=== PATIENT | male | born 1965 | race Caucasian/White ===

== ENCOUNTER → 2021-07-19 13:52 | Outpatient (BNVA) | payer OTHER, SELFPAY | PROVIDERS: PCP Internal Medicine; Visit Provider Internal Medicine Cardiovascular Disease | DX: I25.118 Atherosclerotic heart disease of native coronary artery with other forms of angina pectoris (principal) | CPT/HCPCS: 93005 ==

== ENCOUNTER → 2021-08-21 10:49 | Outpatient (REF) | payer OTHER, SELFPAY ==
--- NOTE | 2021-08-21 10:57 | CA_ITS ---
Acquisition Time: 2021-08-21 11:17:09 Total Exercise Time: 00:08:36 Test Indications: CP,PALPITAIONS Medications: SEE CHART Protocol: [place] Max HR: 169 BPM 102% of Pred: 165 BPM Max BP: 148/068 mmHG Max Work Load: 10.1 METS Exercise stress test with exercise 8 min 36 sec of [place] protocol, achieving 91% MPHR, with moderate shortness of breath, no chest discomfort, without arrythmia, with normotensive response to exercise, without EKG changes meeting criteria for ischemia. Heart rate noted to recover quickly. Echo images obtained by tech at rest and immediately post peak exercise. Definity contrast used. Test reviewed with Dr Silverio Referred By: Clifford Myrick Overread By: MADDIE JOHNSON
== END ==
LOC: HO.CARD 10:49
PROVIDERS: PCP Internal Medicine; Visit Provider Internal Medicine Cardiovascular Disease
DX: I20.8 Other forms of angina pectoris (principal); R07.9 Chest pain, unspecified; R00.2 Palpitations
CPT/HCPCS: 93350; Q9957

== ENCOUNTER → 2021-09-26 14:38 | Outpatient (BNVA) | payer OTHER, SELFPAY | PROVIDERS: PCP Internal Medicine; Visit Provider Internal Medicine Cardiovascular Disease | DX: Z13.89 Encounter for screening for other disorder (principal) ==

== ENCOUNTER → 2022-01-28 14:23 | Outpatient (BNVA) | payer OTHER, SELFPAY | PROVIDERS: PCP Internal Medicine; Visit Provider Internal Medicine Cardiovascular Disease | DX: I25.118 Atherosclerotic heart disease of native coronary artery with other forms of angina pectoris (principal) | CPT/HCPCS: 93005 ==

== ENCOUNTER 2022-06-03 11:28 | Inpatient (IN) | payer BC, SELFPAY ==
--- NOTE | ~2022-06-03 | XR_ITS ---
EXAMINATION: XR CHEST CLINICAL INFORMATION: Chest pain. COMPARISON: May 17, 2018. TECHNIQUE: Portable AP view of the chest was obtained. XR/XR chest 1V FINDINGS/IMPRESSION: The study is limited by portable technique and low lung volumes. There is no acute radiographic finding. No infiltrate, effusion, pneumothorax is appreciated as such. The cardiovascular structures, mediastinum, diaphragm, bones, and soft tissues appear unremarkable.
--- NOTE | 2022-06-03 11:31 | ECG_ITS ---
Test Reason : chest pain Blood Pressure : / mmHG Vent. Rate : 092 BPM Atrial Rate : 092 BPM P-R Int : 146 ms QRS Dur : 086 ms QT Int : 338 ms P-R-T Axes : 055 016 054 degrees QTc Int : 417 ms Normal sinus rhythm Normal ECG When compared with ECG of 18-MAY-2018 07:26, No significant change was found Referred By: Saeed Monsalve Electronically Signed By:BALJIT FISHMAN MD
[2022-06-03 11:32] VITALS: BP 150/90; PULSE 100; RESP 18; TEMP 36.4; O2SAT 98; BMI 31.6
--- NOTE | 2022-06-03 11:34 | ED.GENADULT ---
HPI - General Adult General Chief complaint: Chest Pain Stated complaint: Chest pain Time Seen by Provider: 06/03/22 13:00 Related Data Home Medications Medication Instructions Recorded Confirmed aspirin 81 mg tablet,delayed 81 mg PO DAILY 07/19/21 06/03/22 release lisinopril 10 mg tablet 10 mg PO DAILY 07/19/21 06/03/22 insulin glargine 100 unit/mL (3 20 unit subcut DAILY 01/28/22 06/03/22 mL) subcutaneous pen (Lantus Solostar U-100 Insulin) [employer] PACK 1 packet PO DAILY 06/03/22 06/03/22 atorvastatin 40 mg tablet 40 mg PO DAILY 06/03/22 06/03/22 Previous Rx's Medication Instructions Recorded heparin (porcine) 25,000 unit/250 25,000 unit (250 mL) continuous IV 06/03/22 mL in 0.45 % sodium chloride IV infusion .Q0M #6,000 mL soln heparin (porcine) 5,000 unit/mL 3,700 unit (0.74 mL) IVPUSH 06/03/22 injection solution PROTOCOL BOLUS PRN 40 Unit/Kg - Heparin Protocol #250 mL heparin (porcine) 5,000 unit/mL 7,300 unit (1.46 mL) IVPUSH 06/03/22 injection solution PROTOCOL BOLUS PRN 80 Unit/Kg - Heparin Protocol #25 mL metoprolol tartrate 25 mg tablet 12.5 mg PO BID #60 tabs 06/03/22 Allergies Allergy/AdvReac Type Severity Reaction Status Date / Time No Known Allergies Allergy Verified 01/28/22 14:24 [facility] Past Medical History Medical History CAD (coronary artery disease) HLD (hyperlipidemia) HTN (hypertension) Surgical History History of appendectomy History of cardiac cath History of neck surgery History of umbilical hernia repair Family History Family History Mother HTN (hypertension) Father HTN (hypertension) Social History Social History Alcohol intake: never Patient Tobacco Use Status: Never used Tobacco Smoked in Last 30 Days: No Use of substances other than those prescribed or required for medical reasons: No Any prior treatment program specific to substance use: No Advance Directives: No Advance Directives Information Provided: No Nutrition Risks: No Nutritional Risk Physical Exam ED Vital Signs: Vital Signs - 24 hr 06/03/22 11:32 06/03/22 14:10 Temperature 97.6 F Pulse Rate 100 89 Respiratory Rate 18 16 Blood Pressure 150/90 H 140/93 H Pulse Oximetry 98 95 Oxygen Delivery Method Room Air Room Air BMI result Body Mass Index 31.6 Course Course Course Narrative: RME: 56 yold male with pmh of stents presents to the ED for chest left sharp chest pain that began 30 minutes ago. Physical exam negative for leg swelling, calf pain, or pitting edema. patient denies pleurisy. EKG and labs ordered. EKG negative stemi. spoke with nurse serrano to have patient brought in. Due to medical history of two stents. Medications Administered Generic Name Dose Route Start Last Admin Trade Name Freq PRN Reason Stop Dose Admin Heparin Sodium/Sodium Chloride 25,000 unit in 250 mls @ 0 mls/hr 06/03/22 16:00 06/03/22 18:03 Heparin Sodium,Porcine/1/2ns IVCONT 10.91 units/kg/hr .Q0M JUTSYNA 10 mls/hr Titration Protocol Per Protocol Discontinued Medications Generic Name Dose Route Start Last Admin Trade Name Freq PRN Reason Stop Dose Admin Heparin Sodium (Porcine) 3,700 unit 06/03/22 16:13 06/03/22 16:28 Heparin Sodium,Porcine 5,000 Unit/Ml Vial IVPUSH 06/03/22 16:14 3,700 unit ONCE ONE Administration Nitroglycerin 0.5 inch 06/03/22 14:49 06/03/22 15:09 Nitroglycerin 2 % Oint 1 Gm Packet TRANSDERMA 06/03/22 14:50 0.5 inch ONCE ONE Administration Medical Decision Making Lab Data 06/03/22 11:51 06/03/22 11:51 Labs: Lab Results 06/03/22 06/03/22 06/03/22 Range/Units 11:51 11:51 11:51 WBC 11.4 H (4.8-10.8) X10*3/uL RBC 5.39 (4.60-5.80) X10*6/uL Hgb 16.4 (14.0-18.0) g/dl Hct 47.2 (42.0-52.0) % MCV 87.6 (80.0-98.0) fL MCH 30.4 (27.0-33.0) pg MCHC 34.7 (31.0-36.0) g/dl RDW 12.4 (11.0-16.0) % Plt Count 273 (160-400) X10*3/uL MPV 8.5 L (9.4-12.4) fL Immature Gran % (Auto) 0.4 (0.0-0.4) % Neut % (Auto) 79.2 H (45-73) % Lymph % (Auto) 12.3 L (20-40) % Garden % (Auto) 6.1 (2-11) % Eos % (Auto) 1.3 (0-4) % Baso % (Auto) 0.7 (0-2) % Lymph # (Auto) 1.4 (1.2-4.9) X10*3/uL [place] # (Auto) 0.7 (0.1-1.2) X10*3/uL Eos # (Auto) 0.2 (0.0-0.4) X10*3/uL Baso # (Auto) 0.1 (0.0-0.2) X10*3/uL Abs Immat Gran (auto) 0.04 H (0.00-0.03) X10*3/uL Absolute Neuts (auto) 9.0 H (2.0-8.3) x10*3/uL Absolute Nucleated RBC 0.000 (0.0-0.012) X10*3/uL Nucleated RBC % (auto) 0.0 (0.0-0.2) /100WBC PT 11.3 (10.0-13.1) SEC INR 1.0 (0.9-1.1) APTT 30.5 (26.0-36.4) SEC D-Dimer High Sensitivty NG/ML Sodium 137 (135-145) mmol/L Potassium 4.5 (3.3-5.1) mmol/L Chloride 107 (96-108) mmol/L Carbon Dioxide 20 L (22-29) mmol/L Anion Gap 15 (12-20) BUN 19 H (9-16) mg/dL Creatinine 1.07 (0.5-1.4) mg/dL Estim Creat Clear Calc 83.2 Estimated GFR > 60 Random Glucose 199 H (60-115) mg/dL Calcium 9.5 (8.4-10.2) mg/dL Total Bilirubin 0.6 (0.0-1.0) mg/dL AST 22 (5-37) U/L ALT 36 (0-40) U/L Alkaline Phosphatase 61 (39-117) U/L Troponin I High Sens (<3.5-35.0) ng/L B-Natriuretic Peptide (<100) pg/mL Total Protein 6.8 (6.5-8.0) g/dL Albumin 4.1 (3.5-5.0) g/dL Influenza Type A (PCR) (Negative) Influenza Type B (PCR) (Negative) RSV RNA Qual (PCR) (Negative) SARS-CoV-2 RNA (RT-PCR) (Negative) 06/03/22 06/03/22 06/03/22 Range/Units 11:51 11:51 11:51 WBC (4.8-10.8) X10*3/uL RBC (4.60-5.80) X10*6/uL Hgb (14.0-18.0) g/dl Hct (42.0-52.0) % MCV (80.0-98.0) fL MCH (27.0-33.0) pg MCHC (31.0-36.0) g/dl RDW (11.0-16.0) % Plt Count (160-400) X10*3/uL MPV (9.4-12.4) fL Immature Gran % (Auto) (0.0-0.4) % Neut % (Auto) (45-73) % Lymph % (Auto) (20-40) % [place] % (Auto) (2-11) % Eos % (Auto) (0-4) % Baso % (Auto) (0-2) % Lymph # (Auto) (1.2-4.9) X10*3/uL [place] # (Auto) (0.1-1.2) X10*3/uL Eos # (Auto) (0.0-0.4) X10*3/uL Baso # (Auto) (0.0-0.2) X10*3/uL Abs Immat Gran (auto) (0.00-0.03) X10*3/uL Absolute Neuts (auto) (2.0-8.3) x10*3/uL Absolute Nucleated RBC (0.0-0.012) X10*3/uL Nucleated RBC % (auto) (0.0-0.2) /100WBC PT (10.0-13.1) SEC INR (0.9-1.1) APTT (26.0-36.4) SEC D-Dimer High Sensitivty NG/ML Sodium (135-145) mmol/L Potassium (3.3-5.1) mmol/L Chloride (96-108) mmol/L Carbon Dioxide (22-29) mmol/L Anion Gap (12-20) BUN (9-16) mg/dL Creatinine (0.5-1.4) mg/dL Estim Creat Clear Calc Estimated GFR Random Glucose (60-115) mg/dL Calcium (8.4-10.2) mg/dL Total Bilirubin (0.0-1.0) mg/dL AST (5-37) U/L ALT (0-40) U/L Alkaline Phosphatase (39-117) U/L Troponin I High Sens < 3.5 (<3.5-35.0) ng/L B-Natriuretic Peptide < 10 (<100) pg/mL Total Protein (6.5-8.0) g/dL Albumin (3.5-5.0) g/dL Influenza Type A (PCR) NEGATIVE (Negative) Influenza Type B (PCR) NEGATIVE (Negative) RSV RNA Qual (PCR) NEGATIVE (Negative) SARS-CoV-2 RNA (RT-PCR) NEGATIVE (Negative) 06/03/22 06/03/22 Range/Units 14:05 14:05 WBC (4.8-10.8) X10*3/uL RBC (4.60-5.80) X10*6/uL Hgb (14.0-18.0) g/dl Hct (42.0-52.0) % MCV (80.0-98.0) fL MCH (27.0-33.0) pg MCHC (31.0-36.0) g/dl RDW (11.0-16.0) % Plt Count (160-400) X10*3/uL MPV (9.4-12.4) fL Immature Gran % (Auto) (0.0-0.4) % Neut % (Auto) (45-73) % Lymph % (Auto) (20-40) % [place] % (Auto) (2-11) % Eos % (Auto) (0-4) % Baso % (Auto) (0-2) % Lymph # (Auto) (1.2-4.9) X10*3/uL [place] # (Auto) (0.1-1.2) X10*3/uL Eos # (Auto) (0.0-0.4) X10*3/uL Baso # (Auto) (0.0-0.2) X10*3/uL Abs Immat Gran (auto) (0.00-0.03) X10*3/uL Absolute Neuts (auto) (2.0-8.3) x10*3/uL Absolute Nucleated RBC (0.0-0.012) X10*3/uL Nucleated RBC % (auto) (0.0-0.2) /100WBC PT (10.0-13.1) SEC INR (0.9-1.1) APTT (26.0-36.4) SEC D-Dimer High Sensitivty < 150 NG/ML Sodium (135-145) mmol/L Potassium (3.3-5.1) mmol/L Chloride (96-108) mmol/L Carbon Dioxide (22-29) mmol/L Anion Gap (12-20) BUN (9-16) mg/dL Creatinine (0.5-1.4) mg/dL Estim Creat Clear Calc Estimated GFR Random Glucose (60-115) mg/dL Calcium (8.4-10.2) mg/dL Total Bilirubin (0.0-1.0) mg/dL AST (5-37) U/L ALT (0-40) U/L Alkaline Phosphatase (39-117) U/L Troponin I High Sens 38.0 H D (<3.5-35.0) ng/L B-Natriuretic Peptide (<100) pg/mL Total Protein (6.5-8.0) g/dL Albumin (3.5-5.0) g/dL Influenza Type A (PCR) (Negative) Influenza Type B (PCR) (Negative) RSV RNA Qual (PCR) (Negative) SARS-CoV-2 RNA (RT-PCR) (Negative) Discharge Plan Discharge Clinical Impression: CAD (coronary artery disease), Unstable angina pectoris, Acute non-ST elevation myocardial infarction (NSTEMI) Patient Disposition: Admitted As Inpatient
[2022-06-03 11:59] LABS: MANUAL DIFF FLAG NO
[2022-06-03 12:02] LABS: Basophils Absolute Auto 0.1 X10*3/uL (0.0-0.2); Basophils Percent Auto 0.7 % (0-2); Eosinophils Absolute Auto 0.2 X10*3/uL (0.0-0.4); Eosinophils Percent Auto 1.3 % (0-4); Hematocrit 47.2 % (42.0-52.0); Hemoglobin 16.4 g/dl (14.0-18.0); Imm Gran Abs Auto 0.04 X10*3/uL (0.00-0.03); Imm Gran Pct Auto 0.4 % (0.0-0.4); Lymphocytes Absolute Auto 1.4 X10*3/uL (1.2-4.9); Lymphocytes Percent Auto 12.3 % (20-40); Mean Corpuscular HGB Conc 34.7 g/dl (31.0-36.0); Mean Corpuscular Hemoglobin 30.4 pg (27.0-33.0); Mean Corpuscular Volume 87.6 fL (80.0-98.0); Mean Platelet Volume 8.5 fL (9.4-12.4); Monocytes Absolute Auto 0.7 X10*3/uL (0.1-1.2); Monocytes Percent Auto 6.1 % (2-11); Neutrophils Percent Auto 79.2 % (45-73); Platelet Count 273 X10*3/uL (160-400); Red Blood Count 5.39 X10*6/uL (4.60-5.80); Red Cell Distribution Width 12.4 % (11.0-16.0); White Blood Count 11.4 X10*3/uL (4.8-10.8)
[2022-06-03 12:08] LABS: Prothrombin Time 11.3 SEC (10.0-13.1)
[2022-06-03 12:11] LABS: Partial Thromboplastin Time 30.5 SEC (26.0-36.4)
[2022-06-03 12:15] LABS: Alanine Aminotransferase 36 U/L (0-40); Albumin Level 4.1 g/dL (3.5-5.0); Alkaline Phosphatase 61 U/L (39-117); Anion Gap 15 (12-20); Aspartate Amino Transferase 22 U/L (5-37); Bilirubin Total 0.6 mg/dL (0.0-1.0); Blood Urea Nitrogen 19 mg/dL (9-16); Calcium 9.5 mg/dL (8.4-10.2); Carbon Dioxide 20 mmol/L (22-29); Chloride 107 mmol/L (96-108); Creatinine Clr Calc Pharmacy 83.2; Estimated Glomerular Filt Rate > 60; Glucose Random 199 mg/dL (60-115); Potassium 4.5 mmol/L (3.3-5.1); Sodium 137 mmol/L (135-145); Total Protein 6.8 g/dL (6.5-8.0)
[2022-06-03 12:20] LABS: B Type Natriuretic Peptide < 10 pg/mL (<100)
[2022-06-03 12:29] LABS: Troponin-I High Sensitivity < 3.5 ng/L (<3.5-35.0)
[2022-06-03 12:39] LABS: Influenza A PCR NEGATIVE (Negative); Influenza B PCR NEGATIVE (Negative); Resp Syncy Virus RNA Qual PCR NEGATIVE (Negative); SARS COV2 PCR INHOUSE NEGATIVE (Negative)
--- NOTE | 2022-06-03 13:21 | ED_ITS ---
HPI - Chest Pain General Chief Complaint: Chest Pain Stated Complaint: Chest pain Time Seen by Provider: 06/03/22 13:00 Source: patient and old records reviewed Limitations: no limitations History of Present Illness HPI narrative: Patient arrives complaining of chest pain. It is left-sided. Sharp at 1st and at times of pressure. Worse with deep breath. 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 No recent illnesses. No causative or precipitating factors that he can think of. He is concerned because he has a history of PCI with stent placement in 2019. He has since had occasional chest pain. His last stress test was July of 2021, 10 months ago, and was a normal stress echo. No wall motion abnormality at that time. No recent medication changes or health status changes. Pain is left-sided and nonradiating. No nausea vomiting. No shortness of br eath. No recent cough. Cardiac risk factors include family history, diabetes, prior cardiovascular disease. No thromboembolic history or risk factors Related Data Home Medications Medication Instructions Recorded Confirmed aspirin 81 mg tablet,delayed 81 mg PO DAILY 07/19/21 01/28/22 release lisinopril 10 mg tablet 10 mg PO DAILY 07/19/21 01/28/22 insulin glargine 100 unit/mL (3 unit subcut 01/28/22 01/28/22 mL) subcutaneous pen (Lantus Solostar U-100 Insulin) Previous Rx's Medication Instructions Recorded atorvastatin 40 mg tablet 40 mg PO BEDTIME #60 tabs 07/19/21 Allergies Allergy/AdvReac Type Severity Reaction Status Date / Time No Known Allergies Allergy Verified 01/28/22 14:24 Review of Systems Constitutional: Comments: No fevers or chills Cardiovascular: Comments: Chest pain as described Respiratory: Comments: No dyspnea. No cough Gastrointestinal: Comments: No nausea or vomiting Musculoskeletal: Comments: No leg pain or swelling PMFSH Past Medical History Surgical History History of appendectomy History of cardiac cath History of neck surgery History of umbilical hernia repair Family History Family History Mother HTN (hypertension) Father HTN (hypertension) Social History Social History Alcohol intake: never Patient Tobacco Use Status: Never used Tobacco Smoked in Last 30 Days: No Use of substances other than those prescribed or required for medical reasons: No Any prior treatment program specific to substance use: No Advance Directives: No Advance Directives Information Provided: No Physical Exam Vital Signs: Vital Signs: Last Vital Signs Temp 97.6 F 06/03/22 11:32 Pulse 89 06/03/22 14:10 Resp 16 06/03/22 14:10 BP 140/93 H 06/03/22 14:10 Pulse Ox 95 06/03/22 14:10 O2 Del Method 06/03/22 14:10 BMI result Body Mass Index 31.6 Const: Other: Awake alert. No acute distress. Anxious appearing Chest: Other: Tender to palpation inferior to left pectoralis muscle. This reproduces some of his pain Resp: Other: Clear and equal bilaterally without wheezes rales or rhonchi. Good air entry Cardio: Other: Regular rate and rhythm without murmurs rubs or gallops GI: Other: Soft nontender nondistended Skin: Other: Warm pink and dry Neuro: Other: Nonfocal Psych: Other: Anxious Medications Administered Discontinued Medications Generic Name Dose Route Start Last Admin Trade Name Freq PRN Reason Stop Dose Admin Nitroglycerin 0.5 inch 06/03/22 14:49 06/03/22 15:09 Nitroglycerin 2 % Oint 1 Gm Packet TRANSDERMA 06/03/22 14:50 0.5 inch ONCE ONE Administration Medical Decision Making Medical Decision Making MDM Narrative: Patient with history of prior coronary artery disease with stent placement 4 years ago. He presents today with left-sided chest pain. It is atypical in that it is s lightly sharp and worse with inspiration. He does state that it feels similar to prior to his stent placement. EKG from triage shows normal sinus rhythm without ST elevation or depression. Will do cardiac workup in add on a D-dimer as well. The meantime treat with nitroglycerin and evaluated for her changes in discomfort. 13:27. CBC significant for white count of 11.4 but otherwise normal. Chemistry showed normal creatinine. Glucose is 199. Troponin is less than 3.5.. BNP is normal. Chest x-ray is normal. Will repeat troponin. And re-evaluate after nitroglycerin. Will administer other pain medication as needed 14:49. Patient states pain resolved spontaneously. He did not receive the nitroglycerin. His 2nd troponin is 38, however. Elevated from his 1st value of less than 3.5. 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 15:50. Input from Dr. Linares, cardiology, recommends heparin drip. Will hospitalize here and trend his troponins Lab Data 06/03/22 11:51 06/03/22 11:51 Labs: Lab Results 06/03/22 06/03/22 06/03/22 Range/Units 11:51 11:51 11:51 WBC 11.4 H (4.8-10.8) X10*3/uL RBC 5.39 (4.60-5.80) X10*6/uL Hgb 16.4 (14.0-18.0) g/dl Hct 47.2 (42.0-52.0) % MCV 87.6 (80.0-98.0) fL MCH 30.4 (27.0-33.0) pg MCHC 34.7 (31.0-36.0) g/dl RDW 12.4 (11.0-16.0) % Plt Count 273 (160-400) X10*3/uL MPV 8.5 L (9.4-12.4) fL Immature Gran % (Auto) 0.4 (0.0-0.4) % Neut % (Auto) 79.2 H (45-73) % Lymph % (Auto) 12.3 L (20-40) % [place] % (Auto) 6.1 (2-11) % Eos % (Auto) 1.3 (0-4) % Baso % (Auto) 0.7 (0-2) % Lymph # (Auto) 1.4 (1.2-4.9) X10*3/uL [place] # (Auto) 0.7 (0.1-1.2) X10*3/uL Eos # (Auto) 0.2 (0.0-0.4) X10*3/uL Baso # (Auto) 0.1 (0.0-0.2) X10*3/uL Abs Immat Gran (auto) 0.04 H (0.00-0.03) X10*3/uL Absolute Neuts (auto) 9.0 H (2.0-8.3) x10*3/uL Absolute Nucleated RBC 0.000 (0.0-0.012) X10*3/uL Nucleated RBC % (auto) 0.0 (0.0-0.2) /100WBC PT 11.3 (10.0-13.1) SEC INR 1.0 (0.9-1.1) APTT 30.5 (26.0-36.4) SEC D-Dimer High Sensitivty NG/ML Sodium 137 (135-145) mmol/L Potassium 4.5 (3.3-5.1) mmol/L Chloride 107 (96-108) mmol/L Carbon Dioxide 20 L (22-29) mmol/L Anion Gap 15 (12-20) BUN 19 H (9-16) mg/dL Creatinine 1.07 (0.5-1.4) mg/dL Estim Creat Clear Calc 83.2 Estimated GFR > 60 Random Glucose 199 H (60-115) mg/dL Calcium 9.5 (8.4-10.2) mg/dL Total Bilirubin 0.6 (0.0-1.0) mg/dL AST 22 (5-37) U/L ALT 36 (0-40) U/L Alkaline Phosphatase 61 (39-117) U/L Troponin I High Sens (<3.5-35.0) ng/L B-Natriuretic Peptide (<100) pg/mL Total Protein 6.8 (6.5-8.0) g/dL Albumin 4.1 (3.5-5.0) g/dL Influenza Type A (PCR) (Negative) Influenza Type B (PCR) (Negative) RSV RNA Qual (PCR) (Negative) SARS-CoV-2 RNA (RT-PCR) (Negative) 06/03/22 06/03/22 06/03/22 Range/Units 11:51 11:51 11:51 WBC (4.8-10.8) X10*3/uL RBC (4.60-5.80) X10*6/uL Hgb (14.0-18.0) g/dl Hct (42.0-52.0) % MCV (80.0-98.0) fL MCH (27.0-33.0) pg MCHC (31.0-36.0) g/dl RDW (11.0-16.0) % Plt Count (160-400) X10*3/uL MPV (9.4-12.4) fL Immature Gran % (Auto) (0.0-0.4) % Neut % (Auto) (45-73) % Lymph % (Auto) (20-40) % [place] % (Auto) (2-11) % Eos % (Auto) (0-4) % Baso % (Auto) (0-2) % Lymph # (Auto) (1.2-4.9) X10*3/uL [place] # (Auto) (0.1-1.2) X10*3/uL Eos # (Auto) (0.0-0.4) X10*3/uL Baso # (Auto) (0.0-0.2) X10*3/uL Abs Immat Gran (auto) (0.00-0.03) X10*3/uL Absolute Neuts (auto) (2.0-8.3) x10*3/uL Absolute Nucleated RBC (0.0-0.012) X10*3/uL Nucleated RBC % (auto) (0.0-0.2) /100WBC PT (10.0-13.1) SEC INR (0.9-1.1) APTT (26.0-36.4) SEC D-Dimer High Sensitivty NG/ML Sodium (135-145) mmol/L Potassium (3.3-5.1) mmol/L Chloride (96-108) mmol/L Carbon Dioxide (22-29) mmol/L Anion Gap (12-20) BUN (9-16) mg/dL Creatinine (0.5-1.4) mg/dL Estim Creat Clear Calc Estimated GFR Random Glucose (60-115) mg/dL Calcium (8.4-10.2) mg/dL Total Bilirubin (0.0-1.0) mg/dL AST (5-37) U/L ALT (0-40) U/L Alkaline Phosphatase (39-117) U/L Troponin I High Sens < 3.5 (<3.5-35.0) ng/L B-Natriuretic Peptide < 10 (<100) pg/mL Total Protein (6.5-8.0) g/dL Albumin (3.5-5.0) g/dL Influenza Type A (PCR) NEGATIVE (Negative) Influenza Type B (PCR) NEGATIVE (Negative) RSV RNA Qual (PCR) NEGATIVE (Negative) SARS-CoV-2 RNA (RT-PCR) NEGATIVE (Negative) 06/03/22 06/03/22 Range/Units 14:05 14:05 WBC (4.8-10.8) X10*3/uL RBC (4.60-5.80) X10*6/uL Hgb (14.0-18.0) g/dl Hct (42.0-52.0) % MCV (80.0-98.0) fL MCH (27.0-33.0) pg MCHC (31.0-36.0) g/dl RDW (11.0-16.0) % Plt Count (160-400) X10*3/uL MPV (9.4-12.4) fL Immature Gran % (Auto) (0.0-0.4) % Neut % (Auto) (45-73) % Lymph % (Auto) (20-40) % [place] % (Auto) (2-11) % Eos % (Auto) (0-4) % Baso % (Auto) (0-2) % Lymph # (Auto) (1.2-4.9) X10*3/uL [place] # (Auto) (0.1-1.2) X10*3/uL Eos # (Auto) (0.0-0.4) X10*3/uL Baso # (Auto) (0.0-0.2) X10*3/uL Abs Immat Gran (auto) (0.00-0.03) X10*3/uL Absolute Neuts (auto) (2.0-8.3) x10*3/uL Absolute Nucleated RBC (0.0-0.012) X10*3/uL Nucleated RBC % (auto) (0.0-0.2) /100WBC PT (10.0-13.1) SEC INR (0.9-1.1) APTT (26.0-36.4) SEC D-Dimer High Sensitivty < 150 NG/ML Sodium (135-145) mmol/L Potassium (3.3-5.1) mmol/L Chloride (96-108) mmol/L Carbon Dioxide (22-29) mmol/L Anion Gap (12-20) BUN (9-16) mg/dL Creatinine (0.5-1.4) mg/dL Estim Creat Clear Calc Estimated GFR Random Glucose (60-115) mg/dL Calcium (8.4-10.2) mg/dL Total Bilirubin (0.0-1.0) mg/dL AST (5-37) U/L ALT (0-40) U/L Alkaline Phosphatase (39-117) U/L Troponin I High Sens 38.0 H D (<3.5-35.0) ng/L B-Natriuretic Peptide (<100) pg/mL Total Protein (6.5-8.0) g/dL Albumin (3.5-5.0) g/dL Influenza Type A (PCR) (Negative) Influenza Type B (PCR) (Negative) RSV RNA Qual (PCR) (Negative) SARS-CoV-2 RNA (RT-PCR) (Negative) Critical Care Time Critical Care Time Critical Care Time: Yes Total Critical Care Time: 100 Attestation: Critical care secondary to acute cardiac ischemia requiring cardiology input and heparin infusion. Troponins trending upwards. Discharge Plan Discharge Patient Disposition: Admitted As Inpatient Prescriptions: No Action lisinopril 10 mg tablet 10 mg PO DAILY aspirin 81 mg tablet,delayed release (DR/EC) 81 mg PO DAILY atorvastatin 40 mg tablet 40 mg PO BEDTIME Qty: 60 3RF insulin glargine [Lantus Solostar U-100 Insulin] 100 unit/mL (3 mL) insulin pen subcut
[2022-06-03 14:10] VITALS: BP 140/93; PULSE 89; RESP 16; O2SAT 95
--- NOTE | 2022-06-03 14:13 | PC.NURSE ---
SR ON MONITOR, HAD BRIEF EPISODE OF CP LASTING 30 SECONDS, NITRO HELD, IV IN PLACE, SKIN WPD. NAD
--- NOTE | 2022-06-03 14:49 | ECG_ITS ---
Test Reason : cx pain Blood Pressure : / mmHG Vent. Rate : 082 BPM Atrial Rate : 082 BPM P-R Int : 166 ms QRS Dur : 086 ms QT Int : 366 ms P-R-T Axes : 041 -02 039 degrees QTc Int : 427 ms Normal sinus rhythm Normal ECG When compared with ECG of 03-JUN-2022 11:36, No significant change was found Referred By: Marc Posey Electronically Signed By:BALJIT FISHMAN MD
[2022-06-03 14:56] LABS: D Dimer High Sensitivity < 150 NG/ML
[2022-06-03] MEDS: Nitroglycerin 2 % Oint 1 GM Packet 0.5 INCH TRANSDERMA (15:09)
--- NOTE | 2022-06-03 15:13 | PC.NURSE ---
report received from EVAN Piña Pt resting comfortably on stretcher at this time, denies chest pain at this time, no SOB
--- NOTE | 2022-06-03 16:18 | P.HPHOSP_ITS ---
History of Present Illness Date of Service: 06/03/22 Chief Complaint: Chest pain 55-year-old gentleman with background history of coronary artery disease and had NSTEMI in April 2018 and had a stent and another NSTEMI and had mid RCA stent in june 2018, HTN, HLD. He comes in today with sudden onset of chest pain while working on computer, 02/04 lasting about 45 minutes and took nothing prior to comingin, pain better after nitro. Associated with shortness of breath and anxiety, ECG show, troponin I has increased from <3.5 to 38. He has been initiated on heparin drip in addtion for ACS and cardiology advised admission and possible transfer for cath a later time. Review of Systems Review of Systems: Gen: no fever Resp: no sob, no cough CV: + chest, no PRUETT, no leg edema GI: No n/v, no abd pain Neuro: No confusion [facility] Medical History (Updated 06/03/22 @ 16:31 by Octavio Tyson MD) CAD (coronary artery disease) HLD (hyperlipidemia) HTN (hypertension) Family History Mother HTN (hypertension) Father HTN (hypertension) Surgical History History of appendectomy History of cardiac cath History of neck surgery History of umbilical hernia repair Social History Alcohol intake: never Patient Tobacco Use Status: Never used Tobacco Smoked in Last 30 Days: No Use of substances other than those prescribed or required for medical reasons: No Any prior treatment program specific to substance use: No Advance Directives: No Advance Directives Information Provided: No Meds Allergies Allergy/AdvReac Type Severity Reaction Status Date / Time No Known Allergies Allergy Verified 01/28/22 14:24 Active Medications: Current Medications Heparin Sodium (Porcine) (Heparin Sodium,Porcine 5,000 Unit/Ml Vial) 3,700 unit 40 unit/kg (3700 unit) IVPUSH PROTOCOL BOLUS PRN; Protocol PRN Reason: 40 unit/kg - Heparin Protocol Heparin Sodium (Porcine) (Heparin Sodium,Porcine 5,000 Unit/Ml Vial) 7,300 unit 80 unit/kg (7300 unit) IVPUSH PROTOCOL BOLUS PRN; Protocol PRN Reason: 80 unit/kg - Heparin Protocol Heparin Sodium/Sodium Chloride (Heparin Sodium,Porcine/1/2ns) 25,000 unit in 250 mls @ 0 mls/hr IVCONT .Q0M JUSTYNA; Protocol Nitroglycerin (Nitroglycerin 0.4 Mg Tab.Subl) 0.4 mg SUBLINGUAL Q5MX3 PRN PRN Reason: chest pain Home Medications Medication Instructions Recorded Confirmed Last Taken Type aspirin 81 mg tablet,delayed 81 mg PO DAILY 07/19/21 01/28/22 Unknown History release lisinopril 10 mg tablet 10 mg PO DAILY 07/19/21 01/28/22 Unknown History insulin glargine 100 unit/mL (3 unit subcut 01/28/22 01/28/22 Unknown History mL) subcutaneous pen (Lantus Solostar U-100 Insulin) Physical Exam Vital Signs and Narrative: Vital Signs: Last Vital Signs Temp 97.6 F 06/03/22 11:32 Pulse 89 06/03/22 14:10 Resp 16 06/03/22 14:10 BP 140/93 H 06/03/22 14:10 Pulse Ox 95 06/03/22 14:10 O2 Del Method 06/03/22 14:10 BMI result Body Mass Index 31.6 Const: Other: Constitutional: Alert, in no distress, Mental Status: Oriented to person, place and time. Eyes: Pupils are equal, round and reactive to light. Ear, Nose and Throat: Oropharynx clear, mucous membranes moist. Ears and nose without deformities. Respiratory: Clear to auscultation. No wheezing, rales or rhonchi. Cardiovascular: S1 S2 regular. No murmurs, rubs or gallops. Gastrointestinal: Abdomen soft, non-tender, non-distended. Normal bowel sounds.? Neurologic: Cranial nerves II-XII grossly intact. No focal neurological deficits. Moves all extremities spontaneously.? Skin: No rashes or lesions.? Musculoskeletal: No cyanosis or clubbing. Psychiatric: Normal mood and affect? Results Labs 06/03/22 11:51 06/03/22 11:51 Labs: Laboratory Results - last 24 hr 06/03/22 06/03/22 06/03/22 11:51 11:51 11:51 MCV 87.6 MCH 30.4 MCHC 34.7 RDW 12.4 Plt Count 273 MPV 8.5 L Immature Gran % (Auto) 0.4 Neut % (Auto) 79.2 H Lymph % (Auto) 12.[address] [place] % (Auto) 6.1 Eos % (Auto) 1.3 Baso % (Auto) 0.7 Lymph # (Auto) 1.4 [place] # (Auto) 0.7 Eos # (Auto) 0.2 Baso # (Auto) 0.1 Abs Immat Gran (auto) 0.04 H Absolute Neuts (auto) 9.0 H Absolute Nucleated RBC 0.000 Nucleated RBC % (auto) 0.0 PT 11.3 INR 1.0 APTT 30.5 D-Dimer High Sensitivty Anion Gap 15 Estim Creat Clear Calc 83.2 Estimated GFR > 60 Random Glucose 199 H Calcium 9.5 Total Bilirubin 0.6 AST 22 ALT 36 Alkaline Phosphatase 61 Troponin I High Sens B-Natriuretic Peptide Total Protein 6.8 Albumin 4.1 Influenza Type A (PCR) Influenza Type B (PCR) RSV RNA Qual (PCR) SARS-CoV-2 RNA (RT-PCR) 06/03/22 06/03/22 06/03/22 11:51 11:51 11:51 MCV MCH MCHC RDW Plt Count MPV Immature Gran % (Auto) Neut % (Auto) Lymph % (Auto) [place] % (Auto) Eos % (Auto) Baso % (Auto) Lymph # (Auto) [place] # (Auto) Eos # (Auto) Baso # (Auto) Abs Immat Gran (auto) Absolute Neuts (auto) Absolute Nucleated RBC Nucleated RBC % (auto) PT INR APTT D-Dimer High Sensitivty Anion Gap Estim Creat Clear Calc Estimated GFR Random Glucose Calcium Total Bilirubin AST ALT Alkaline Phosphatase Troponin I High Sens < 3.5 B-Natriuretic Peptide < 10 Total Protein Albumin Influenza Type A (PCR) NEGATIVE Influenza Type B (PCR) NEGATIVE RSV RNA Qual (PCR) NEGATIVE SARS-CoV-2 RNA (RT-PCR) NEGATIVE 06/03/22 06/03/22 14:05 14:05 MCV MCH MCHC RDW Plt Count MPV Immature Gran % (Auto) Neut % (Auto) Lymph % (Auto) [place] % (Auto) Eos % (Auto) Baso % (Auto) Lymph # (Auto) [place] # (Auto) Eos # (Auto) Baso # (Auto) Abs Immat Gran (auto) Absolute Neuts (auto) Absolute Nucleated RBC Nucleated RBC % (auto) PT INR APTT D-Dimer High Sensitivty < 150 Anion Gap Estim Creat Clear Calc Estimated GFR Random Glucose Calcium Total Bilirubin AST ALT Alkaline Phosphatase Troponin I High Sens 38.0 H D B-Natriuretic Peptide Total Protein Albumin Influenza Type A (PCR) Influenza Type B (PCR) RSV RNA Qual (PCR) SARS-CoV-2 RNA (RT-PCR) Imaging Radiologist's Impressions: Impressions Chest X-Ray 06/03/22 11:57 FINDINGS/IMPRESSION: The study is limited by portable technique and low lung volumes. There is no acute radiographic finding. No infiltrate, effusion, pneumothorax is appreciated as such. The cardiovascular structures, mediastinum, diaphragm, bones, and soft tissues appear unremarkable. Assessment and Plan (1) Acute non-ST elevation myocardial infarction (NSTEMI): Status: Acute (2) HLD (hyperlipidemia): Status: Acute (3) HTN (hypertension): Status: Acute Plan 55-year-old gentleman with background history of coronary artery disease for which he underwent mid RCA stent in 2019, HTN, HLD here with chest pain and rise in troponin I level consistent with NSTEMI 1/NSTEMI--started on heparin, add BB and continue Lipitor, and ASA. Cardiology to assess for further management. 2/HLD--continue Lipitor but increase to 80 3/HTn--continue Lisinopril and addition to added BB 4/ Diabetes- Lantus and SSI, Diabetic diet 5/DVT P heparin Full cose admission for at least 2 midnight for management of ACS needing IV heparin Time Spent With Patient Time: Total time managing care of this patient today ____ minutes. Quality Stroke Does the patient have a stroke diagnosis?: No VTE Prior VTE?: No VTE Risk Level:: Medical - moderate - high VTE Device Contraindication: Treatment Not Tolerated VTE Drug Contraindication: N/A - Med Ordered
[2022-06-03] MEDS: Heparin Sodium,Porcine 5,000 UNIT/ML VIAL 3700 UNIT IVPUSH (16:28)
[2022-06-03] MEDS: Heparin Sodium,Porcine/1/2NS 25,000 UNIT/250 ML IV.SOLN 9.16 UNIT IVCONT (16:29)
[2022-06-03 17:12] VITALS: BP 128/83; PULSE 89; RESP 18; TEMP 36.7; O2SAT 93
--- NOTE | 2022-06-03 17:13 | PM.CNCAR ---
History of Present Illness History of Present Illness Date of Service: 06/03/22 Requesting physician: Marc Posey Consult reason: other (Acute coronary syndrome) Chief complaint: NSTMI Narrative: I was consulted to see our noticed in cardiology consultation today for acute onset chest discomfort at work at rest. Patient is 56-year-old male in 2019 underwent sequential stenting initially to LAD and subsequently to RCA for acute coronary syndrome. Patient since then has done well. Recently was having some exertional chest discomfort underwent stress testing within last 6 months which was negative for ischemia. He was otherwise doing well. Has history of diabetes and hyperlipidemia. Has been taking all his medications religiously. Today at work he developed sudden-onset retrosternal chest discomfort which she describes as sharp twisting knife-like pain similar to his pain when he presented with acute coronary syndrome. Symptoms with the rest associated with anxiety and shortness of breath. Symptoms lasted for about an hour and half. He came to the Emergency. EKGs nonischemic. Initial troponin was 3 and subsequent troponin to 38. He has been started on IV heparin therapy. Remains very anxious and frustrated about his recurrent hospitalization now. No recent lipid panel. Review of Systems Constitutional: Constitutional: Reports no additional constitutional complaints Eyes: Eyes: Reports no additional eye complaints Cardiovascular: Cardiovascular: Reports chest pain at rest, Denies leg edema, Denies lightheadedness, Denies Loss of Consciousness, Denies palpitations and Reports dyspnea Respiratory: Respiratory: Reports no additional respiratory complaints and Reports dyspnea Gastrointestinal: Gastrointestinal: Reports no additional gastrointestinal complaints Genitourinary: Genitourinary: Reports no additional male genitourinary complaints Musculoskeletal: Musculoskeletal: Reports no additional musculoskeletal complaints Integumentary/Breasts: Skin/Breast: Reports system reviewed and no additional complaints, except as docu Neurologic: Reports system reviewed and no additional complaints, except as documented Psychiatric: Psychiatric: Reports anxiety and Reports irritability Endocrine: Endocrine: Denies palpitations [facility] Past Medical History Medical History CAD (coronary artery disease) HLD (hyperlipidemia) HTN (hypertension) Family History Family History Mother HTN (hypertension) Father HTN (hypertension) Surgical History Surgical History History of appendectomy History of cardiac cath History of neck surgery History of umbilical hernia repair Social History Social History Alcohol intake: never Patient Tobacco Use Status: Never used Tobacco Smoked in Last 30 Days: No Use of substances other than those prescribed or required for medical reasons: No Any prior treatment program specific to substance use: No Advance Directives: No Advance Directives Information Provided: No Meds Allergies Allergy/AdvReac Type Severity Reaction Status Date / Time No Known Allergies Allergy Verified 01/28/22 14:24 Active Medications: Current Medications Acetaminophen (Acetaminophen 325 Mg Tablet) 650 mg PO Q6H PRN PRN Reason: Pain, Mild (Pain Scale 1-3) Docusate Sodium (Docusate Sodium 100 Mg Capsule) 100 mg PO BID [facility] Heparin Sodium (Porcine) (Heparin Sodium,Porcine 5,000 Unit/Ml Vial) 3,700 unit 40 unit/kg (3700 unit) IVPUSH PROTOCOL BOLUS PRN; Protocol PRN Reason: 40 unit/kg - Heparin Protocol Heparin Sodium (Porcine) (Heparin Sodium,Porcine 5,000 Unit/Ml Vial) 7,300 unit 80 unit/kg (7300 unit) IVPUSH PROTOCOL BOLUS PRN; Protocol PRN Reason: 80 unit/kg - Heparin Protocol Heparin Sodium/Sodium Chloride (Heparin Sodium,Porcine/1/2ns) 25,000 unit in 250 mls @ 0 mls/hr IVCONT .Q0M [facility]; Protocol Last Admin: 06/03/22 16:29 Dose: 10 units/kg/hr, 9.16 mls/hr Magnesium Hydroxide (Milk Of Magnesia 30 Ml Oral.Susp) 30 ml PO DAILY PRN PRN Reason: Constipation Melatonin (Melatonin 3 Mg Tablet) 6 mg PO BEDTIME PRN PRN Reason: Insomnia Nitroglycerin (Nitroglycerin 0.4 Mg Tab.Subl) 0.4 mg SUBLINGUAL Q5MX3 PRN PRN Reason: chest pain Ondansetron HCl (Ondansetron Hcl 4 Mg/2 Ml Vial) 4 mg IVPUSH Q8H PRN PRN Reason: Nausea and Vomiting Sodium Chloride (0.9 % Sodium Chloride Flush 3 Ml Syringe) [facility] Home Medications Medication Instructions Recorded Confirmed Last Taken Type aspirin 81 mg tablet,delayed 81 mg PO DAILY 07/19/21 01/28/22 Unknown History release lisinopril 10 mg tablet 10 mg PO DAILY 07/19/21 01/28/22 Unknown History insulin glargine 100 unit/mL (3 unit subcut 01/28/22 01/28/22 Unknown History mL) subcutaneous pen (Lantus Solostar U-100 Insulin) Physical Exam Vital Signs: Vital Signs: Last Vital Signs Temp 97.6 F 06/03/22 11:32 Pulse 89 06/03/22 14:10 Resp 16 06/03/22 14:10 BP 140/93 H 06/03/22 14:10 Pulse Ox 95 06/03/22 14:10 O2 Del Method 06/03/22 14:10 BMI result Body Mass Index 31.6 Const: General: cooperative, comfortable, no acute distress, alert, awake and anxious Nutritional Appearance: overweight Orientation/consciousness: patient oriented x3 Limitations: no limitations HEENT: Head: Yes normocephalic and Yes atraumatic Neck: Neck: Yes trachea midline, Yes supple and Yes no JVD Resp: Effort & Inspection: normal respiratory effort Auscultation: clear to auscultation bilaterally Cardio: Jugular venous distension: no JVD Palpation: normal PMI Rate: regular rate Rhythm: regular rhythm Heart sounds: S1 normal heart sound present, S2 normal heart sound present, no click, no gallops, no murmurs and no rubs GI: Auscultation: normal bowel sounds Skin: General skin exam: no rashes or lesions noted Neuro: General: patient oriented x3 and no focal motor deficits Extrem: General: Yes no clubbing, cyanosis or edema Psych: Appearance: grossly normal Affect: Anxious affect present Objective Labs and Meds 06/03/22 11:51 06/03/22 11:51 Lab results: Laboratory Results - last 24 hr 06/03/22 06/03/22 06/03/22 11:51 11:51 11:51 WBC 11.4 H RBC 5.39 Hgb 16.4 Hct 47.2 MCV 87.6 MCH 30.4 MCHC 34.7 RDW 12.4 Plt Count 273 MPV 8.5 L Immature Gran % (Auto) 0.4 Neut % (Auto) 79.2 H Lymph % (Auto) 12.3 L [place] % (Auto) 6.1 Eos % (Auto) 1.3 Baso % (Auto) 0.7 Lymph # (Auto) 1.4 [place] # (Auto) 0.7 Eos # (Auto) 0.2 Baso # (Auto) 0.1 Abs Immat Gran (auto) 0.04 H Absolute Neuts (auto) 9.0 H Absolute Nucleated RBC 0.000 Nucleated RBC % (auto) 0.0 PT 11.3 INR 1.0 APTT 30.5 D-Dimer High Sensitivty Sodium 137 Potassium 4.5 Chloride 107 Carbon Dioxide 20 L Anion Gap 15 BUN 19 H Creatinine 1.07 Estim Creat Clear Calc 83.2 Estimated GFR > 60 Random Glucose 199 H Calcium 9.5 Total Bilirubin 0.6 AST 22 ALT 36 Alkaline Phosphatase 61 Troponin I High Sens B-Natriuretic Peptide Total Protein 6.8 Albumin 4.1 Influenza Type A (PCR) Influenza Type B (PCR) RSV RNA Qual (PCR) SARS-CoV-2 RNA (RT-PCR) 06/03/22 06/03/22 06/03/22 11:51 11:51 11:51 WBC RBC Hgb Hct MCV MCH MCHC RDW Plt Count MPV Immature Gran % (Auto) Neut % (Auto) Lymph % (Auto) [place] % (Auto) Eos % (Auto) Baso % (Auto) Lymph # (Auto) [place] # (Auto) Eos # (Auto) Baso # (Auto) Abs Immat Gran (auto) Absolute Neuts (auto) Absolute Nucleated RBC Nucleated RBC % (auto) PT INR APTT D-Dimer High Sensitivty Sodium Potassium Chloride Carbon Dioxide Anion Gap BUN Creatinine Estim Creat Clear Calc Estimated GFR Random Glucose Calcium Total Bilirubin AST ALT Alkaline Phosphatase Troponin I High Sens < 3.5 B-Natriuretic Peptide < 10 Total Protein Albumin Influenza Type A (PCR) NEGATIVE Influenza Type B (PCR) NEGATIVE RSV RNA Qual (PCR) NEGATIVE SARS-CoV-2 RNA (RT-PCR) NEGATIVE 06/03/22 06/03/22 14:05 14:05 WBC RBC Hgb Hct MCV MCH MCHC RDW Plt Count MPV Immature Gran % (Auto) Neut % (Auto) Lymph % (Auto) [place] % (Auto) Eos % (Auto) Baso % (Auto) Lymph # (Auto) [place] # (Auto) Eos # (Auto) Baso # (Auto) Abs Immat Gran (auto) Absolute Neuts (auto) Absolute Nucleated RBC Nucleated RBC % (auto) PT INR APTT D-Dimer High Sensitivty < 150 Sodium Potassium Chloride Carbon Dioxide Anion Gap BUN Creatinine Estim Creat Clear Calc Estimated GFR Random Glucose Calcium Total Bilirubin AST ALT Alkaline Phosphatase Troponin I High Sens 38.0 H D B-Natriuretic Peptide Total Protein Albumin Influenza Type A (PCR) Influenza Type B (PCR) RSV RNA Qual (PCR) SARS-CoV-2 RNA (RT-PCR) EKG shows no acute ischemic changes Imaging Radiologist's impression: Impressions Chest X-Ray 06/03/22 11:57 FINDINGS/IMPRESSION: The study is limited by portable technique and low lung volumes. There is no acute radiographic finding. No infiltrate, effusion, pneumothorax is appreciated as such. The cardiovascular structures, mediastinum, diaphragm, bones, and soft tissues appear unremarkable. Assessment and Plan (1) Acute coronary syndrome: Status: Acute Acute coronary syndrome in this middle-aged man with prior LAD and RCA stent about 4 years ago. Developed acute onset symptoms at rest. He said he has been very compliant with his medication. Says hemoglobin A1c is well controlled. No recent lipid panel when taking high-intensity statin therapy and aspirin therapy. Symptoms have now resolved. However his troponin has bumped up from less than 3.5-38. Findings consistent with acute coronary syndrome. I think he requires cardiac catheterization to further define his symptomatology related to possible acute plaque morphology change in the coronary arteries. This was discussed with him. We discussed the need for cardiac catheterization including risk, benefits, alternatives 2nd opinion. Continue IV heparin and aspirin. Avoid loading with the 2nd antiplatelet agent at this point time. Continue high-intensity statin therapy. Continue diabetes management. Would add metoprolol to his regimen. Advised him to participate in stress mitigation. If he requires repeat intervention would consider further aggressively treating his lipid panel with either ezetimibe or PCSK9 inhibitor therapy. Transfer to [facility] arrangements have been made. Thank you for allowing me to partake in his care Time Spent With Patient Time: Total time managing care of this patient today ____ minutes. Procedures Date of Service Date of Service: 06/03/22
--- NOTE | 2022-06-03 17:26 | PHA.MEDREC ---
MED REC COMPLETE, PATIENT HAS BEEN OFF ATORVASTATIN FOR AT LEAST SEVERAL MONTHS Pharmacy Consult ? Medication Reconciliation Pharmacy has completed the medication reconciliation.
--- NOTE | 2022-06-03 17:41 | PC.NURSE ---
heparin drip initiated with no issues, pt is resting comfortably on stretcher, reports no pain at this time
--- NOTE | 2022-06-03 18:00 | P.DS_ITS ---
DS: Providers Provider Date of Service: 06/03/22 Date of admission: 06/03/22 17:01 Primary care physician: Kenrick Gotti MD Consults: 06/03/22 16:01 Consult to Cardiology Stat Consulting Provider: Vamsi Linares Reason for consultation: NSTEMI Has provider been notified: Yes DS: Diagnosis Discharge Diagnosis (1) Acute coronary syndrome: Status: Acute DS: Summary Hospital Course Hospital Course: Chief Complaint: Chest pain 55-year-old gentleman with background history of coronary artery disease and had NSTEMI in April 2018 and had a stent and another NSTEMI and had mid RCA stent in june 2018 (by Dr. Myrick), HTN, insulin dependent diabetes, HLD. He comes in today with sudden onset of chest pain? while working on computer, 02/04 lasting about 45 minutes? and took nothing prior to comingin, pain better after nitro.? Associated with shortness of breath and anxiety, ECG show, troponin I has increased from <3.5 to 38. [facility] and cardi[facility] advised admission and possible transfer for cath a later time. Hospital course: Patient was just admitted within the hour with NSTEMI being treated with IV heparin and cardiology just saw him and recommend transfer to [facility] for cath. 1/NSTEMI--started on heparin, add BB and continue Lipitor, and ASA. Cardiology to assess for further management.? 2/HLD--continue Lipitor but increase to 80 3/HTn--continue Lisinopril and addition to added BB 4/ Diabetes- Lantus and SSI, Diabetic diet Transfer to [facility] for cath Time Spent with Patient Time attestation: Total time managing care of this patient today ____ minutes. Discharge coordination time: Greater than 30 minutes Quality: Safe Use of Opioids Does Pt have an Active Cancer Diagnosis on the Problem List?: No Quality: Stroke Does the patient have a stroke diagnosis?: No Physical Exam Vital Signs: Vital Signs: Last Vital Signs Temp 98.0 F 06/03/22 17:12 Pulse 89 06/03/22 17:12 Resp 18 06/03/22 17:12 BP 128/83 06/03/22 17:12 Pulse Ox 93 06/03/22 17:12 O2 Del Method 06/03/22 17:12 BMI result Body Mass Index 31.6 DS: Data Data Completed and Pending Labs on day of discharge: Laboratory Results - last 24 hr 06/03/22 06/03/22 06/03/22 11:51 11:51 11:51 WBC 11.4 H RBC 5.39 Hgb 16.4 Hct 47.2 MCV 87.6 MCH 30.4 MCHC 34.7 RDW 12.4 Plt Count 273 MPV 8.5 L Immature Gran % (Auto) 0.4 Neut % (Auto) 79.2 H Lymph % (Auto) 12.3 L [place] % (Auto) 6.1 Eos % (Auto) 1.3 Baso % (Auto) 0.7 Lymph # (Auto) 1.4 [place] # (Auto) 0.7 Eos # (Auto) 0.2 Baso # (Auto) 0.1 Abs Immat Gran (auto) 0.04 H Absolute Neuts (auto) 9.0 H Absolute Nucleated RBC 0.000 Nucleated RBC % (auto) 0.0 PT 11.3 INR 1.0 APTT 30.5 D-Dimer High Sensitivty Sodium 137 Potassium 4.5 Chloride 107 Carbon Dioxide 20 L Anion Gap 15 BUN 19 H Creatinine 1.07 Estim Creat Clear Calc 83.2 Estimated GFR > 60 Random Glucose 199 H Calcium 9.5 Total Bilirubin 0.6 AST 22 ALT 36 Alkaline Phosphatase 61 Troponin I High Sens B-Natriuretic Peptide Total Protein 6.8 Albumin 4.1 Influenza Type A (PCR) Influenza Type B (PCR) RSV RNA Qual (PCR) SARS-CoV-2 RNA (RT-PCR) 06/03/22 06/03/22 06/03/22 11:51 11:51 11:51 WBC RBC Hgb Hct MCV MCH MCHC RDW Plt Count MPV Immature Gran % (Auto) Neut % (Auto) Lymph % (Auto) [place] % (Auto) Eos % (Auto) Baso % (Auto) Lymph # (Auto) [place] # (Auto) Eos # (Auto) Baso # (Auto) Abs Immat Gran (auto) Absolute Neuts (auto) Absolute Nucleated RBC Nucleated RBC % (auto) PT INR APTT D-Dimer High Sensitivty Sodium Potassium Chloride Carbon Dioxide Anion Gap BUN Creatinine Estim Creat Clear Calc Estimated GFR Random Glucose Calcium Total Bilirubin AST ALT Alkaline Phosphatase Troponin I High Sens < 3.5 B-Natriuretic Peptide < 10 Total Protein Albumin Influenza Type A (PCR) NEGATIVE Influenza Type B (PCR) NEGATIVE RSV RNA Qual (PCR) NEGATIVE SARS-CoV-2 RNA (RT-PCR) NEGATIVE 06/03/22 06/03/22 14:05 14:05 WBC RBC Hgb Hct MCV MCH MCHC RDW Plt Count MPV Immature Gran % (Auto) Neut % (Auto) Lymph % (Auto) [place] % (Auto) Eos % (Auto) Baso % (Auto) Lymph # (Auto) [place] # (Auto) Eos # (Auto) Baso # (Auto) Abs Immat Gran (auto) Absolute Neuts (auto) Absolute Nucleated RBC Nucleated RBC % (auto) PT INR APTT D-Dimer High Sensitivty < 150 Sodium Potassium Chloride Carbon Dioxide Anion Gap BUN Creatinine Estim Creat Clear Calc Estimated GFR Random Glucose Calcium Total Bilirubin AST ALT Alkaline Phosphatase Troponin I High Sens 38.0 H D B-Natriuretic Peptide Total Protein Albumin Influenza Type A (PCR) Influenza Type B (PCR) RSV RNA Qual (PCR) SARS-CoV-2 RNA (RT-PCR) Discharge Plan Discharge Anticipated Discharge Date/Time: 06/03/22 17:56 Patient Disposition: Xfer [facility] Discharge Diagnosis: NSTEMI Referrals: Kenrick Gotti MD [Primary Care Provider] - 1 Week Discharge Medications: New heparin (porcine) 5,000 unit/mL Solution 3,700 unit IVPUSH PROTOCOL BOLUS PRN (Reason: 40 Unit/Kg - Heparin Protocol) Qty: 250 0RF heparin (porcine) 5,000 unit/mL Solution 7,300 unit IVPUSH PROTOCOL BOLUS PRN (Reason: 80 Unit/Kg - Heparin Protocol) Qty: 25 0RF heparin(porcine) in 0.45% NaCl 25,000 unit/250 mL Parenteral Solution 25,000 unit continuous IV infusion .Q0M Qty: 6000 0RF Rx Instructions: heparin metoprolol tartrate 25 mg tablet 12.5 mg PO BID Qty: 60 0RF Continued atorvastatin 40 mg tablet 40 mg PO DAILY Fundation PACK 1 packet PO DAILY lisinopril 10 mg tablet 10 mg PO DAILY aspirin 81 mg tablet,delayed release (DR/EC) 81 mg PO DAILY insulin glargine [Lantus Solostar U-100 Insulin] 100 unit/mL (3 mL) insulin pen 20 unit subcut DAILY Discharge Orders: Discharge Order (Routine); Ordered 06/03/22 Ordered By: Octavio Tyson Diet: Advance to usual diet Activity on Discharge: As tolerated Stand Alone Forms: Patient Portal Discharge page Care Plan Goals: work up for nstemi Health Concerns: NSTEMI Plan of Treatment: Transfer to [facility] for cath Assessment: as above
[2022-06-03 20:04] LABS: Glucose, Whole Blood 238 mg/dL (60-115)
--- NOTE | 2022-06-03 20:04 | PC.NURSE ---
Pt no longer getting admitted, waiting for bed at [facility]. Pt continues to remain chest pain free, has heparin drip running appropriate
[2022-06-03] MEDS: Acetaminophen 325 MG TABLET 650 MG PO (21:21)
--- NOTE | 2022-06-03 21:31 | PC.NURSE ---
pt remains in ED, awaiting bed at [facility]. Pt reports minor headache at this time, tylenol provided per MAR
[2022-06-03 23:21] LABS: PTT Heparin Drip 58.5 SEC (53-77.9)
[2022-06-03 23:43] VITALS: BP 101/64; PULSE 84; RESP 20; TEMP 37.1; O2SAT 93
--- NOTE | 2022-06-04 | ECG_ITS ---
Test Reason : chest pain Blood Pressure : / mmHG Vent. Rate : 085 BPM Atrial Rate : 085 BPM P-R Int : 154 ms QRS Dur : 084 ms QT Int : 358 ms P-R-T Axes : 048 002 034 degrees QTc Int : 426 ms Normal sinus rhythm Cannot rule out Inferior infarct , age undetermined Abnormal ECG When compared with ECG of 03-JUN-2022 15:02, No significant change was found Referred By: Debora Lemus Electronically Signed By:BALJIT FISHMAN MD
--- NOTE | 2022-06-04 00:28 | PC.NURSE ---
pt continues to rest comfortably on stretcher, reports no pain at this time, no change necessary to Heparin drip as pTT is in range. Awaiting bed to open at [facility].
[2022-06-04 03:08] VITALS: BP 121/84; PULSE 83; RESP 16; TEMP 37.1; O2SAT 96
[2022-06-04 04:45] LABS: Hematocrit 44.5 % (42.0-52.0); Hemoglobin 15.2 g/dl (14.0-18.0); Mean Corpuscular HGB Conc 34.2 g/dl (31.0-36.0); Mean Corpuscular Hemoglobin 29.7 pg (27.0-33.0); Mean Corpuscular Volume 86.9 fL (80.0-98.0); Mean Platelet Volume 8.5 fL (9.4-12.4); Platelet Count 223 X10*3/uL (160-400); Red Blood Count 5.12 X10*6/uL (4.60-5.80); Red Cell Distribution Width 12.5 % (11.0-16.0); White Blood Count 10.9 X10*3/uL (4.8-10.8)
[2022-06-04 04:54] LABS: Prothrombin Time 11.5 SEC (10.0-13.1)
[2022-06-04 04:57] LABS: PTT Heparin Drip 53.3 SEC (53-77.9)
[2022-06-04 07:56] VITALS: BP 107/58; PULSE 69; RESP 20; TEMP 37.1; O2SAT 95
[2022-06-04] MEDS: Insulin Glargine,Hum.rec.anlog 100 UNIT/ML 10 ML VIAL 20 UNIT SUBCUT (08:40)
[2022-06-04] MEDS: Acetaminophen 325 MG TABLET 650 MG PO (08:48)
--- NOTE | 2022-06-04 09:54 | PM.PNCARD ---
Subjective Subjective Date of Service: 06/04/22 Principal diagnosis: Acute coronary syndrome Interval history: Patient did not sleep well overnight. Does not have any clear shock chest pain but has some twinge in his chest. No repeat troponins were done. He is currently on IV heparin. Scheduled to go to [facility] today Review of Systems Review of Systems Yes all other systems are reviewed and are negative Physical Exam Vital Signs: Last Vital Signs Temp 98.7 F 06/04/22 07:56 Pulse 69 06/04/22 07:56 Resp 20 06/04/22 07:56 BP 107/58 L 06/04/22 07:56 Pulse Ox 95 06/04/22 07:56 O2 Del Method 06/04/22 07:56 BMI result Body Mass Index 31.6 Const General: cooperative, comfortable, no acute distress, alert, awake and anxious Nutritional Appearance: overweight Orientation/consciousness: patient oriented x3 Limitations: no limitations Neck Neck: Yes trachea midline, Yes supple and Yes no JVD Resp Effort & Inspection: normal respiratory effort Auscultation: clear to auscultation bilaterally Cardio Jugular venous distension: no JVD Palpation: normal PMI Rate: regular rate Rhythm: regular rhythm Heart sounds: S1 normal heart sound present, S2 normal heart sound present, no click, no gallops, no murmurs and no rubs GI Auscultation: normal bowel sounds Skin General skin exam: no rashes or lesions noted Neuro General: patient oriented x3 and no focal motor deficits Extrem General: Yes no clubbing, cyanosis or edema Psych Appearance: grossly normal Affect: Anxious affect present Objective Labs and Meds 06/04/22 04:29 06/03/22 11:51 Lab results: Laboratory Results - last 24 hr 06/03/22 06/03/22 06/03/22 11:51 11:51 11:51 WBC 11.4 H RBC 5.39 Hgb 16.4 Hct 47.2 MCV 87.6 MCH 30.4 MCHC 34.7 RDW 12.4 Plt Count 273 MPV 8.5 L Immature Gran % (Auto) 0.4 Neut % (Auto) 79.2 H Lymph % (Auto) 12.3 L [place] % (Auto) 6.1 Eos % (Auto) 1.3 Baso % (Auto) 0.7 Lymph # (Auto) 1.4 [place] # (Auto) 0.7 Eos # (Auto) 0.2 Baso # (Auto) 0.1 Abs Immat Gran (auto) 0.04 H Absolute Neuts (auto) 9.0 H Absolute Nucleated RBC 0.000 Nucleated RBC % (auto) 0.0 PT 11.3 INR 1.0 APTT 30.5 aPTT Heparin Protocol D-Dimer High Sensitivty Sodium 137 Potassium 4.5 Chloride 107 Carbon Dioxide 20 L Anion Gap 15 BUN 19 H Creatinine 1.07 Estim Creat Clear Calc 83.2 Estimated GFR > 60 POC Glucose Random Glucose 199 H Calcium 9.5 Total Bilirubin 0.6 AST 22 ALT 36 Alkaline Phosphatase 61 Troponin I High Sens B-Natriuretic Peptide Total Protein 6.8 Albumin 4.1 Influenza Type A (PCR) Influenza Type B (PCR) RSV RNA Qual (PCR) SARS-CoV-2 RNA (RT-PCR) 06/03/22 06/03/22 06/03/22 11:51 11:51 11:51 WBC RBC Hgb Hct MCV MCH MCHC RDW Plt Count MPV Immature Gran % (Auto) Neut % (Auto) Lymph % (Auto) [place] % (Auto) Eos % (Auto) Baso % (Auto) Lymph # (Auto) [place] # (Auto) Eos # (Auto) Baso # (Auto) Abs Immat Gran (auto) Absolute Neuts (auto) Absolute Nucleated RBC Nucleated RBC % (auto) PT INR APTT aPTT Heparin Protocol D-Dimer High Sensitivty Sodium Potassium Chloride Carbon Dioxide Anion Gap BUN Creatinine Estim Creat Clear Calc Estimated GFR POC Glucose Random Glucose Calcium Total Bilirubin AST ALT Alkaline Phosphatase Troponin I High Sens < 3.5 B-Natriuretic Peptide < 10 Total Protein Albumin Influenza Type A (PCR) NEGATIVE Influenza Type B (PCR) NEGATIVE RSV RNA Qual (PCR) NEGATIVE SARS-CoV-2 RNA (RT-PCR) NEGATIVE 06/03/22 06/03/22 06/03/22 14:05 14:05 20:00 WBC RBC Hgb Hct MCV MCH MCHC RDW Plt Count MPV Immature Gran % (Auto) Neut % (Auto) Lymph % (Auto) [place] % (Auto) Eos % (Auto) Baso % (Auto) Lymph # (Auto) [place] # (Auto) Eos # (Auto) Baso # (Auto) Abs Immat Gran (auto) Absolute Neuts (auto) Absolute Nucleated RBC Nucleated RBC % (auto) PT INR APTT aPTT Heparin Protocol D-Dimer High Sensitivty < 150 Sodium Potassium Chloride Carbon Dioxide Anion Gap BUN Creatinine Estim Creat Clear Calc Estimated GFR POC Glucose 238 H Random Glucose Calcium Total Bilirubin AST ALT Alkaline Phosphatase Troponin I High Sens 38.0 H D B-Natriuretic Peptide Total Protein Albumin Influenza Type A (PCR) Influenza Type B (PCR) RSV RNA Qual (PCR) SARS-CoV-2 RNA (RT-PCR) 06/03/22 06/04/22 06/04/22 22:19 04:29 04:29 WBC 10.9 H RBC 5.12 Hgb 15.2 Hct 44.5 MCV 86.9 MCH 29.7 MCHC 34.2 RDW 12.5 Plt Count 223 MPV 8.5 L Immature Gran % (Auto) Neut % (Auto) Lymph % (Auto) [place] % (Auto) Eos % (Auto) Baso % (Auto) Lymph # (Auto) [place] # (Auto) Eos # (Auto) Baso # (Auto) Abs Immat Gran (auto) Absolute Neuts (auto) Absolute Nucleated RBC 0.000 Nucleated RBC % (auto) 0.0 PT 11.5 INR 1.0 APTT aPTT Heparin Protocol 58.5 D-Dimer High Sensitivty Sodium Potassium Chloride Carbon Dioxide Anion Gap BUN Creatinine Estim Creat Clear Calc Estimated GFR POC Glucose Random Glucose Calcium Total Bilirubin AST ALT Alkaline Phosphatase Troponin I High Sens B-Natriuretic Peptide Total Protein Albumin Influenza Type A (PCR) Influenza Type B (PCR) RSV RNA Qual (PCR) SARS-CoV-2 RNA (RT-PCR) 06/04/22 06/04/22 04:29 09:05 WBC RBC Hgb Hct MCV MCH MCHC RDW Plt Count MPV Immature Gran % (Auto) Neut % (Auto) Lymph % (Auto) [place] % (Auto) Eos % (Auto) Baso % (Auto) Lymph # (Auto) [place] # (Auto) Eos # (Auto) Baso # (Auto) Abs Immat Gran (auto) Absolute Neuts (auto) Absolute Nucleated RBC Nucleated RBC % (auto) PT INR APTT aPTT Heparin Protocol 53.3 D-Dimer High Sensitivty Sodium Potassium Chloride Carbon Dioxide Anion Gap BUN Creatinine Estim Creat Clear Calc Estimated GFR POC Glucose Random Glucose Calcium Total Bilirubin AST ALT Alkaline Phosphatase Troponin I High Sens 941.0 H* D B-Natriuretic Peptide Total Protein Albumin Influenza Type A (PCR) Influenza Type B (PCR) RSV RNA Qual (PCR) SARS-CoV-2 RNA (RT-PCR) Imaging Radiologist's impression: Impressions Chest X-Ray 06/03/22 11:57 FINDINGS/IMPRESSION: The study is limited by portable technique and low lung volumes. There is no acute radiographic finding. No infiltrate, effusion, pneumothorax is appreciated as such. The cardiovascular structures, mediastinum, diaphragm, bones, and soft tissues appear unremarkable. Progress Note: A&P Assessment and plan (1) Acute coronary syndrome: Status: Acute Assessment and Plan: Acute coronary syndrome suggestive of unstable angina this middle-aged man with prior history of LAD and RCA stenting with similar says prolonged symptoms of chest pain with delta troponin from less than 3.5238. Advise repeat troponin. Continue IV heparin today. Plan for transfer to [facility] today for cardiac catheterization hopefully later today. Continue high-intensity statin therapy as well as aspirin therapy. Avoid using dual antiplatelet agent at this point time pending coronary anatomy. Use low-dose metoprolol. If he truly has significant coronary artery disease again requiring intervention will require further intensification of lipid management. Will follow as outpatient. Thank you for allowing us to partake in his care Time Spent With Patient Time: Total time managing care of this patient today ____ minutes. Progress Note: Quality Stroke Does the patient have a stroke diagnosis?: No Procedures Date of Service Date of Service: 06/04/22
[2022-06-04 11:04] VITALS: BP 110/63; PULSE 84; RESP 20; TEMP 37.2; O2SAT 97
[2022-06-04 11:11] VITALS: BP 110/63; PULSE 86
[2022-06-04] MEDS: Nitroglycerin 0.4 MG TAB.SUBL SUBLINGUAL (11:11)
--- NOTE | 2022-06-04 12:14 | PC.NURSE ---
at 1105 pt c/o chest pain 2 and described as a punch in his chest. MD notified. Nitro sublingual given. pain resolved. EKG stat performed- NSR
== END 2022-06-04 12:05 | disposition short-term general hospital (02) | DRG 190 ==
LOC: HO.ED 15:53 → HO.EDOVER 17:05 → HO.IMC 06-04 02:10
PROVIDERS: Physician Assistant; Admitting Provider Internal Medicine; Emergency Provider Emergency Medicine; PCP Internal Medicine; Visit Provider Internal Medicine
DX: I21.4 Non-ST elevation (NSTEMI) myocardial infarction (principal); E11.9 Type 2 diabetes mellitus without complications; I10 Essential (primary) hypertension; I25.10 Atherosclerotic heart disease of native coronary artery without angina pectoris; E78.5 Hyperlipidemia, unspecified; Z95.5 Presence of coronary angioplasty implant and graft; Z20.822 Contact with and (suspected) exposure to COVID-19; Z79.82 Long term (current) use of aspirin; Z79.4 Long term (current) use of insulin; Z79.899 Other long term (current) drug therapy
CPT/HCPCS: 0241U; 36415; 71045; 80053; 82947; 83880; 84484; 85025; 85027; 85379; 85610; 85730; 93005; 99222; 99285; J1643

== ENCOUNTER 2022-06-11 09:43 | Emergency (ER) | payer BC, SELFPAY ==
--- NOTE | ~2022-06-11 | XR_ITS ---
EXAMINATION: XR CHEST CLINICAL INFORMATION: Pain COMPARISON: 06/03/2022 TECHNIQUE: Frontal view of the chest was obtained. FINDINGS: Lungs are mildly hypoinflated and clear. No pneumothorax or pleural effusion. Cardiac silhouette is normal in size. The pulmonary vascular pattern is normal. The visualized bones are intact. XR/XR chest 1V IMPRESSION: No acute pulmonary disease.
--- NOTE | 2022-06-11 09:44 | ECG_ITS ---
Test Reason : chest pain Blood Pressure : / mmHG Vent. Rate : 065 BPM Atrial Rate : 065 BPM P-R Int : 178 ms QRS Dur : 086 ms QT Int : 392 ms P-R-T Axes : 059 011 050 degrees QTc Int : 407 ms Normal sinus rhythm Normal ECG When compared with ECG of 04-JUN-2022 11:24, Minimal criteria for Inferior infarct are no longer Present Referred By: Generic ED Physician Electronically Signed By:Clifford Myrick
[2022-06-11 10:06] VITALS: BP 153/96; PULSE 70; RESP 16; O2SAT 95; BMI 30.4
--- NOTE | 2022-06-11 10:27 | ED.CHESTPAIN ---
HPI - Chest Pain General Chief Complaint: Chest Pain Stated Complaint: Chest pressure Time Seen by Provider: 06/11/22 09:51 Source: patient and old records reviewed Mode of arrival: ambulatory Limitations: no limitations History of Present Illness HPI narrative: 56 yo male with hx of HTN, HLD, ACS s/p NSTEMI last week with stents x 2 placed at [facility] left CCU on Friday - he is on aspirin and brilinta has had some twinges of pain but today felt 2/10 chest pressure and shortness of breath. No fevers or cough. He did not take his aspirin or brilinta because he was tired. He is upset he is here. He has been taking his medications otherwise MD complaint: chest pain Pertinent past history: coronary artery disease Onset (ago): hour(s) (few) Timing of current episode: episodic Prior episodes: Yes Onset: during rest Pain location: substernal Pain radiation: none Severity: mild Quality: other (pressure) Relieving factors: nothing Exacerbating factors: nothing Context: recent illness Associated symptoms: dyspnea Treatment prior to arrival: none Related Data Home Medications Medication Instructions Recorded Confirmed aspirin 81 mg tablet,delayed 81 mg PO DAILY 07/19/21 06/03/22 release lisinopril 10 mg tablet 10 mg PO DAILY 07/19/21 06/03/22 insulin glargine 100 unit/mL (3 20 unit subcut DAILY 01/28/22 06/03/22 mL) subcutaneous pen (Lantus Solostar U-100 Insulin) [employer]ant Magic PACK 1 packet PO DAILY 06/03/22 06/03/22 atorvastatin 40 mg tablet 40 mg PO DAILY 06/03/22 06/03/22 Previous Rx's Medication Instructions Recorded heparin (porcine) 25,000 unit/250 25,000 unit (250 mL) continuous IV 06/03/22 mL in 0.45 % sodium chloride IV infusion .Q0M #6,000 mL soln heparin (porcine) 5,000 unit/mL 3,700 unit (0.74 mL) IVPUSH 06/03/22 injection solution PROTOCOL BOLUS PRN 40 Unit/Kg - Heparin Protocol #250 mL heparin (porcine) 5,000 unit/mL 7,300 unit (1.46 mL) IVPUSH 06/03/22 injection solution PROTOCOL BOLUS PRN 80 Unit/Kg - Heparin Protocol #25 mL metoprolol tartrate 25 mg tablet 12.5 mg PO BID #60 tabs 06/03/22 ezetimibe 10 mg tablet (Zetia) 10 mg PO DAILY #60 tabs 06/07/22 lorazepam 0.5 mg tablet (Ativan) 0.5 mg PO BID PRN anxiety #10 tabs 06/11/22 Allergies Allergy/AdvReac Type Severity Reaction Status Date / Time No Known Allergies Allergy Verified 01/28/22 14:24 Review of Systems Review of Systems: Constitutional : No Weight loss, No Fever, No Chills ENT/Mouth : No sore throat, No Rhinorrhea Eyes: No Eye Pain, No Swelling Cardiovascular : pos Chest Pain, pos SOB, no Dyspnea on Exertion, No Orthopnea, No Edema, No Palpitations Respiratory : No Cough, No Sputum Gastrointestinal : no Nausea, No Vomiting, No Diarrhea, No abdominal Pain, No Hematochezia, No Melena Genitourinary : No Dysuria, No Urinary Frequency Musculoskeletal : No joint pain, No Myalgias, No Joint Swelling Skin : No Skin Lesions, No rash Neuro : No Weakness, No Numbness, No Dizziness, No Headache Psych : No Anxiety/Panic, No Depression Heme/Lymph: No Bruising, No Lymphadenopathy Endocrine : No Polyuria, No Polydipsia All other systems reviewed and are negative [facility] Past Medical History Attestation statement: The following information was validated with the patient. Medical History CAD (coronary artery disease) HLD (hyperlipidemia) HTN (hypertension) Surgical History History of appendectomy History of cardiac cath History of neck surgery History of umbilical hernia repair Family History Family History Mother HTN (hypertension) Father HTN (hypertension) Social History Social History Household Members: Spouse Housing: House Do you presently have visiting nurse or other home services: No Alcohol intake: never Patient Tobacco Use Status: Never used Tobacco Advance Directives: Yes Advance Directives Information Provided: Yes Advance Directives on File: No Physical Exam Vital Signs: Vital Signs: Last Vital Signs Pulse 74 06/11/22 12:48 Resp 12 06/11/22 12:48 BP 123/77 06/11/22 12:48 Pulse Ox 92 06/11/22 12:48 O2 Del Method 06/11/22 12:48 BMI result Body Mass Index 30.4 Appearance: Alert. Oriented X3. No acute distress. anxious Eyes: Pupils equal, round and reactive to light. ENT: Pharynx normal. Neck: Normal inspection. Neck supple. CVS: Normal heart rate and rhythm. Pulses normal. Respiratory: No respiratory distress. Breath sounds normal. Abdomen: Soft and non-tender. Skin: Skin warm and dry. Normal skin color. Normal skin turgor. Extremities: No lower extremity edema. No calf ttp Neuro: Oriented X 3. No motor deficit. No sensory deficit. Course Course Course Narrative: trop decreased stable for DC reviewed with cardiology Medications Administered Discontinued Medications Generic Name Dose Route Start Last Admin Trade Name Freq PRN Reason Stop Dose Admin Aspirin 81 mg 06/11/22 11:05 06/11/22 11:16 Aspirin 81 Mg Tab.Chew PO 06/11/22 11:06 81 mg ONCE ONE Administration Lorazepam 1 mg 06/11/22 11:06 06/11/22 11:17 Lorazepam 1 Mg Tablet PO 06/11/22 11:07 1 mg ONCE ONE Administration Nitroglycerin 0.4 mg 06/11/22 10:42 06/11/22 10:56 Nitroglycerin 0.4 Mg Tab.Subl SUBLINGUAL 06/11/22 10:43 0.4 mg ONCE ONE Administration Ticagrelor 90 mg 06/11/22 11:05 06/11/22 11:16 Ticagrelor 90 Mg Tablet PO 06/11/22 11:06 90 mg ONCE ONE Administration Procedures Procedure Narrative Procedure Narrative: bedside ECHO apical subxiphoid parasternal views no pericardial effusion seen Medical Decision Making Medical Decision Making MDM Narrative: 56 yo male with hx of HTN, HLD, ACS s/p NSTEMI last week with stents x 2 placed at [facility] left CCU on Friday here with c/o 2/10 chest pressure and dyspnea at this time will need labs, troponin x 2, CXR for pneumonia, ECHO for effusion. He likely will have troponins post NSTEMI will need a trend. He is not hypoxic, tachycardic no signs of edema doubt CHF or PE/DVT. Will notify his micro paleontologist, I am ordered his PO aspirin and brilinta that he missed this AM. Differential Diagnosis Differential Diagnoses: The differential diagnosis associated with the presentation includes ACS, chest wall pain, MSK, anxiety, pericardial effusion Admission/Observation Consideration of admission/observation: Escalation of care including admission/observation considered Consult Healthcare Provider Management of the patient was discussed with: [employer] (Dr. Myrick aware will follow up and see patient - recommends anxiolytic at this time) Lab Data MDM Lab Attestation statement: I reviewed the patient's lab results. 06/11/22 10:19 06/11/22 10:19 Labs: Lab Results 06/11/22 06/11/22 06/11/22 Range/Units 10:19 10:19 10:19 WBC 7.7 (4.8-10.8) X10*3/uL RBC 5.33 (4.60-5.80) X10*6/uL Hgb 15.6 (14.0-18.0) g/dl Hct 45.9 (42.0-52.0) % MCV 86.1 (80.0-98.0) fL MCH 29.3 (27.0-33.0) pg MCHC 34.0 (31.0-36.0) g/dl RDW 12.4 (11.0-16.0) % Plt Count 257 (160-400) X10*3/uL MPV 8.2 L (9.4-12.4) fL Immature Gran % (Auto) 0.4 (0.0-0.4) % Neut % (Auto) 69.4 (45-73) % Lymph % (Auto) 17.4 L (20-40) % [place] % (Auto) 8.4 (2-11) % Eos % (Auto) 3.9 (0-4) % Baso % (Auto) 0.5 (0-2) % Lymph # (Auto) 1.3 (1.2-4.9) X10*3/uL [place] # (Auto) 0.6 (0.1-1.2) X10*3/uL Eos # (Auto) 0.3 (0.0-0.4) X10*3/uL Baso # (Auto) 0.0 (0.0-0.2) X10*3/uL Abs Immat Gran (auto) 0.03 (0.00-0.03) X10*3/uL Absolute Neuts (auto) 5.3 (2.0-8.3) x10*3/uL Absolute Nucleated RBC 0.000 (0.0-0.012) X10*3/uL Nucleated RBC % (auto) 0.0 (0.0-0.2) /100WBC PT (10.0-13.1) SEC INR (0.9-1.1) Sodium 140 (135-145) mmol/L Potassium 4.2 (3.3-5.1) mmol/L Chloride 106 (96-108) mmol/L Carbon Dioxide 22 (22-29) mmol/L Anion Gap 16 (12-20) BUN 17 H (9-16) mg/dL Creatinine 1.02 (0.5-1.4) mg/dL Estim Creat Clear Calc 83.0 Estimated GFR > 60 Random Glucose 139 H (60-115) mg/dL Calcium 9.2 (8.4-10.2) mg/dL Magnesium 2.0 (1.6-2.6) mg/dL Total Bilirubin 1.0 (0.0-1.0) mg/dL Direct Bilirubin 0.3 (0.0-0.5) mg/dL AST 22 (5-37) U/L ALT 30 (0-40) U/L Alkaline Phosphatase 66 (39-117) U/L Troponin I High Sens 274.3 H* D (<3.5-35.0) ng/L Total Protein 6.5 (6.5-8.0) g/dL Albumin 3.8 (3.5-5.0) g/dL COVID-19 ([place]) (Negative) COVID-19 Clin Com 06/11/22 06/11/22 06/11/22 Range/Units 10:38 10:38 11:16 WBC (4.8-10.8) X10*3/uL RBC (4.60-5.80) X10*6/uL Hgb (14.0-18.0) g/dl Hct (42.0-52.0) % MCV (80.0-98.0) fL MCH (27.0-33.0) pg MCHC (31.0-36.0) g/dl RDW (11.0-16.0) % Plt Count (160-400) X10*3/uL MPV (9.4-12.4) fL Immature Gran % (Auto) (0.0-0.4) % Neut % (Auto) (45-73) % Lymph % (Auto) (20-40) % [place] % (Auto) (2-11) % Eos % (Auto) (0-4) % Baso % (Auto) (0-2) % Lymph # (Auto) (1.2-4.9) X10*3/uL [place] # (Auto) (0.1-1.2) X10*3/uL Eos # (Auto) (0.0-0.4) X10*3/uL Baso # (Auto) (0.0-0.2) X10*3/uL Abs Immat Gran (auto) (0.00-0.03) X10*3/uL Absolute Neuts (auto) (2.0-8.3) x10*3/uL Absolute Nucleated RBC (0.0-0.012) X10*3/uL Nucleated RBC % (auto) (0.0-0.2) /100WBC PT 12.5 (10.0-13.1) SEC INR 1.1 (0.9-1.1) Sodium (135-145) mmol/L Potassium (3.3-5.1) mmol/L Chloride (96-108) mmol/L Carbon Dioxide (22-29) mmol/L Anion Gap (12-20) BUN (9-16) mg/dL Creatinine (0.5-1.4) mg/dL Estim Creat Clear Calc Estimated GFR Random Glucose (60-115) mg/dL Calcium (8.4-10.2) mg/dL Magnesium Cancelled (1.6-2.6) mg/dL Total Bilirubin Cancelled (0.0-1.0) mg/dL Direct Bilirubin Cancelled (0.0-0.5) mg/dL AST Cancelled (5-37) U/L ALT Cancelled (0-40) U/L Alkaline Phosphatase Cancelled (39-117) U/L Troponin I High Sens (<3.5-35.0) ng/L Total Protein Cancelled (6.5-8.0) g/dL Albumin Cancelled (3.5-5.0) g/dL COVID-19 ([place]) Negative (Negative) COVID-19 Clin Com See Note 06/11/22 Range/Units 12:40 WBC (4.8-10.8) X10*3/uL RBC (4.60-5.80) X10*6/uL Hgb (14.0-18.0) g/dl Hct (42.0-52.0) % MCV (80.0-98.0) fL MCH (27.0-33.0) pg MCHC (31.0-36.0) g/dl RDW (11.0-16.0) % Plt Count (160-400) X10*3/uL MPV (9.4-12.4) fL Immature Gran % (Auto) (0.0-0.4) % Neut % (Auto) (45-73) % Lymph % (Auto) (20-40) % [place] % (Auto) (2-11) % Eos % (Auto) (0-4) % Baso % (Auto) (0-2) % Lymph # (Auto) (1.2-4.9) X10*3/uL [place] # (Auto) (0.1-1.2) X10*3/uL Eos # (Auto) (0.0-0.4) X10*3/uL Baso # (Auto) (0.0-0.2) X10*3/uL Abs Immat Gran (auto) (0.00-0.03) X10*3/uL Absolute Neuts (auto) (2.0-8.3) x10*3/uL Absolute Nucleated RBC (0.0-0.012) X10*3/uL Nucleated RBC % (auto) (0.0-0.2) /100WBC PT (10.0-13.1) SEC INR (0.9-1.1) Sodium (135-145) mmol/L Potassium (3.3-5.1) mmol/L Chloride (96-108) mmol/L Carbon Dioxide (22-29) mmol/L Anion Gap (12-20) BUN (9-16) mg/dL Creatinine (0.5-1.4) mg/dL Estim Creat Clear Calc Estimated GFR Random Glucose (60-115) mg/dL Calcium (8.4-10.2) mg/dL Magnesium (1.6-2.6) mg/dL Total Bilirubin (0.0-1.0) mg/dL Direct Bilirubin (0.0-0.5) mg/dL AST (5-37) U/L ALT (0-40) U/L Alkaline Phosphatase (39-117) U/L Troponin I High Sens 238.8 H* (<3.5-35.0) ng/L Total Protein (6.5-8.0) g/dL Albumin (3.5-5.0) g/dL COVID-19 ([place]) (Negative) COVID-19 Clin Com Independent Interpretation I performed an independent interpretation of an: EKG and Plain X-Ray Interpretation: Rate: 65 Rhythm: NSR [place]: normal Normal P waves. Normal GAEL. Normal QRS complex. ST T wave : normal no LUCIO qTC: normal prior studies: no acute ischemia The study has been interpreted contemporaneously by me. . Radiology Impression Discussion of test interpretation with radiology: I have reviewed the radiologist's reading. Independent Historian Clinical information obtained from an independent historian. History obtained from or confirmed by: Spouse External Record Review External record reviewed: Inpatient record and Outpatient record Prescription Management I considered prescription management with: Other Discharge Plan Discharge Clinical Impression: Chest pain Qualifiers: Chest pain type: unspecified Qualified Code(s): R07.9 - Chest pain, unspecified Patient Disposition: Home, Self-Care Instructions: Chest Pain (ED) Additional Instructions: return to ED for any worsening symptoms or concerns you were given your aspirin and brilinta in the ED today please do not take again follow up with your micro paleontologist as scheduled talk to them as well about cardiac rehab to get your strength up. Prescriptions: New lorazepam [Ativan] 0.5 mg tablet 0.5 mg PO BID PRN (Reason: anxiety) Qty: 10 0RF No Action ezetimibe [Zetia] 10 mg tablet 10 mg PO DAILY Qty: 60 4RF atorvastatin 40 mg tablet 40 mg PO DAILY [employer] PACK 1 packet PO DAILY heparin (porcine) 5,000 unit/mL Solution 3,700 unit IVPUSH PROTOCOL BOLUS PRN (Reason: 40 Unit/Kg - Heparin Protocol) Qty: 250 0RF heparin (porcine) 5,000 unit/mL Solution 7,300 unit IVPUSH PROTOCOL BOLUS PRN (Reason: 80 Unit/Kg - Heparin Protocol) Qty: 25 0RF heparin(porcine) in 0.45% NaCl 25,000 unit/250 mL Parenteral Solution 25,000 unit continuous IV infusion .Q0M Qty: 6000 0RF Rx Instructions: heparin metoprolol tartrate 25 mg tablet 12.5 mg PO BID Qty: 60 0RF lisinopril 10 mg tablet 10 mg PO DAILY aspirin 81 mg tablet,delayed release (DR/EC) 81 mg PO DAILY insulin glargine [Lantus Solostar U-100 Insulin] 100 unit/mL (3 mL) insulin pen 20 unit subcut DAILY Interventions: ED Discharge Assessment Last Done: 06/11/22 14:25 Discharge Date/Time: 06/11/22 14:25
[2022-06-11 10:42] LABS: MANUAL DIFF FLAG NO
[2022-06-11 10:45] LABS: Basophils Percent Auto 0.5 % (0-2); Eosinophils Absolute Auto 0.3 X10*3/uL (0.0-0.4); Eosinophils Percent Auto 3.9 % (0-4); Hematocrit 45.9 % (42.0-52.0); Hemoglobin 15.6 g/dl (14.0-18.0); Imm Gran Abs Auto 0.03 X10*3/uL (0.00-0.03); Imm Gran Pct Auto 0.4 % (0.0-0.4); Lymphocytes Absolute Auto 1.3 X10*3/uL (1.2-4.9); Lymphocytes Percent Auto 17.4 % (20-40); Mean Corpuscular Hemoglobin 29.3 pg (27.0-33.0); Mean Corpuscular Volume 86.1 fL (80.0-98.0); Mean Platelet Volume 8.2 fL (9.4-12.4); Monocytes Absolute Auto 0.6 X10*3/uL (0.1-1.2); Monocytes Percent Auto 8.4 % (2-11); Neutrophils Absolute Auto 5.3 x10*3/uL (2.0-8.3); Neutrophils Percent Auto 69.4 % (45-73); Platelet Count 257 X10*3/uL (160-400); Red Blood Count 5.33 X10*6/uL (4.60-5.80); Red Cell Distribution Width 12.4 % (11.0-16.0); White Blood Count 7.7 X10*3/uL (4.8-10.8)
[2022-06-11] MEDS: Nitroglycerin 0.4 MG TAB.SUBL SUBLINGUAL (10:56)
[2022-06-11 10:59] LABS: Anion Gap 16 (12-20); Blood Urea Nitrogen 17 mg/dL (9-16); Calcium 9.2 mg/dL (8.4-10.2); Carbon Dioxide 22 mmol/L (22-29); Chloride 106 mmol/L (96-108); Estimated Glomerular Filt Rate > 60; Glucose Random 139 mg/dL (60-115); Potassium 4.2 mmol/L (3.3-5.1); Sodium 140 mmol/L (135-145)
[2022-06-11 11:09] LABS: COVID-19 Test Negative (Negative); IDNOW Serial# 16C4AD1C
[2022-06-11 11:13] LABS: Alanine Aminotransferase 30 U/L (0-40); Albumin Level 3.8 g/dL (3.5-5.0); Alkaline Phosphatase 66 U/L (39-117); Aspartate Amino Transferase 22 U/L (5-37); Bilirubin Direct 0.3 mg/dL (0.0-0.5); Total Protein 6.5 g/dL (6.5-8.0); Troponin-I High Sensitivity 274.3 ng/L (<3.5-35.0)
[2022-06-11] MEDS: Aspirin 81 MG TAB.CHEW PO (11:16)
[2022-06-11] MEDS: Ticagrelor 90 MG TABLET PO (11:16)
[2022-06-11] MEDS: LORazepam 1 MG TABLET PO (11:17)
[2022-06-11 11:28] LABS: INTERNATIONAL NORM RATIO 1.1 (0.9-1.1); Prothrombin Time 12.5 SEC (10.0-13.1)
[2022-06-11 12:48] VITALS: BP 123/77; PULSE 74; RESP 12; O2SAT 92
[2022-06-11 13:22] LABS: Troponin-I High Sensitivity 238.8 ng/L (<3.5-35.0)
== END 2022-06-11 14:25 | disposition home or self-care (01) ==
PROVIDERS: Emergency Provider Emergency Medicine; PCP Internal Medicine
DX: R07.89 Other chest pain (principal); R06.02 Shortness of breath; Z20.822 Contact with and (suspected) exposure to COVID-19; Z20.828 Contact with and (suspected) exposure to other viral communicable diseases; Z79.899 Other long term (current) drug therapy
CPT/HCPCS: 36415; 71045; 80048; 80076; 83735; 84484; 85025; 85610; 87635; 93005; 99284

== ENCOUNTER → 2022-07-01 12:21 | Outpatient (BNVA) | payer BC, SELFPAY | PROVIDERS: PCP Internal Medicine; Referring Provider Internal Medicine; Visit Provider Internal Medicine Cardiovascular Disease | DX: Z13.89 Encounter for screening for other disorder (principal) ==

== ENCOUNTER 2022-07-11 19:22 | Emergency (ER) | payer BC, SELFPAY ==
--- NOTE | ~2022-07-11 | XR_ITS ---
EXAMINATION: XR CHEST CLINICAL INFORMATION: Chest pain COMPARISON: None available. TECHNIQUE: Frontal view of the chest was obtained. FINDINGS: The lungs are well-expanded and clear. The heart size and pulmonary vascularity is normal. No gross bony abnormality seen. XR/XR chest 1V IMPRESSION: Unremarkable chest exam.
--- NOTE | 2022-07-11 19:24 | ECG_ITS ---
Test Reason : CHEST PAIN Blood Pressure : / mmHG Vent. Rate : 106 BPM Atrial Rate : 106 BPM P-R Int : 148 ms QRS Dur : 086 ms QT Int : 340 ms P-R-T Axes : 032 -01 082 degrees QTc Int : 451 ms Sinus tachycardia Nonspecific T wave abnormality Abnormal ECG When compared with ECG of 11-JUN-2022 09:49, Vent. rate has increased BY 41 BPM Nonspecific T wave abnormality now evident in Lateral leads Referred By: Ness Andresen Electronically Signed By:Clifford Myrick
--- NOTE | 2022-07-11 19:30 | ED.CHESTPAIN ---
HPI - Chest Pain General Chief Complaint: Chest Pain <ESPERANZA Joseph - Last Filed: 07/11/22 19:39> Stated Complaint: heart attack? <ESPERANZA Joseph - Last Filed: 07/11/22 19:39> Time Seen by Provider: 07/11/22 21:11 <ESPERANZA Joseph - Last Filed: 07/11/22 19:39> Source: patient <Rohit Rae MD - Last Filed: 07/11/22 23:40> Mode of arrival: ambulatory <Rohit Rae MD - Last Filed: 07/11/22 23:40> Limitations: no limitations <Rohit Rae MD - Last Filed: 07/11/22 23:40> History of Present Illness HPI narrative: 56-year-old male who presents emergency department for evaluation of chest pain. The patient states that the chest pain started this morning at around 10:00. He points to his left chest when asked to localize the pain. He states that the pain is a sharp stabbing pain which is intermittent. He states that the last 20-30 minutes. He has had multiple episodes throughout the day. He states he has had associated nausea and at least 6 episodes of emesis with no blood in the emesis. He is also states he has had multiple episodes of diarrhea. The patient states he has not been able to eat or drink throughout the day. The patient was seen here in the emergency department on 06/03/2022 with chest pain and STEMI. His initial troponin was 38 and went as high as 238.8 according to his he was sent to [facility] and had 2 stents placed pain . His states that this is his 3rd myocardial infarction ( April 2018 with stent, June 2018, May 2022 with 2 stents) The patient denied fever, chills, rhinorrhea, sore throat, cough he states he has been feeling short of breath and having dyspnea on exertion since is myocardial infarction in May. He denied dark tarry stools or black stools. <Rohit Rae MD - Last Filed: 07/11/22 23:40> Related Data Home Medications: Home Medications Medication Instructions Recorded Confirmed aspirin 81 mg tablet,delayed 81 mg PO DAILY 07/19/21 07/01/22 release insulin glargine 100 unit/mL (3 20 unit subcut DAILY 01/28/22 07/01/22 mL) subcutaneous pen (Lantus Solostar U-100 Insulin) Radico PACK 1 packet PO DAILY 06/03/22 07/01/22 atorvastatin 80 mg tablet 80 mg PO BEDTIME 07/01/22 07/01/22 carvedilol 3.125 mg tablet 6.25 mg PO BID 07/01/22 07/01/22 nitroglycerin 0.4 mg sublingual 0.4 mg sublingual PRN 07/01/22 07/01/22 tablet Previous Rx's Medication Instructions Recorded ezetimibe 10 mg tablet (Zetia) 10 mg PO DAILY #60 tabs 06/07/22 lorazepam 0.5 mg tablet (Ativan) 0.5 mg PO BID PRN anxiety #10 tabs 06/11/22 clopidogrel 75 mg tablet See Rx Instructions PO DAILY #100 07/01/22 tabs ondansetron 4 mg disintegrating 4 mg PO Q6-8H PRN nausea and 07/11/22 tablet vomiting #14 tabs <ESPERANZA Joseph - Last Filed: 07/11/22 19:39> Allergies/Adverse Reactions: Allergies Allergy/AdvReac Type Severity Reaction Status Date / Time No Known Allergies Allergy Verified 07/11/22 19:35 <ESPERANZA Joseph - Last Filed: 07/11/22 19:39> Review of Systems Review of Systems: Yes all other systems are reviewed and are negative <Rohit Rae MD - Last Filed: 07/11/22 23:40> [facility] Past Medical History [facility] Narrative: Social history: He lives at home with his . He denies tobacco use. He denies alcohol use. Denies drug use. <Rohit Rae MD - Last Filed: 07/11/22 23:40> Medical History: Medical History CAD (coronary artery disease) HLD (hyperlipidemia) HTN (hypertension) <ESPERANZA Joseph - Last Filed: 07/11/22 19:39> Surgical History: Surgical History History of appendectomy History of cardiac cath History of neck surgery History of umbilical hernia repair <ESPERANZA Joseph - Last Filed: 07/11/22 19:39> Family History Family History: Family History Mother HTN (hypertension) Father HTN (hypertension) <ESPERANZA Joseph - Last Filed: 07/11/22 19:39> Social History Social History: Social History Household Members: Spouse Housing: House Do you presently have visiting nurse or other home services: No Alcohol intake: never Patient Tobacco Use Status: Never used Tobacco Advance Directives: Yes Advance Directives Information Provided: No Advance Directives on File: No <ESPERANZA Joseph - Last Filed: 07/11/22 19:39> Physical Exam Vital Signs: Vital Signs: Last Vital Signs Temp 98.2 F 07/11/22 19:51 Pulse 95 07/11/22 22:07 Resp 20 07/11/22 22:07 BP 128/80 07/11/22 22:07 Pulse Ox 94 07/11/22 22:07 O2 Del Method 07/11/22 22:07 BMI result Body Mass Index 31.9 <ESPERANZA Joseph - Last Filed: 07/11/22 19:39> Vital Signs: Last Vital Signs Temp 98.2 F 07/11/22 19:51 Pulse 95 07/11/22 22:07 Resp 20 07/11/22 22:07 BP 128/80 07/11/22 22:07 Pulse Ox 94 07/11/22 22:07 O2 Del Method 07/11/22 22:07 BMI result Body Mass Index 31.9 <Rohit Rae MD - Last Filed: 07/11/22 23:40> Const: General: cooperative and no acute distress <Rohit Rae MD - Last Filed: 07/11/22 23:40> Orientation/consciousness: oriented to person and oriented to place <Rohit Rae MD - Last Filed: 07/11/22 23:40> Limitations: no limitations <Rohit Rae MD - Last Filed: 07/11/22 23:40> HEENT: Head: Yes normal to inspection, Yes normocephalic and Yes atraumatic <Rohit Rae MD - Last Filed: 07/11/22 23:40> Ears: external ears normal <Rohit Rae MD - Last Filed: 07/11/22 23:40> General nose exam: Normal external nose present <Rohit Rae MD - Last Filed: 07/11/22 23:40> Face and sinus: Yes normal facial exam <MD Alice Wen Last Filed: 07/11/22 23:40> Mouth: Normal oral and palatal mucosa present <MD Alice Wen Last Filed: 07/11/22 23:40> Throat: Yes posterior oropharynx normal <Rohit Rae MD - Last Filed: 07/11/22 23:40> Eyes: General: appearance normal, both eyes and all related structures <Rohit Rae MD - Last Filed: 07/11/22 23:40> Pupils: Equal, round and reactive pupils present <MD Alice Wen Last Filed: 07/11/22 23:40> Neck: Neck: Yes normal visual inspection, Yes no lymphadenopathy, Yes trachea midline and Yes supple <MD Alice Wen Last Filed: 07/11/22 23:40> Chest: Chest palpation & inspection: normal inspection of the chest and tenderness (Left anterior chest wall tenderness) <MD Alice Wen Last Filed: 07/11/22 23:40> Resp: Effort & Inspection: normal respiratory effort and able to speak in complete sentences <MD Alice Wen Last Filed: 07/11/22 23:40> Auscultation: clear to auscultation bilaterally <MD Alice Wen Last Filed: 07/11/22 23:40> Cardio: Rate: regular rate <MD Alice Wen Last Filed: 07/11/22 23:40> Rhythm: regular rhythm <MD Alice Wen Last Filed: 07/11/22 23:40> Heart sounds: S1 normal heart sound present, S2 normal heart sound present and no murmurs <Rohit Rae MD - Last Filed: 07/11/22 23:40> GI: Inspection: Yes normal to inspection <Rohit Rae MD - Last Filed: 07/11/22 23:40> Palpation (GI): Soft to palpation, nontender and no guarding <Rohit Rae MD - Last Filed: 07/11/22 23:40> Auscultation: normal bowel sounds <Rohit Rae MD - Last Filed: 07/11/22 23:40> : General: Yes no CVA tenderness <Rohit Rae MD - Last Filed: 07/11/22 23:40> Back/Spine/Pelvis: Back: no CVA tenderness <Rohit Rae MD - Last Filed: 07/11/22 23:40> Skin: General skin exam: no rashes or lesions noted <Rohit Rae MD - Last Filed: 07/11/22 23:40> Neuro: General: oriented to person and oriented to place <Rohit Rae MD - Last Filed: 07/11/22 23:40> Cranial nerves: Yes CN's II-XII intact bilaterally and Yes Equal, round and reactive pupils present <Rohit Rae MD - Last Filed: 07/11/22 23:40> Cognition (Neuro): normal cognition <Rohit Rae MD - Last Filed: 07/11/22 23:40> Motor exam (neuro): 5/5 motor strength present throughout <Rohit Rae MD - Last Filed: 07/11/22 23:40> Extrem: General: Yes normal to inspection <Rohit Rae MD - Last Filed: 07/11/22 23:40> Psych: Appearance: grossly normal <Rohit Rae MD - Last Filed: 07/11/22 23:40> Speech and movement: Normal speech and movement present <Rohit Rae MD - Last Filed: 07/11/22 23:40> Affect: normal affect <Rohit Rae MD - Last Filed: 07/11/22 23:40> Attitude: cooperative <Rohit Rae MD - Last Filed: 07/11/22 23:40> Course Course Course Narrative: PHILLIP-- 56yo M w/PMHx NSTEMI s/p cardiac catheterization with stent placement on 06/04/22 presenting to the ED complaining of constant chest pain since 10:00AM. Dr. Myrick sent patient to ED EKG, labs, CXR ordered <ESPERANZA Joseph - Last Filed: 07/11/22 19:39> Medications Administered Discontinued Medications Generic Name Dose Route Start Last Admin Trade Name Freq PRN Reason Stop Dose Admin Sodium Chloride 1,000 mls @ 999 mls/hr 07/11/22 21:45 07/11/22 22:06 Ns IV 07/11/22 22:45 999 mls/hr .Q1H1M STA Administration Ketorolac Tromethamine 15 mg 07/11/22 21:45 07/11/22 22:06 Ketorolac Tromethamine 15 Mg/Ml Vial IVPUSH 07/11/22 21:46 15 mg ONCE STA Administration Ondansetron HCl 4 mg 07/11/22 21:45 07/11/22 22:06 Ondansetron Hcl 4 Mg/2 Ml Vial IVPUSH 07/11/22 21:46 4 mg ONCE ONE Administration <ESPERANZA Joseph - Last Filed: 07/11/22 19:39> Medications Administered Discontinued Medications Generic Name Dose Route Start Last Admin Trade Name Freq PRN Reason Stop Dose Admin Sodium Chloride 1,000 mls @ 999 mls/hr 07/11/22 21:45 07/11/22 22:06 Ns IV 07/11/22 22:45 999 mls/hr .Q1H1M STA Administration Ketorolac Tromethamine 15 mg 07/11/22 21:45 07/11/22 22:06 Ketorolac Tromethamine 15 Mg/Ml Vial IVPUSH 07/11/22 21:46 15 mg ONCE STA Administration Ondansetron HCl 4 mg 07/11/22 21:45 07/11/22 22:06 Ondansetron Hcl 4 Mg/2 Ml Vial IVPUSH 07/11/22 21:46 4 mg ONCE ONE Administration <Rohit Rae MD - Last Filed: 07/11/22 23:40> Medical Decision Making Medical Decision Making MDM Narrative: 56-year-old male with a history of diabetes, hypertension, hyperlipidemia, coronary disease with 3 myocardial infarctions in the past with last and STEMI 06/03/2022 initially seen here sent to [facility] were he had 2 stents placed. His last myocardial infarction he has had shortness of breath dyspnea on exertion and intermittent episodes of chest pain. Anterior chest, sharp, intermittent, lasting 30 minutes with multiple episodes. He also had associated nausea, vomiting and diarrhea with no other symptoms. Patient's vital signs did reveal an elevated pulse of 109 elevated respiratory rate of 22, these improved with the treatment. At the time my examination he was having left-sided chest pain and did have left-sided chest wall tenderness otherwise exam was unremarkable. Patient had a laboratory evaluation ordered at triage which included a CBC, CMP, PT/INR, high sensitive troponin I and COVID-19 2201: My interpretation of the patient's laboratory evaluation is as follows: WBC elevated 14,400, elevated glucose 196, 1st high sensitive troponin I was detectable but not elevated at 3.7, repeat is due at 21:45 hours. COVID-19 was negative. The patient's pain seems atypical for STEMI , he was treated with normal saline 1 L IV, Zofran 4 mg IV and Toradol 15 mg IV pain. Patient will be kept on a cardiac and O2 saturation monitor until his repeat troponin is available. 2332: The patient did get some improvement with the above treatment. He has been able to drink fluid well any difficulty. The patient's repeat high sensitive troponin I was 4.1 suggesting that he did not have myocardial injury is the cause of his pain. I did discuss this with him and his . Patient was given Tylenol 975 mg orally. He was advised to take Tylenol 1000 mg every 4-6 hours as needed for pain and he was also prescribed Zofran 4 mg every 8 hours as needed for nausea and vomiting. <Rohit Rae MD - Last Filed: 07/11/22 23:40> Differential Diagnosis Differential Diagnoses: The differential diagnosis associated with the presentation includes <Rohit Rae MD - Last Filed: 07/11/22 23:40> Differential diagnosis includes was not limited to myocardial infarction, myocardial injury, angina, pericarditis, Lion syndrome, viral syndrome, dehydrated <Rohit Rae MD - Last Filed: 07/11/22 23:40> Lab Data MDM Lab Attestation statement: I reviewed the patient's lab results. <Rohit Rae MD - Last Filed: 07/11/22 23:40> Result Diagrams: 07/11/22 19:44 07/11/22 19:44 <ESPERANZA Joseph - Last Filed: 07/11/22 19:39> Labs: Lab Results 07/11/22 07/11/22 07/11/22 Range/Units 19:44 19:44 19:44 WBC 14.4 H (4.8-10.8) X10*3/uL RBC 5.21 (4.60-5.80) X10*6/uL Hgb 15.5 (14.0-18.0) g/dl Hct 45.5 (42.0-52.0) % MCV 87.3 (80.0-98.0) fL MCH 29.8 (27.0-33.0) pg MCHC 34.1 (31.0-36.0) g/dl RDW 12.8 (11.0-16.0) % Plt Count 215 (160-400) X10*3/uL MPV 8.5 L (9.4-12.4) fL Immature Gran % (Auto) 0.4 (0.0-0.4) % Neut % (Auto) 93.3 H (45-73) % Lymph % (Auto) 3.3 L (20-40) % [place] % (Auto) 2.6 (2-11) % Eos % (Auto) 0.2 (0-4) % Baso % (Auto) 0.2 (0-2) % Lymph # (Auto) 0.5 L (1.2-4.9) X10*3/uL [place] # (Auto) 0.4 (0.1-1.2) X10*3/uL Eos # (Auto) 0.0 (0.0-0.4) X10*3/uL Baso # (Auto) 0.0 (0.0-0.2) X10*3/uL Abs Immat Gran (auto) 0.06 H (0.00-0.03) X10*3/uL Absolute Neuts (auto) 13.4 H (2.0-8.3) x10*3/uL Absolute Nucleated RBC 0.000 (0.0-0.012) X10*3/uL Nucleated RBC % (auto) 0.0 (0.0-0.2) /100WBC PT 13.0 (10.0-13.1) SEC INR 1.1 (0.9-1.1) Sodium 135 (135-145) mmol/L Potassium 4.0 (3.3-5.1) mmol/L Chloride 105 (96-108) mmol/L Carbon Dioxide 18 L (22-29) mmol/L Anion Gap 16 (12-20) BUN 19 H (9-16) mg/dL Creatinine 1.07 (0.5-1.4) mg/dL Estim Creat Clear Calc 80.9 Estimated GFR > 60 Random Glucose 196 H (60-115) mg/dL Calcium 8.5 D (8.4-10.2) mg/dL Total Bilirubin 1.3 H (0.0-1.0) mg/dL Direct Bilirubin 0.4 (0.0-0.5) mg/dL AST 22 (5-37) U/L ALT 26 (0-40) U/L Alkaline Phosphatase 56 (39-117) U/L Troponin I High Sens (<3.5-35.0) ng/L B-Natriuretic Peptide (<100) pg/mL Total Protein 6.4 L (6.5-8.0) g/dL Albumin 3.8 (3.5-5.0) g/dL COVID-19 ([place]) (Negative) COVID-19 Clin Com 07/11/22 07/11/22 07/11/22 Range/Units 19:44 19:44 19:44 WBC (4.8-10.8) X10*3/uL RBC (4.60-5.80) X10*6/uL Hgb (14.0-18.0) g/dl Hct (42.0-52.0) % MCV (80.0-98.0) fL MCH (27.0-33.0) pg MCHC (31.0-36.0) g/dl RDW (11.0-16.0) % Plt Count (160-400) X10*3/uL MPV (9.4-12.4) fL Immature Gran % (Auto) (0.0-0.4) % Neut % (Auto) (45-73) % Lymph % (Auto) (20-40) % [place] % (Auto) (2-11) % Eos % (Auto) (0-4) % Baso % (Auto) (0-2) % Lymph # (Auto) (1.2-4.9) X10*3/uL [place] # (Auto) (0.1-1.2) X10*3/uL Eos # (Auto) (0.0-0.4) X10*3/uL Baso # (Auto) (0.0-0.2) X10*3/uL Abs Immat Gran (auto) (0.00-0.03) X10*3/uL Absolute Neuts (auto) (2.0-8.3) x10*3/uL Absolute Nucleated RBC (0.0-0.012) X10*3/uL Nucleated RBC % (auto) (0.0-0.2) /100WBC PT (10.0-13.1) SEC INR (0.9-1.1) Sodium (135-145) mmol/L Potassium (3.3-5.1) mmol/L Chloride (96-108) mmol/L Carbon Dioxide (22-29) mmol/L Anion Gap (12-20) BUN (9-16) mg/dL Creatinine (0.5-1.4) mg/dL Estim Creat Clear Calc Estimated GFR Random Glucose (60-115) mg/dL Calcium (8.4-10.2) mg/dL Total Bilirubin (0.0-1.0) mg/dL Direct Bilirubin (0.0-0.5) mg/dL AST (5-37) U/L ALT (0-40) U/L Alkaline Phosphatase (39-117) U/L Troponin I High Sens 3.7 D (<3.5-35.0) ng/L B-Natriuretic Peptide 15 (<100) pg/mL Total Protein (6.5-8.0) g/dL Albumin (3.5-5.0) g/dL COVID-19 ([place]) Negative (Negative) COVID-19 Clin Com See Note 07/11/22 Range/Units 22:03 WBC (4.8-10.8) X10*3/uL RBC (4.60-5.80) X10*6/uL Hgb (14.0-18.0) g/dl Hct (42.0-52.0) % MCV (80.0-98.0) fL MCH (27.0-33.0) pg MCHC (31.0-36.0) g/dl RDW (11.0-16.0) % Plt Count (160-400) X10*3/uL MPV (9.4-12.4) fL Immature Gran % (Auto) (0.0-0.4) % Neut % (Auto) (45-73) % Lymph % (Auto) (20-40) % [place] % (Auto) (2-11) % Eos % (Auto) (0-4) % Baso % (Auto) (0-2) % Lymph # (Auto) (1.2-4.9) X10*3/uL [place] # (Auto) (0.1-1.2) X10*3/uL Eos # (Auto) (0.0-0.4) X10*3/uL Baso # (Auto) (0.0-0.2) X10*3/uL Abs Immat Gran (auto) (0.00-0.03) X10*3/uL Absolute Neuts (auto) (2.0-8.3) x10*3/uL Absolute Nucleated RBC (0.0-0.012) X10*3/uL Nucleated RBC % (auto) (0.0-0.2) /100WBC PT (10.0-13.1) SEC INR (0.9-1.1) Sodium (135-145) mmol/L Potassium (3.3-5.1) mmol/L Chloride (96-108) mmol/L Carbon Dioxide (22-29) mmol/L Anion Gap (12-20) BUN (9-16) mg/dL Creatinine (0.5-1.4) mg/dL Estim Creat Clear Calc Estimated GFR Random Glucose (60-115) mg/dL Calcium (8.4-10.2) mg/dL Total Bilirubin (0.0-1.0) mg/dL Direct Bilirubin (0.0-0.5) mg/dL AST (5-37) U/L ALT (0-40) U/L Alkaline Phosphatase (39-117) U/L Troponin I High Sens 4.1 (<3.5-35.0) ng/L B-Natriuretic Peptide (<100) pg/mL Total Protein (6.5-8.0) g/dL Albumin (3.5-5.0) g/dL COVID-19 ([place]) (Negative) COVID-19 Clin Com <ESPERANZA Joseph - Last Filed: 07/11/22 19:39> Lab Results 07/11/22 07/11/22 07/11/22 Range/Units 19:44 19:44 19:44 WBC 14.4 H (4.8-10.8) X10*3/uL RBC 5.21 (4.60-5.80) X10*6/uL Hgb 15.5 (14.0-18.0) g/dl Hct 45.5 (42.0-52.0) % MCV 87.3 (80.0-98.0) fL MCH 29.8 (27.0-33.0) pg MCHC 34.1 (31.0-36.0) g/dl RDW 12.8 (11.0-16.0) % Plt Count 215 (160-400) X10*3/uL MPV 8.5 L (9.4-12.4) fL Immature Gran % (Auto) 0.4 (0.0-0.4) % Neut % (Auto) 93.3 H (45-73) % Lymph % (Auto) 3.3 L (20-40) % [place] % (Auto) 2.6 (2-11) % Eos % (Auto) 0.2 (0-4) % Baso % (Auto) 0.2 (0-2) % Lymph # (Auto) 0.5 L (1.2-4.9) X10*3/uL [place] # (Auto) 0.4 (0.1-1.2) X10*3/uL Eos # (Auto) 0.0 (0.0-0.4) X10*3/uL Baso # (Auto) 0.0 (0.0-0.2) X10*3/uL Abs Immat Gran (auto) 0.06 H (0.00-0.03) X10*3/uL Absolute Neuts (auto) 13.4 H (2.0-8.3) x10*3/uL Absolute Nucleated RBC 0.000 (0.0-0.012) X10*3/uL Nucleated RBC % (auto) 0.0 (0.0-0.2) /100WBC PT 13.0 (10.0-13.1) SEC INR 1.1 (0.9-1.1) Sodium 135 (135-145) mmol/L Potassium 4.0 (3.3-5.1) mmol/L Chloride 105 (96-108) mmol/L Carbon Dioxide 18 L (22-29) mmol/L Anion Gap 16 (12-20) BUN 19 H (9-16) mg/dL Creatinine 1.07 (0.5-1.4) mg/dL Estim Creat Clear Calc 80.9 Estimated GFR > 60 Random Glucose 196 H (60-115) mg/dL Calcium 8.5 D (8.4-10.2) mg/dL Total Bilirubin 1.3 H (0.0-1.0) mg/dL Direct Bilirubin 0.4 (0.0-0.5) mg/dL AST 22 (5-37) U/L ALT 26 (0-40) U/L Alkaline Phosphatase 56 (39-117) U/L Troponin I High Sens (<3.5-35.0) ng/L B-Natriuretic Peptide (<100) pg/mL Total Protein 6.4 L (6.5-8.0) g/dL Albumin 3.8 (3.5-5.0) g/dL COVID-19 ([place]) (Negative) COVID-19 Clin Com 07/11/22 07/11/22 07/11/22 Range/Units 19:44 19:44 19:44 WBC (4.8-10.8) X10*3/uL RBC (4.60-5.80) X10*6/uL Hgb (14.0-18.0) g/dl Hct (42.0-52.0) % MCV (80.0-98.0) fL MCH (27.0-33.0) pg MCHC (31.0-36.0) g/dl RDW (11.0-16.0) % Plt Count (160-400) X10*3/uL MPV (9.4-12.4) fL Immature Gran % (Auto) (0.0-0.4) % Neut % (Auto) (45-73) % Lymph % (Auto) (20-40) % [place] % (Auto) (2-11) % Eos % (Auto) (0-4) % Baso % (Auto) (0-2) % Lymph # (Auto) (1.2-4.9) X10*3/uL [place] # (Auto) (0.1-1.2) X10*3/uL Eos # (Auto) (0.0-0.4) X10*3/uL Baso # (Auto) (0.0-0.2) X10*3/uL Abs Immat Gran (auto) (0.00-0.03) X10*3/uL Absolute Neuts (auto) (2.0-8.3) x10*3/uL Absolute Nucleated RBC (0.0-0.012) X10*3/uL Nucleated RBC % (auto) (0.0-0.2) /100WBC PT (10.0-13.1) SEC INR (0.9-1.1) Sodium (135-145) mmol/L Potassium (3.3-5.1) mmol/L Chloride (96-108) mmol/L Carbon Dioxide (22-29) mmol/L Anion Gap (12-20) BUN (9-16) mg/dL Creatinine (0.5-1.4) mg/dL Estim Creat Clear Calc Estimated GFR Random Glucose (60-115) mg/dL Calcium (8.4-10.2) mg/dL Total Bilirubin (0.0-1.0) mg/dL Direct Bilirubin (0.0-0.5) mg/dL AST (5-37) U/L ALT (0-40) U/L Alkaline Phosphatase (39-117) U/L Troponin I High Sens 3.7 D (<3.5-35.0) ng/L B-Natriuretic Peptide 15 (<100) pg/mL Total Protein (6.5-8.0) g/dL Albumin (3.5-5.0) g/dL COVID-19 ([place]) Negative (Negative) COVID-19 Clin Com See Note 07/11/22 Range/Units 22:03 WBC (4.8-10.8) X10*3/uL RBC (4.60-5.80) X10*6/uL Hgb (14.0-18.0) g/dl Hct (42.0-52.0) % MCV (80.0-98.0) fL MCH (27.0-33.0) pg MCHC (31.0-36.0) g/dl RDW (11.0-16.0) % Plt Count (160-400) X10*3/uL MPV (9.4-12.4) fL Immature Gran % (Auto) (0.0-0.4) % Neut % (Auto) (45-73) % Lymph % (Auto) (20-40) % [place] % (Auto) (2-11) % Eos % (Auto) (0-4) % Baso % (Auto) (0-2) % Lymph # (Auto) (1.2-4.9) X10*3/uL [place] # (Auto) (0.1-1.2) X10*3/uL Eos # (Auto) (0.0-0.4) X10*3/uL Baso # (Auto) (0.0-0.2) X10*3/uL Abs Immat Gran (auto) (0.00-0.03) X10*3/uL Absolute Neuts (auto) (2.0-8.3) x10*3/uL Absolute Nucleated RBC (0.0-0.012) X10*3/uL Nucleated RBC % (auto) (0.0-0.2) /100WBC PT (10.0-13.1) SEC INR (0.9-1.1) Sodium (135-145) mmol/L Potassium (3.3-5.1) mmol/L Chloride (96-108) mmol/L Carbon Dioxide (22-29) mmol/L Anion Gap (12-20) BUN (9-16) mg/dL Creatinine (0.5-1.4) mg/dL Estim Creat Clear Calc Estimated GFR Random Glucose (60-115) mg/dL Calcium (8.4-10.2) mg/dL Total Bilirubin (0.0-1.0) mg/dL Direct Bilirubin (0.0-0.5) mg/dL AST (5-37) U/L ALT (0-40) U/L Alkaline Phosphatase (39-117) U/L Troponin I High Sens 4.1 (<3.5-35.0) ng/L B-Natriuretic Peptide (<100) pg/mL Total Protein (6.5-8.0) g/dL Albumin (3.5-5.0) g/dL COVID-19 ([place]) (Negative) COVID-19 Clin Com <Rohit Rae MD - Last Filed: 07/11/22 23:40> Independent Interpretation I performed an independent interpretation of an: EKG <Rohit Rae MD - Last Filed: 07/11/22 23:40> Interpretation: My independent interpretation patient's 12 EKG done at 22:54 hours is as follows: Sinus tachycardia with rate of 100, normal MS, QRS and QTC intervals, no ST segment elevation, no ST segment depression, no PACs, no PVCs <Rohit Rae MD - Last Filed: 07/11/22 23:40> Radiology Impression Discussion of test interpretation with radiology: I have reviewed the radiologist's reading. <Rohit Rae MD - Last Filed: 07/11/22 23:40> Radiologist Impression: XR chest 1V IMPRESSION: Unremarkable chest exam. Dictated By:Andre Freeman MDSigned By:<Electronically signed by Andre Freeman MD in [place]>07/11/222007 <Rohit Rae MD - Last Filed: 07/11/22 23:40> Independent Historian Clinical information obtained from an independent historian. History obtained from or confirmed by: Spouse <Rohit Rae MD - Last Filed: 07/11/22 23:40> External Record Review External record reviewed: Inpatient record and Office record <Rohit Rae MD - Last Filed: 07/11/22 23:40> Discharge Plan Discharge Clinical Impression: Chest pain, Nausea & vomiting, Diarrhea <ESPERANZA Joseph - Last Filed: 07/11/22 19:39> Patient Disposition: Home, Self-Care <ESPERANZA Joseph - Last Filed: 07/11/22 19:39> Instructions: Acute Nausea and Vomiting (ED), Acute Diarrhea (ED) <ESPERANZA Joseph - Last Filed: 07/11/22 19:39> Additional Instructions: Your EKG was unchanged from your previous EKGs. Your high sensitivity troponin I was detectable but not elevated at 3.7 and a repeat test was 4.1(less than 30 is normal in a male patient) which is reassuring suggesting that your chest pain today was not caused by heart damage/heart attack. Take Tylenol (acetaminophen) 500 mg pills, 2 pills every 6 hours as needed for pain. Take Zofran ODT 4 mg pills, 1 pill dissolved in your mouth every 8 hours as needed for nausea and vomiting. Follow-up with your doctor in 2 days. Please return to the emergency department if your symptoms get worse or if you develop any symptoms that are concerning to you. <ESPERANZA Joseph - Last Filed: 07/11/22 19:39> Prescriptions: New ondansetron 4 mg tablet,disintegrating 4 mg PO Q6-8H PRN (Reason: nausea and vomiting) Qty: 14 0RF No Action ezetimibe [Zetia] 10 mg tablet 10 mg PO DAILY Qty: 60 4RF Radico PACK 1 packet PO DAILY lorazepam [Ativan] 0.5 mg tablet 0.5 mg PO BID PRN (Reason: anxiety) Qty: 10 0RF aspirin 81 mg tablet,delayed release (DR/EC) 81 mg PO DAILY insulin glargine [Lantus Solostar U-100 Insulin] 100 unit/mL (3 mL) insulin pen 20 unit subcut DAILY carvedilol 3.125 mg tablet 6.25 mg PO BID atorvastatin 80 mg tablet 80 mg PO BEDTIME nitroglycerin 0.4 mg tablet, sublingual 0.4 mg sublingual PRN clopidogrel 75 mg tablet See Rx Instructions PO DAILY Qty: 100 4RF Rx Instructions: Take 4 tablets on day 1, take 1 tablet daily from next day orally daily; <ESPERANZA Joseph - Last Filed: 07/11/22 19:39>
[2022-07-11 19:32] VITALS: BP 117/67; PULSE 109; RESP 22; TEMP 36.8; O2SAT 95; BMI 31.9
[2022-07-11 19:48] LABS: MANUAL DIFF FLAG NO
[2022-07-11 19:50] LABS: Eosinophils Percent Auto 0.2 % (0-4); Lymphocytes Percent Auto 3.3 % (20-40); Mean Corpuscular Volume 87.3 fL (80.0-98.0); Mean Platelet Volume 8.5 fL (9.4-12.4); PLT CLUMP 1; SCAN SMEAR FLAG 1
[2022-07-11 19:51] VITALS: BP 137/81; PULSE 103; RESP 21; TEMP 36.8; O2SAT 94
[2022-07-11 19:52] LABS: Basophils Percent Auto 0.2 % (0-2); Hematocrit 45.5 % (42.0-52.0); Hemoglobin 15.5 g/dl (14.0-18.0); Imm Gran Abs Auto 0.06 X10*3/uL (0.00-0.03); Imm Gran Pct Auto 0.4 % (0.0-0.4); Lymphocytes Absolute Auto 0.5 X10*3/uL (1.2-4.9); Mean Corpuscular HGB Conc 34.1 g/dl (31.0-36.0); Mean Corpuscular Hemoglobin 29.8 pg (27.0-33.0); Monocytes Absolute Auto 0.4 X10*3/uL (0.1-1.2); Monocytes Percent Auto 2.6 % (2-11); Neutrophils Absolute Auto 13.4 x10*3/uL (2.0-8.3); Neutrophils Percent Auto 93.3 % (45-73); Red Blood Count 5.21 X10*6/uL (4.60-5.80); Red Cell Distribution Width 12.8 % (11.0-16.0)
[2022-07-11 19:55] LABS: INTERNATIONAL NORM RATIO 1.1 (0.9-1.1)
[2022-07-11 20:09] LABS: Alanine Aminotransferase 26 U/L (0-40); Albumin Level 3.8 g/dL (3.5-5.0); Alkaline Phosphatase 56 U/L (39-117); Anion Gap 16 (12-20); Aspartate Amino Transferase 22 U/L (5-37); Bilirubin Direct 0.4 mg/dL (0.0-0.5); Bilirubin Total 1.3 mg/dL (0.0-1.0); Blood Urea Nitrogen 19 mg/dL (9-16); Calcium 8.5 mg/dL (8.4-10.2); Carbon Dioxide 18 mmol/L (22-29); Chloride 105 mmol/L (96-108); Creatinine Clr Calc Pharmacy 80.9; Estimated Glomerular Filt Rate > 60; Glucose Random 196 mg/dL (60-115); Sodium 135 mmol/L (135-145); Total Protein 6.4 g/dL (6.5-8.0)
[2022-07-11 20:14] LABS: B Type Natriuretic Peptide 15 pg/mL (<100)
[2022-07-11 20:15] LABS: Platelet Count 215 X10*3/uL (160-400); Troponin-I High Sensitivity 3.7 ng/L (<3.5-35.0); White Blood Count 14.4 X10*3/uL (4.8-10.8)
[2022-07-11 21:27] LABS: COVID-19 Test Negative (Negative); IDNOW Serial# BCCEAD1C
[2022-07-11 21:53] VITALS: PULSE 99; RESP 18; O2SAT 94
[2022-07-11] MEDS: 0.9 % Sodium Chloride 1,000 ML 999 ML IV (22:06)
[2022-07-11] MEDS: Ketorolac Tromethamine 15 MG/ML VIAL IVPUSH (22:06)
[2022-07-11] MEDS: ondansetron HCL 4 MG/2 ML VIAL IVPUSH (22:06)
[2022-07-11 22:07] VITALS: BP 128/80; PULSE 95; RESP 20; O2SAT 94
[2022-07-11 22:31] LABS: Troponin-I High Sensitivity 4.1 ng/L (<3.5-35.0)
[2022-07-11] MEDS: Acetaminophen 325 MG TABLET 975 MG PO (23:45)
== END 2022-07-12 00:04 | disposition home or self-care (01) ==
PROVIDERS: Physician Assistant; Emergency Provider Emergency Medicine Emergency Medical Services; PCP Internal Medicine
DX: R07.9 Chest pain, unspecified (principal); R11.2 Nausea with vomiting, unspecified; R19.7 Diarrhea, unspecified; R06.02 Shortness of breath; Z20.822 Contact with and (suspected) exposure to COVID-19; I10 Essential (primary) hypertension; E78.5 Hyperlipidemia, unspecified; Z79.02 Long term (current) use of antithrombotics/antiplatelets; Z79.899 Other long term (current) drug therapy
CPT/HCPCS: 36415; 71045; 80048; 80076; 83880; 84484; 85025; 85610; 87635; 93005; 96361; 96374; 96375; 99284; J1885; J2405

== ENCOUNTER → 2022-08-07 13:52 | Outpatient (BNVA) | payer BC, SELFPAY | PROVIDERS: PCP Internal Medicine; Visit Provider Internal Medicine Cardiovascular Disease | DX: Z13.89 Encounter for screening for other disorder (principal) ==

== ENCOUNTER 2022-09-16 23:39 | Emergency (ER) | payer BC, SELFPAY ==
--- NOTE | 2022-09-16 | ECG_ITS ---
Test Reason : chest ppain Blood Pressure : / mmHG Vent. Rate : 081 BPM Atrial Rate : 081 BPM P-R Int : 164 ms QRS Dur : 088 ms QT Int : 376 ms P-R-T Axes : 036 009 051 degrees QTc Int : 436 ms Normal sinus rhythm Normal ECG When compared with ECG of 11-JUL-2022 19:25, No significant change was found Referred By: Generic ED Physician Electronically Signed By:WES WOODRUFF
--- NOTE | ~2022-09-16 | XR_ITS ---
EXAMINATION: XR CHEST CLINICAL INFORMATION: Chest pain COMPARISON: 07/11/2022 TECHNIQUE: Frontal view of the chest was obtained. FINDINGS: Normal symmetric lung volumes. No parenchymal consolidation. No pleural effusion. No pneumothorax. Cardiomediastinal silhouette and pulmonary vascularity are within normal limits. No acute osseous abnormalities. XR/XR chest 1V IMPRESSION: Clear lungs
[2022-09-17 00:02] VITALS: BP 145/83; PULSE 81; RESP 16; TEMP 36.8; O2SAT 94; BMI 31.3
[2022-09-17 00:03] LABS: MANUAL DIFF FLAG NO
[2022-09-17 00:04] LABS: Basophils Absolute Auto 0.1 X10*3/uL (0.0-0.2); Basophils Percent Auto 0.8 % (0-2); Eosinophils Absolute Auto 0.4 X10*3/uL (0.0-0.4); Eosinophils Percent Auto 4.3 % (0-4); Hematocrit 43.4 % (42.0-52.0); Hemoglobin 14.9 g/dl (14.0-18.0); Imm Gran Abs Auto 0.04 X10*3/uL (0.00-0.03); Imm Gran Pct Auto 0.4 % (0.0-0.4); Lymphocytes Absolute Auto 2.2 X10*3/uL (1.2-4.9); Lymphocytes Percent Auto 24.1 % (20-40); Mean Corpuscular HGB Conc 34.3 g/dl (31.0-36.0); Mean Corpuscular Hemoglobin 30.2 pg (27.0-33.0); Mean Platelet Volume 8.4 fL (9.4-12.4); Monocytes Absolute Auto 0.8 X10*3/uL (0.1-1.2); Monocytes Percent Auto 8.7 % (2-11); Neutrophils Absolute Auto 5.7 x10*3/uL (2.0-8.3); Neutrophils Percent Auto 61.7 % (45-73); Platelet Count 214 X10*3/uL (160-400); Red Blood Count 4.93 X10*6/uL (4.60-5.80); Red Cell Distribution Width 12.4 % (11.0-16.0); White Blood Count 9.2 X10*3/uL (4.8-10.8)
[2022-09-17 00:21] LABS: Anion Gap 15 (12-20); Blood Urea Nitrogen 16 mg/dL (9-16); Calcium 8.9 mg/dL (8.4-10.2); Carbon Dioxide 22 mmol/L (22-29); Chloride 107 mmol/L (96-108); Creatinine Clr Calc Pharmacy 95.2; Estimated Glomerular Filt Rate > 60; Glucose Random 126 mg/dL (60-115); Sodium 140 mmol/L (135-145)
[2022-09-17 00:28] LABS: Troponin-I High Sensitivity < 2.7 ng/L (<3.5-35.0)
[2022-09-17 00:49] VITALS: BP 117/83; PULSE 78; RESP 12; TEMP 36.8; O2SAT 95
--- NOTE | 2022-09-17 00:54 | ED.CHESTPAIN ---
HPI - Chest Pain General Chief Complaint: Chest Pain Stated Complaint: chest pain Time Seen by Provider: 09/17/22 00:44 Source: patient and family (Spouse) Mode of arrival: ambulatory Limitations: no limitations History of Present Illness HPI narrative: 56-year-old male history of CAD, unstable angina, and non ST elevation GA require 4 stents in his colon artery system due to MIs. Patient started to have mid chest pain radiated to the left shoulder about 6 hours ago, patient took sublingual nitro at home then started to have headache. No SOB, pain has been constant for 6 hours with no relief after nitro, pain was described as different from his previous GA in the past. No recent travel, no recent prolonged immobilization. Related Data Home Medications Medication Instructions Recorded Confirmed aspirin 81 mg tablet,delayed 81 mg PO DAILY 07/19/21 08/07/22 release insulin glargine 100 unit/mL (3 20 unit subcut DAILY 01/28/22 08/07/22 mL) subcutaneous pen (Lantus Solostar U-100 Insulin) [employer] PACK 1 packet PO DAILY 06/03/22 08/07/22 atorvastatin 80 mg tablet 80 mg PO BEDTIME 07/01/22 08/07/22 carvedilol 3.125 mg tablet 6.25 mg PO BID 07/01/22 08/07/22 nitroglycerin 0.4 mg sublingual 0.4 mg sublingual PRN 07/01/22 08/07/22 tablet clopidogrel 75 mg tablet 75 mg PO DAILY 08/07/22 08/07/22 Previous Rx's Medication Instructions Recorded ezetimibe 10 mg tablet (Zetia) 10 mg PO DAILY #60 tabs 06/07/22 lorazepam 0.5 mg tablet (Ativan) 0.5 mg PO BID PRN anxiety #10 tabs 06/11/22 ondansetron 4 mg disintegrating 4 mg PO Q6-8H PRN nausea and 07/11/22 tablet vomiting #14 tabs Allergies Allergy/AdvReac Type Severity Reaction Status Date / Time No Known Allergies Allergy Verified 09/17/22 00:05 Review of Systems Review of Systems: All other systems are reviewed and are negative Constitutional: Reports as per HPI and Reports no additional constitutional complaints Eyes: Reports as per HPI and Reports no additional eye complaints Reports system reviewed and no additional complaints, except as documented Cardiovascular: Reports as per HPI and Reports no additional cardiovascular complaints Respiratory: Reports as per HPI and Reports no additional respiratory complaints Gastrointestinal: Reports as per HPI and Reports no additional gastrointestinal complaints Genitourinary: Reports no additional female genitourinary complaints Musculoskeletal: Reports no additional musculoskeletal complaints Skin/Breast: Reports system reviewed and no additional complaints, except as docu Psychiatric: Reports no additional psychiatric complaints Endocrine: Reports no additional endocrine complaints Hematologic/Lymphatic: Reports no additional hematologic/lymphatic complaints Allergic/Immunologic: Reports no additional allergic/immunologic complaints Reports system reviewed and no additional complaints, except as documented and Reports Abnormal speech present [facility] Past Medical History Medical History CAD (coronary artery disease) HLD (hyperlipidemia) HTN (hypertension) Surgical History History of appendectomy History of cardiac cath History of neck surgery History of umbilical hernia repair Family History Family History Mother HTN (hypertension) Father HTN (hypertension) Social History Social History Household Members: Spouse Housing: House Do you presently have visiting nurse or other home services: No Alcohol intake: never Patient Tobacco Use Status: Never used Tobacco Smoked in Last 30 Days: No Use of substances other than those prescribed or required for medical reasons: No Advance Directives: No Advance Directives Information Provided: Yes Physical Exam Vital Signs: Vital Signs: Last Vital Signs Temp 98.2 F 09/17/22 00:49 Pulse 73 09/17/22 04:17 Resp 18 09/17/22 04:17 BP 110/68 09/17/22 04:17 Pulse Ox 96 09/17/22 04:17 O2 Del Method Room Air 09/17/22 04:17 BMI result Body Mass Index 31.3 Vital signs have been reviewed as appeared to be correct. Blood pressure normal. Heart rate normal. Respiration rate normal. Temperature normal. Oxygen saturation normal. Appearance: Alert. Oriented X3. No acute distress. Head: Normal external exam. Normocephalic. Atraumatic. No Rao signs noted. No raccoon eyes noted Eyes: PERRLA. EOMI. Conjunctiva and sclera normal. Eyelids normal. ENT: TM's Normal. Pharynx normal. Uvula midline. Moist mucous membranes. No trismus noted. No drooling noted. No muffled voice noted. Neck: Normal inspection. Neck supple. FROM. No adenopathy. Thyroid Normal. No meningeal signs. No neck mass noted. CVS: Normal heart rate and rhythm. Heart sound normal. No murmurs noted. Pulses normal throughout. Respiratory: No respiratory distress. Painless inspiration. Breath sounds normal. No wheezes/rales/rhonchi noted. Chest nontender. No accessory muscle usage noted or decreased air movement noted. Abdomen: Soft and nontender. Bowel sounds normal in all 4 quadrants. No distention noted. No organomegaly noted. No visible injury noted. Back: No CVA tenderness. Full range of motion noted. Skin: Skin warm and dry. Normal skin color. Normal skin turgor. No rashes/lesions/lacerations noted. Extremities: No lower extremity edema. Extremities exhibit normal range of motion. Extremities nontender. Neuro: Oriented X 3. Cranial nerve exam: II-XII are grossly intact No motor deficit. No sensory deficit. Reflexes normal. Course Course Course Narrative: 56-year-old male with history of ACS and CAD came in with chest pain, EKG not suggestive for ACS and had 2 negative troponin, the case and findings were discussed with Dr. Silverio who recommended if the patient is chest pain-free can go home, patient now complaining of no CP or SOB. Medications Administered Discontinued Medications Generic Name Dose Route Start Last Admin Trade Name Freq PRN Reason Stop Dose Admin Sodium Chloride 1,000 mls @ 999 mls/hr 09/17/22 00:53 09/17/22 02:35 Ns IV 09/17/22 01:53 Infused .Q1H1M ONE Infusion Morphine Sulfate 1 mg 09/17/22 00:52 09/17/22 01:22 Morphine Sulfate 2 Mg/Ml Cartridge IVPUSH 09/17/22 00:53 1 mg ONCE ONE Administration Protocol Medical Decision Making Differential Diagnosis Differential Diagnoses: The differential diagnosis associated with the presentation includes (ACS, myofascial chest pain, pneumonia, pneumothorax, or extra lytes abnormalities, severe anemia.) Admission/Observation Consideration of admission/observation: Escalation of care including admission/observation considered Consult Healthcare Provider Management of the patient was discussed with: [employer] (Dr. Silverio) Lab Data MDM Lab Attestation statement: I reviewed the patient's lab results. 09/16/22 23:58 09/16/22 23:58 Labs: Lab Results 09/16/22 09/16/22 09/16/22 Range/Units 23:58 23:58 23:58 WBC 9.2 (4.8-10.8) X10*3/uL RBC 4.93 (4.60-5.80) X10*6/uL Hgb 14.9 (14.0-18.0) g/dl Hct 43.4 (42.0-52.0) % MCV 88.0 (80.0-98.0) fL MCH 30.2 (27.0-33.0) pg MCHC 34.3 (31.0-36.0) g/dl RDW 12.4 (11.0-16.0) % Plt Count 214 (160-400) X10*3/uL MPV 8.4 L (9.4-12.4) fL Immature Gran % (Auto) 0.4 (0.0-0.4) % Neut % (Auto) 61.7 (45-73) % Lymph % (Auto) 24.1 (20-40) % [place] % (Auto) 8.7 (2-11) % Eos % (Auto) 4.3 H (0-4) % Baso % (Auto) 0.8 (0-2) % Lymph # (Auto) 2.2 (1.2-4.9) X10*3/uL [place] # (Auto) 0.8 (0.1-1.2) X10*3/uL Eos # (Auto) 0.4 (0.0-0.4) X10*3/uL Baso # (Auto) 0.1 (0.0-0.2) X10*3/uL Abs Immat Gran (auto) 0.04 H (0.00-0.03) X10*3/uL Absolute Neuts (auto) 5.7 (2.0-8.3) x10*3/uL Absolute Nucleated RBC 0.000 (0.0-0.012) X10*3/uL Nucleated RBC % (auto) 0.0 (0.0-0.2) /100WBC Sodium 140 (135-145) mmol/L Potassium 4.0 (3.3-5.1) mmol/L Chloride 107 (96-108) mmol/L Carbon Dioxide 22 (22-29) mmol/L Anion Gap 15 (12-20) BUN 16 (9-16) mg/dL Creatinine 0.93 (0.5-1.4) mg/dL Estim Creat Clear Calc 95.2 Estimated GFR > 60 Random Glucose 126 H (60-115) mg/dL Calcium 8.9 (8.4-10.2) mg/dL Troponin I High Sens < 2.7 (<3.5-35.0) ng/L B-Natriuretic Peptide (<100) pg/mL 09/16/22 09/17/22 Range/Units 23:58 03:53 WBC (4.8-10.8) X10*3/uL RBC (4.60-5.80) X10*6/uL Hgb (14.0-18.0) g/dl Hct (42.0-52.0) % MCV (80.0-98.0) fL MCH (27.0-33.0) pg MCHC (31.0-36.0) g/dl RDW (11.0-16.0) % Plt Count (160-400) X10*3/uL MPV (9.4-12.4) fL Immature Gran % (Auto) (0.0-0.4) % Neut % (Auto) (45-73) % Lymph % (Auto) (20-40) % [place] % (Auto) (2-11) % Eos % (Auto) (0-4) % Baso % (Auto) (0-2) % Lymph # (Auto) (1.2-4.9) X10*3/uL [place] # (Auto) (0.1-1.2) X10*3/uL Eos # (Auto) (0.0-0.4) X10*3/uL Baso # (Auto) (0.0-0.2) X10*3/uL Abs Immat Gran (auto) (0.00-0.03) X10*3/uL Absolute Neuts (auto) (2.0-8.3) x10*3/uL Absolute Nucleated RBC (0.0-0.012) X10*3/uL Nucleated RBC % (auto) (0.0-0.2) /100WBC Sodium (135-145) mmol/L Potassium (3.3-5.1) mmol/L Chloride (96-108) mmol/L Carbon Dioxide (22-29) mmol/L Anion Gap (12-20) BUN (9-16) mg/dL Creatinine (0.5-1.4) mg/dL Estim Creat Clear Calc Estimated GFR Random Glucose (60-115) mg/dL Calcium (8.4-10.2) mg/dL Troponin I High Sens < 2.7 (<3.5-35.0) ng/L B-Natriuretic Peptide < 10 (<100) pg/mL Independent Interpretation I performed an independent interpretation of an: EKG (Normal sinus rhythm at 81 beats per minute, normal intervals, [id number].) and Plain X-Ray (Chest: No acute intrathoracic pathology) Radiology Impression Discussion of test interpretation with radiology: I have reviewed the radiologist's reading. Discharge Plan Discharge Clinical Impression: Chest pain Patient Disposition: Home, Self-Care Instructions: Chest Pain (ED) Prescriptions: No Action ezetimibe [Zetia] 10 mg tablet 10 mg PO DAILY Qty: 60 4RF [employer] PACK 1 packet PO DAILY lorazepam [Ativan] 0.5 mg tablet 0.5 mg PO BID PRN (Reason: anxiety) Qty: 10 0RF ondansetron 4 mg tablet,disintegrating 4 mg PO Q6-8H PRN (Reason: nausea and vomiting) Qty: 14 0RF aspirin 81 mg tablet,delayed release (DR/EC) 81 mg PO DAILY insulin glargine [Lantus Solostar U-100 Insulin] 100 unit/mL (3 mL) insulin pen 20 unit subcut DAILY clopidogrel 75 mg tablet 75 mg PO DAILY carvedilol 3.125 mg tablet 6.25 mg PO BID atorvastatin 80 mg tablet 80 mg PO BEDTIME nitroglycerin 0.4 mg tablet, sublingual 0.4 mg sublingual PRN Referrals: Kenrick Gotti MD [Primary Care Provider] - Clifford Myrick MD [Physician] -
[2022-09-17 01:22] VITALS: RESP 20
[2022-09-17] MEDS: Morphine Sulfate 2 MG/ML CARTRIDGE 1 MG IVPUSH (01:22)
--- NOTE | 2022-09-17 01:27 | PC.NURSE ---
Pt ca&ox3, no signs of distress. Pt reports 6/10 chest pain and headache. Pt medicated per jun. Will continue to monitor.
[2022-09-17 01:28] LABS: B Type Natriuretic Peptide < 10 pg/mL (<100)
[2022-09-17] MEDS: 0.9 % Sodium Chloride 1,000 ML 999 ML IV (01:32)
--- NOTE | 2022-09-17 02:15 | PC.NURSE ---
Pt resting comfortably with at bedside. No signs of distress. Will continue to monitor.
--- NOTE | 2022-09-17 02:49 | PC.NURSE ---
Pt resting comfortably with at bedside. No signs of distress. Will continue to monitor.
[2022-09-17 02:58] VITALS: BP 118/65; PULSE 77; RESP 19; O2SAT 96
[2022-09-17 04:17] VITALS: BP 110/68; PULSE 73; RESP 18; O2SAT 96
--- NOTE | 2022-09-17 04:18 | PC.NURSE ---
Pt resting comfortably, no signs of distress. Pt at bedside. vitals stable. Will continue to monitor.
[2022-09-17 04:19] LABS: Troponin-I High Sensitivity < 2.7 ng/L (<3.5-35.0)
--- NOTE | 2022-09-17 04:43 | PC.NURSE ---
made aware of trop.
== END 2022-09-17 05:26 | disposition home or self-care (01) ==
PROVIDERS: Emergency Provider Emergency Medicine; PCP Internal Medicine
DX: R07.9 Chest pain, unspecified (principal); I25.10 Atherosclerotic heart disease of native coronary artery without angina pectoris; I25.2 Old myocardial infarction; I10 Essential (primary) hypertension; R51.9 Headache, unspecified
CPT/HCPCS: 36415; 71045; 80048; 83880; 84484; 85025; 93005; 96361; 96374; 99285; J2270

== ENCOUNTER → 2022-09-18 13:20 | Outpatient (BNVA) | payer BC, SELFPAY | PROVIDERS: PCP Internal Medicine; Visit Provider Internal Medicine Cardiovascular Disease | DX: I21.4 Non-ST elevation (NSTEMI) myocardial infarction (principal); I10 Essential (primary) hypertension; E78.5 Hyperlipidemia, unspecified; R07.9 Chest pain, unspecified; Z95.5 Presence of coronary angioplasty implant and graft; Z98.890 Other specified postprocedural states | CPT/HCPCS: 93005 ==

== ENCOUNTER → 2022-10-23 15:20 | Outpatient (BNVA) | payer BC, SELFPAY | PROVIDERS: Visit Provider Internal Medicine Cardiovascular Disease ==

== ENCOUNTER 2023-02-10 14:34 | Outpatient (AMB) | payer OTHER, SELFPAY ==
[2023-02-10 14:47] VITALS: BP 116/70; PULSE 72; BMI 33.1
--- NOTE | 2023-02-10 14:47 | A.OFFVIS_ITS ---
Intake Vital Signs 02/10/23 14:47 Height 5 ft 6 in Weight 205 lb 0.478 oz BMI 33.1 BP 116/70 Blood Pressure Location Lt brachial Position Sitting Pulse 72 Intake Visit Reasons: 4 mth f/up Intake Note: 4 month follow-up feeling ok [place] [employer] Required: No Allergies No Known Allergies Allergy (Verified 10/23/22 15:25) Medication List - Last Reconciled 02/10/23 by Clifford Myrick MD amlodipine 2.5 mg PO DAILY aspirin 81 mg PO DAILY atorvastatin 80 mg PO BEDTIME carvedilol 6.25 mg PO BID clopidogrel 75 mg PO DAILY ezetimibe (Zetia) 10 mg PO DAILY insulin glargine (Lantus Solostar U-100 Insulin) 20 units subcut DAILY lorazepam (Ativan) 0.5 mg PO BID PRN [[employer] PACK 1 packet PO DAILY] nitroglycerin 0.4 mg sublingual PRN omeprazole 40 mg PO DAILY HPI HPI Comments History of Present Illness Details Pleasant 57 year gentleman here for follow-up. He previously had LAD and RCA PCI. Recently presented with NSTEMI underwent circumflex PCI. He did well after the PCI and was doing well with cardiac rehabilitation. He returns now because he went to the emergency department for chest pain. He said he had twinges on the left side of his chest and then persistent chest discomfort in his left pectoral area which radiated to the shoulder and left arm. These symptoms are present for 6 hours before he went to the emergency department. His high sensitive troponin level was normal. His ECG was also normal. He spent another 8 hours emergency department and then was discharged home. He is quite frustrated because he has been getting the same pain is randomly. He walks his dog daily and is in the [place] going [place] at times. He is saying that off and on he has felt similar pains while going up but this is not a consistent symptoms. Since his PCI has had similar episodes requiring ER visit and blood workup a few times. His biomarkers have never been abnormal. His ECG is completely normal. We discussed that his chest pain could be from other causes and we started omeprazole and low-dose amlodipine thinking that he may have acid reflux with esophageal spasm. He returns for follow-up and has been feeling much better. His symptoms have improved significantly after addition of omeprazole amlodipine. He is walking his dog and has been doing well. 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 02/10/23: He returns for follow-up. O ccasionally he gets left-sided chest discomfort. This is nonexertional. When he is walking his dog he has no symptoms. He is under lot of stress because he got laid off from his job. he has applied for new job and is waiting. He is saying that he gets angry very e asily these days. He is asking if any of the medications are playing a role in that. [facility] Medical History CAD (coronary artery disease) HLD (hyperlipidemia) HTN (hypertension) Surgical History History of appendectomy History of cardiac cath History of neck surgery History of umbilical hernia repair Family History Mother HTN (hypertension) Father HTN (hypertension) Social History Household Members: Spouse Housing: House Do you presently have visiting nurse or other home services: No Alcohol intake: never Patient Tobacco Use Status: Never used Tobacco Review of Systems Const Denies chills, Denies daytime sleepiness, Denies fatigue, Denies fever(s), Denies frequent falls, Denies poor appetite, Denies snoring, Denies stops breathing during sleep, Denies weakness, Denies weight gain and Denies weight loss Eyes Denies loss of vision ENT Denies dizziness and Denies hearing loss Card Denies chest pain, Denies claudication, Denies leg edema, Denies lightheadedness, Denies palpitations, Denies dyspnea, Denies dyspnea on exertion and Denies orthopnea Resp Denies cough, Denies excessive phlegm production, Denies dyspnea, Denies dyspnea on exertion, Denies snoring and Denies wheezing GI Denies abdominal pain, Denies hematochezia, Denies change in bowel habits, Denies nausea and Denies vomiting Denies dysuria and Denies urinary frequency Musc Denies arthralgias, Denies muscle weakness, Denies numbness and Denies other (frequent falls) Skin/Breast Denies nail changes and Denies rash Neuro Denies Abnormal speech present, Denies dizziness, Denies frequent falls, Denies loss of vision, Denies memory loss, Denies numbness and Denies weakness Psych Denies depression and Denies memory loss Endo Denies fatigue and Denies palpitations Dave/Lymph Reports easy bruising and Reports other (anemia) Aller/Immun Denies wheezing Physical Exam Vital Signs: Last Vital Signs Pulse 72 02/10/23 14:47 BP 116/70 02/10/23 14:47 BMI result Body Mass Index 33.1 GENERAL APPEARANCE: in no acute distress, pleasant. NECK: no carotid bruit, no jugular venous distention. SKIN: no suspicious lesions, warm and dry. HEART: no murmurs, regular rate and rhythm. LUNGS: clear to auscultation bilaterally. ABDOMEN: soft, nontender. EXTREMITIES: no edema. PERIPHERAL PULSES: equal. NEUROLOGIC: No gross deficits, AAO X 3 Neuro Speech: No Abnormal speech present Assessment & Plan Assessment & Plan (1) Stable angina: Code(s): I20.8 - Other forms of angina pectoris Plan 57-year-old gentleman is here for follow-up. He has stable angina. Blood pressure control is good. He is under lot of stress and unfortunately lost his job recently. He has some atypical chest pains which are nonexertional. During exertion he has no symptoms. I have reassured him currently. Blood pressure control is good. Continue same medications. Follow up with us in 6 months. Coding Level of Care Code Est Pt Level 3 (81866) Diagnoses Stable angina I20.8
== END 2023-02-10 15:19 | disposition home or self-care (01) ==
PROVIDERS: Visit Provider Internal Medicine Cardiovascular Disease
DX: I20.8 Other forms of angina pectoris (principal)
CPT/HCPCS: 99213

== ENCOUNTER → 2023-02-10 14:34 | Outpatient (BNVA) | payer BC, SELFPAY | PROVIDERS: Visit Provider Internal Medicine Cardiovascular Disease ==

== ENCOUNTER 2023-05-19 07:38 | Outpatient (REF) | payer OTHER, SELFPAY ==
[2023-05-21 20:24] LABS: TS Negative Control Passed; TS Panel A 0; TS Panel B 0; TS Positive Control Passed; TSpotTB Negative (Negative)
== END 2023-05-19 07:39 | disposition home or self-care (01) ==
LOC: HO.LAB 07:38
PROVIDERS: Visit Provider Internal Medicine
DX: Z11.1 Encounter for screening for respiratory tuberculosis (principal)
CPT/HCPCS: 36415; 86481

== ENCOUNTER 2023-06-23 21:23 | Emergency (ER) | payer OTHER, SELFPAY ==
--- NOTE | 2023-06-23 | ECG_ITS ---
Test Reason : CHEST PAIN Blood Pressure : / mmHG Vent. Rate : 081 BPM Atrial Rate : 081 BPM P-R Int : 164 ms QRS Dur : 080 ms QT Int : 368 ms P-R-T Axes : 054 003 049 degrees QTc Int : 427 ms Normal sinus rhythm Normal ECG When compared with ECG of 16-SEP-2022 23:43, No significant change was found Referred By: Generic ED Physician Electronically Signed By:WES WOODRUFF
[2023-06-23 21:32] VITALS: BP 128/82; PULSE 83; RESP 20; TEMP 36.6; O2SAT 98; BMI 33.9
[2023-06-23 21:49] LABS: MANUAL DIFF FLAG NO
[2023-06-23 21:50] LABS: Basophils Absolute Auto 0.1 X10*3/uL (0.0-0.2); Basophils Percent Auto 0.8 % (0-2); Eosinophils Absolute Auto 0.4 X10*3/uL (0.0-0.4); Hematocrit 43.2 % (42.0-52.0); Hemoglobin 15.2 g/dl (14.0-18.0); Imm Gran Abs Auto 0.03 X10*3/uL (0.00-0.03); Imm Gran Pct Auto 0.3 % (0.0-0.4); Lymphocytes Absolute Auto 1.7 X10*3/uL (1.2-4.9); Lymphocytes Percent Auto 18.2 % (20-40); Mean Corpuscular HGB Conc 35.2 g/dl (31.0-36.0); Mean Corpuscular Hemoglobin 30.5 pg (27.0-33.0); Mean Corpuscular Volume 86.6 fL (80.0-98.0); Mean Platelet Volume 8.2 fL (9.4-12.4); Monocytes Absolute Auto 0.7 X10*3/uL (0.1-1.2); Monocytes Percent Auto 7.6 % (2-11); Neutrophils Absolute Auto 6.4 x10*3/uL (2.0-8.3); Neutrophils Percent Auto 69.1 % (45-73); Platelet Count 223 X10*3/uL (160-400); Red Blood Count 4.99 X10*6/uL (4.60-5.80); Red Cell Distribution Width 12.3 % (11.0-16.0); White Blood Count 9.2 X10*3/uL (4.8-10.8)
[2023-06-23 22:04] LABS: Anion Gap 13 (12-20); Blood Urea Nitrogen 15 mg/dL (9-16); Calcium 9.1 mg/dL (8.4-10.2); Carbon Dioxide 26 mmol/L (22-29); Chloride 105 mmol/L (96-108); Creatinine Clr Calc Pharmacy 94.6; Estimated Glomerular Filt Rate > 60; Glucose Random 161 mg/dL (60-115); Potassium 3.8 mmol/L (3.3-5.1); Sodium 140 mmol/L (135-145)
[2023-06-23 22:18] LABS: Troponin-I High Sensitivity < 2.7 ng/L (<3.5-35.0)
[2023-06-23 23:19] VITALS: BP 141/84; PULSE 76; RESP 18; O2SAT 93
--- NOTE | 2023-06-23 23:30 | ED_ITS ---
HPI - Chest Pain General Chief Complaint: Chest Pain Stated Complaint: chest pain Time Seen by Provider: 06/23/23 23:09 Source: patient Mode of arrival: ambulatory Limitations: no limitations History of Present Illness HPI narrative: Patient 57 years old with history of coronary disease status post multiple stents x4 last stent was placed in 06/20 patient has been doing good since then walks about 2 miles a day without any significant pain has not used any nitro for a while today after walking his dog felt left-sided chest pain going to the left arm started at 17:30 patient feel dull pain with intermittent radiation to the left arm no shortness , no diaphoresis Related Data Home Medications Medication Instructions Recorded Confirmed aspirin 81 mg tablet,delayed 81 mg PO DAILY 07/19/21 02/10/23 release insulin glargine 100 unit/mL (3 20 unit subcut DAILY 01/28/22 02/10/23 mL) subcutaneous pen (Lantus Solostar U-100 Insulin) Float: [place] PACK 1 packet PO DAILY 06/03/22 02/10/23 atorvastatin 80 mg tablet 80 mg PO BEDTIME 07/01/22 02/10/23 carvedilol 3.125 mg tablet 6.25 mg PO BID 07/01/22 02/10/23 nitroglycerin 0.4 mg sublingual 0.4 mg sublingual PRN 07/01/22 02/10/23 tablet clopidogrel 75 mg tablet 75 mg PO DAILY 08/07/22 02/10/23 Previous Rx's Medication Instructions Recorded lorazepam 0.5 mg tablet (Ativan) 0.5 mg PO BID PRN anxiety #10 tabs 06/11/22 amlodipine 2.5 mg tablet 2.5 mg PO DAILY #60 tabs 09/18/22 omeprazole 40 mg capsule,delayed 40 mg PO DAILY #60 caps 09/18/22 release ezetimibe 10 mg tablet (Zetia) 10 mg PO DAILY #60 tabs 06/09/23 isosorbide mononitrate 60 mg 60 mg PO QAM #30 tabs 06/24/23 tablet,extended release 24 hr nitroglycerin 0.4 mg sublingual 0.4 mg sublingual Q5M PRN chest 06/24/23 tablet pain #30 tabs Allergies Allergy/AdvReac Type Severity Reaction Status Date / Time dulaglutide [From [facility]] AdvReac Vomiting Verified 02/26/24 21:31 Review of Systems 2 Review of Systems: Yes all other systems are reviewed and are negative [facility] Past Medical History Medical History HLD (hyperlipidemia) HTN (hypertension) CAD (coronary artery disease) Surgical History History of appendectomy History of umbilical hernia repair History of neck surgery History of cardiac cath Family History Family History Mother HTN (hypertension) Father HTN (hypertension) Social History Social History Household Members: Spouse Housing: House Do you presently have visiting nurse or other home services: No Alcohol intake: never Patient Tobacco Use Status: Never used Tobacco Smoked in Last 30 Days: No Use of substances other than those prescribed or required for medical reasons: No Advance Directives: No Advance Directives Information Provided: No Physical Exam 2 Vital Signs: Vital Signs: Last Vital Signs Temp 97.8 F 06/23/23 21:32 Pulse 78 06/24/23 01:43 Resp 18 06/24/23 01:43 BP 135/72 06/24/23 01:43 Pulse Ox 97 06/24/23 01:43 O2 Del Method Room Air 06/24/23 01:43 BMI result Body Mass Index 33.9 Appearance: Alert. Oriented X3. No acute distress. Eyes: No pallor or icterus ENT: Pharynx normal. Oral Mucosa moist Neck: Normal inspection. Neck supple. CVS: Normal heart rate and rhythm. Pulses normal. Respiratory: No respiratory distress. Equal air entry bilateral, no wheezing/rales/rhonchi Abdomen: Soft and nontender. Bowel sounds are present, Skin: Skin warm and dry. Normal skin color. Normal skin turgor. Extremities: No lower extremity edema. No calf tenderness Neuro: Oriented X 3. No motor deficit. Medications Administered Discontinued Medications Generic Name Dose Route Start Last Admin Trade Name Freq PRN Reason Stop Dose Admin Nitroglycerin 1 inch 06/23/23 23:33 06/23/23 23:55 Nitroglycerin 2 % Oint 1 Gm Packet TRANSDERMA 06/23/23 23:34 1 inch ONCE ONE Administration Medical Decision Making Medical Decision Making [facility] Narrative: Patient with coronary disease status post stent placement comes with chest pain patient walks 2 miles without any significant pain which he did today also after coming home patient noticed the pain while walking patient denied any significant pain no EKG changes 2 sets of cardiac enzymes negative will discharge patient home advised to follow with cork compounder will give him long- acting nitrates Imdur and nitroglycerin sublingually as needed patient is chest pain-free at the time of discharge Differential Diagnosis Differential Diagnoses: The differential diagnosis associated with the presentation includes ACS/non-STEMI/Micro vascular angina Admission/Observation Consideration of admission/observation: Escalation of care including admission/observation considered Lab Data [facility] Lab Attestation statement: I reviewed the patient's lab results. 06/23/23 21:42 06/23/23 21:42 Labs: Lab Results 06/23/23 06/24/23 Range/Units 21:42 00:13 WBC 9.2 (4.8-10.8) X10*3/uL RBC 4.99 (4.60-5.80) X10*6/uL Hgb 15.2 (14.0-18.0) g/dl Hct 43.2 (42.0-52.0) % MCV 86.6 (80.0-98.0) fL MCH 30.5 (27.0-33.0) pg MCHC 35.2 (31.0-36.0) g/dl RDW 12.3 (11.0-16.0) % Plt Count 223 (160-400) X10*3/uL MPV 8.2 L (9.4-12.4) fL Immature Gran % (Auto) 0.3 (0.0-0.4) % Neut % (Auto) 69.1 (45-73) % Lymph % (Auto) 18.2 L (20-40) % Young % (Auto) 7.6 (2-11) % Eos % (Auto) 4.0 (0-4) % Baso % (Auto) 0.8 (0-2) % Lymph # (Auto) 1.7 (1.2-4.9) X10*3/uL Young # (Auto) 0.7 (0.1-1.2) X10*3/uL Eos # (Auto) 0.4 (0.0-0.4) X10*3/uL Baso # (Auto) 0.1 (0.0-0.2) X10*3/uL Abs Immat Gran (auto) 0.03 (0.00-0.03) X10*3/uL Absolute Neuts (auto) 6.4 (2.0-8.3) x10*3/uL Absolute Nucleated RBC 0.000 (0.0-0.012) X10*3/uL Nucleated RBC % (auto) 0.0 (0.0-0.2) /100WBC Sodium 140 (135-145) mmol/L Potassium 3.8 (3.3-5.1) mmol/L Chloride 105 (96-108) mmol/L Carbon Dioxide 26 (22-29) mmol/L Anion Gap 13 (12-20) BUN 15 (9-16) mg/dL Creatinine 0.93 (0.5-1.4) mg/dL Estim Creat Clear Calc 94.6 Estimated GFR > 60 Random Glucose 161 H (60-115) mg/dL Calcium 9.1 (8.4-10.2) mg/dL Troponin I High Sens < 2.7 < 2.7 (<3.5-35.0) ng/L Independent Interpretation I performed an independent interpretation of an: EKG Interpretation: Normal sinus rhythm heart rate 81 beats per minute normal interval normal axis no acute ST T wave changes no acute ischemia Discharge Plan Discharge Clinical Impression: Chest pain Patient Disposition: Home, Self-Care Instructions: Chest Pain (ED) Additional Instructions: Continue medication as prescribed by your cork compounder and follow up with him for further evaluation including stress test Take nitroglycerin under the tongue as needed for chest pain Report to ER if chest pain persists Prescriptions: New isosorbide mononitrate 60 mg tablet extended release 24 hr 60 mg PO QAM Qty: 30 0RF nitroglycerin 0.4 mg tablet, sublingual 0.4 mg sublingual Q5M PRN (Reason: chest pain) Qty: 30 0RF Rx Instructions: do not exceed 3 doses per episode No Action ezetimibe [Zetia] 10 mg tablet 10 mg PO DAILY Qty: 60 5RF Float: [place] PACK 1 packet PO DAILY lorazepam [Ativan] 0.5 mg tablet 0.5 mg PO BID PRN (Reason: anxiety) Qty: 10 0RF aspirin 81 mg tablet,delayed release (DR/EC) 81 mg PO DAILY insulin glargine [Lantus Solostar U-100 Insulin] 100 unit/mL (3 mL) insulin pen 20 unit subcut DAILY clopidogrel 75 mg tablet 75 mg PO DAILY carvedilol 3.125 mg tablet 6.25 mg PO BID atorvastatin 80 mg tablet 80 mg PO BEDTIME nitroglycerin 0.4 mg tablet, sublingual 0.4 mg sublingual PRN omeprazole 40 mg capsule,delayed release(DR/EC) 40 mg PO DAILY Qty: 60 3RF amlodipine 2.5 mg tablet 2.5 mg PO DAILY Qty: 60 3RF Interventions: ED Discharge Assessment Last Done: 06/24/23 01:41 Discharge Date/Time: 06/24/23 01:43
[2023-06-23] MEDS: Nitroglycerin 2 % Oint 1 GM Packet 1 INCH TRANSDERMA (23:55)
[2023-06-24 00:46] LABS: Troponin-I High Sensitivity < 2.7 ng/L (<3.5-35.0)
[2023-06-24 01:43] VITALS: BP 135/72; PULSE 78; RESP 18; O2SAT 97
== END 2023-06-24 01:43 | disposition home or self-care (01) ==
PROVIDERS: Emergency Provider Internal Medicine; PCP Internal Medicine
DX: R07.9 Chest pain, unspecified (principal); I25.10 Atherosclerotic heart disease of native coronary artery without angina pectoris; I10 Essential (primary) hypertension; Z95.818 Presence of other cardiac implants and grafts
CPT/HCPCS: 36415; 80048; 84484; 85025; 93005; 99283; 99284

== ENCOUNTER → 2023-06-23 21:28 | Outpatient (BNV) | payer OTHER, SELFPAY | PROVIDERS: Emergency Provider Internal Medicine; PCP Internal Medicine; Visit Provider Internal Medicine | DX: R07.9 Chest pain, unspecified (principal) | CPT/HCPCS: 93010 ==

== ENCOUNTER 2023-08-22 12:09 | Outpatient (AMB) | payer OTHER, SELFPAY ==
[2023-08-22 12:11] VITALS: BP 126/72; PULSE 86; BMI 34.1
--- NOTE | 2023-08-22 12:11 | A.OFFVIS_ITS ---
Vital Signs 08/22/23 12:11 Height 5 ft 6 in Weight 211 lb 3.245 oz BMI 34.1 BP 126/72 Blood Pressure Location Lt brachial Position Sitting Pulse 86 Pulse Source Pulse Oximeter Intake Visit Reasons: 6 mth f/up Hospital Unit Clerk Required: No Accompanied by: Self / Same As Patient [facility]ies [facility] Adverse Reaction (Verified 06/23/23 21:31) Vomiting Medication List - Last Reconciled 08/22/23 by Clifford Myrick MD amlodipine 2.5 mg PO DAILY aspirin 81 mg PO DAILY atorvastatin 80 mg PO BEDTIME carvedilol 6.25 mg PO BID clopidogrel 75 mg PO DAILY ezetimibe (Zetia) 10 mg PO DAILY lorazepam (Ativan) 0.5 mg PO BID PRN nitroglycerin 0.4 mg sublingual Q5M PRN omeprazole 40 mg PO DAILY HPI Comments Details: Pleasant 57 year gentleman here for follow-up. He previously had LAD and RCA PCI. Recently presented with NSTEMI underwent circumflex PCI. He did well after the PCI and was doing well with cardiac rehabilitation. He returns now because he went to the emergency department for chest pain. He said he had twinges on the left side of his chest and then persistent chest discomfort in his left pectoral area which radiated to the shoulder and left arm. These symptoms are present for 6 hours before he went to the emergency department. His high sensitive troponin level was normal. His ECG was also normal. He spent another 8 hours emergency department and then was discharged home. He is quite frustrated because he has been getting the same pain is randomly. He walks his dog daily and is in the [place] going [place] at times. He is saying that off and on he has felt similar pains while going up but this is not a consistent symptoms. Since his PCI has had similar episodes requiring ER visit and blood workup a few times. His biomarkers have never been abnormal. His ECG is completely normal. We discussed that his chest pain could be from other causes and we started omeprazole and low-dose amlodipine thinking that he may have acid reflux with esophageal spasm. He returns for follow-up and has been feeling much better. His symptoms have improved significantly after addition of omeprazole amlodipine. He is walking his dog and has been doing well. 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 02/10/23: He returns for follow-up. Occasionally he gets left-sided chest discomfort. This is nonexertional. When he is walking his dog he has no symptoms. He is under lot of stress because he got laid off from his job. he has applied for new job and is waiting. He is saying that he gets angry very easily these days. He is asking if any of the medications are playing a role in that. 08/22/23: He returns for follow-up. He had a mechanical fall while he was in the garage hitting left side of his chest as well as hip. There is bruising over the left hip area but no bruising on the chest but he has been experiencing chest pain since then. This is a reproducible left chest wall tenderness and it is pleuritic. Clearly musculoskeletal in origin. [facility] Medical History HLD (hyperlipidemia) HTN (hypertension) CAD (coronary artery disease) Surgical History History of appendectomy History of umbilical hernia repair History of neck surgery History of cardiac cath Family History Mother HTN (hypertension) Father HTN (hypertension) Social History Household Members: Spouse Housing: House Do you presently have visiting nurse or other home services: No Alcohol intake: never Patient Tobacco Use Status: Never used Tobacco Review of Systems Const Denies chills, Denies fatigue, Denies fever(s), Denies frequent falls, Denies weakness, Denies weight gain and Denies weight loss ENT Denies dizziness Card Denies chest pain, Denies leg edema, Denies lightheadedness, Denies palpitations, Denies dyspnea and Denies dyspnea on exertion Resp Denies cough, Denies dyspnea and Denies dyspnea on exertion GI Denies hematochezia Musc Denies abnormal gait, Denies muscle weakness, Denies numbness, Denies radiating pain into limb and Denies tingling Neuro Denies abnormal gait, Denies dizziness, Denies frequent falls, Denies numbness, Denies tingling and Denies weakness Endo Denies fatigue and Denies palpitations Physical Exam Vital Signs: Last Vital Signs Pulse 86 08/22/23 12:11 BP 126/72 08/22/23 12:11 BMI result Body Mass Index 34.1 GENERAL APPEARANCE: in no acute distress, pleasant. NECK: no carotid bruit, no jugular venous distention. SKIN: no suspicious lesions, warm and dry. HEART: no murmurs, regular rate and rhythm. LUNGS: clear to auscultation bilaterally. Left-sided chest wall tenderness. ABDOMEN: soft, nontender. EXTREMITIES: no edema. PERIPHERAL PULSES: equal. NEUROLOGIC: No gross deficits, AAO X 3 Assessment & Plan Assessment & Plan (1) Rib pain on left side: Code(s): R07.81 - Pleurodynia Category: Medical (2) HLD (hyperlipidemia): Code(s): E78.5 - Hyperlipidemia, unspecified Category: Medical (3) Stable angina: Code(s): I20.8 - Other forms of angina pectoris Category: Medical Plan [age] year gentleman here for follow-up. He has history of coronary artery disease with previous PCI. Clinically stable and has stable angina currently. Blood pressure is well controlled. He had a mechanical fall and had left chest wall trauma. I will arrange chest x-ray to make sure he does not have any rib fractures. He clearly has exquisite tenderness on the left side of his chest. Taking medications regularly otherwise. No changes in medications required. Thank you for allowing me to participate in the care of your patient. Please feel free to contact me if you have any questions. Orders: Orders XR ribs BI min 4V w CXR1V Today R07.81 - Pleurodynia Coding Level of Care Code Est Pt Level 4 (87863) Diagnoses Rib pain on left side R07.81 HLD (hyperlipidemia) E78.5 Stable angina I20.8
== END 2023-08-22 12:37 | disposition home or self-care (01) ==
PROVIDERS: PCP Internal Medicine; Visit Provider Internal Medicine Cardiovascular Disease
DX: R07.81 Pleurodynia (principal); E78.5 Hyperlipidemia, unspecified; I20.89 Other forms of angina pectoris
CPT/HCPCS: 99214

== ENCOUNTER → 2023-08-22 12:09 | Outpatient (BNVA) | payer OTHER, SELFPAY | PROVIDERS: PCP Internal Medicine; Visit Provider Internal Medicine Cardiovascular Disease ==

== ENCOUNTER 2023-09-28 10:10 | Emergency (ER) | payer OTHER, SELFPAY ==
[2023-09-28 10:13] VITALS: BP 159/88; PULSE 78; RESP 20; TEMP 36.3; O2SAT 96; BMI 34.3
[2023-09-28 10:36] LABS: MANUAL DIFF FLAG NO
[2023-09-28 10:39] LABS: Basophils Absolute Auto 0.1 X10*3/uL (0.0-0.2); Basophils Percent Auto 0.5 % (0-2); Eosinophils Absolute Auto 0.1 X10*3/uL (0.0-0.4); Eosinophils Percent Auto 0.9 % (0-4); Hematocrit 43.2 % (42.0-52.0); Hemoglobin 15.2 g/dl (14.0-18.0); Imm Gran Abs Auto 0.04 X10*3/uL (0.00-0.03); Imm Gran Pct Auto 0.4 % (0.0-0.4); Lymphocytes Absolute Auto 0.9 X10*3/uL (1.2-4.9); Lymphocytes Percent Auto 8.9 % (20-40); Mean Corpuscular HGB Conc 35.2 g/dl (31.0-36.0); Mean Corpuscular Hemoglobin 30.9 pg (27.0-33.0); Mean Corpuscular Volume 87.8 fL (80.0-98.0); Mean Platelet Volume 8.7 fL (9.4-12.4); Monocytes Absolute Auto 0.5 X10*3/uL (0.1-1.2); Monocytes Percent Auto 4.6 % (2-11); Neutrophils Absolute Auto 8.8 x10*3/uL (2.0-8.3); Neutrophils Percent Auto 84.7 % (45-73); Platelet Count 208 X10*3/uL (160-400); Red Blood Count 4.92 X10*6/uL (4.60-5.80); Red Cell Distribution Width 12.1 % (11.0-16.0); White Blood Count 10.4 X10*3/uL (4.8-10.8)
[2023-09-28 11:10] LABS: Alanine Aminotransferase 34 U/L (0-40); Albumin Level 3.9 g/dL (3.5-5.0); Alkaline Phosphatase 84 U/L (39-117); Anion Gap 14 (12-20); Aspartate Amino Transferase 26 U/L (5-37); Bilirubin Direct 0.4 mg/dL (0.0-0.5); Bilirubin Total 0.9 mg/dL (0.0-1.0); Blood Urea Nitrogen 15 mg/dL (9-16); Calcium 9.1 mg/dL (8.4-10.2); Carbon Dioxide 23 mmol/L (22-29); Chloride 101 mmol/L (96-108); Creatinine Clr Calc Pharmacy 81.7; Estimated Glomerular Filt Rate > 60; Lipase 27 U/L (8-78); Potassium 4.6 mmol/L (3.3-5.1); Sodium 133 mmol/L (135-145); Total Protein 6.8 g/dL (6.5-8.0)
[2023-09-28 11:13] LABS: Glucose Random 365 mg/dL (60-115)
[2023-09-28 13:30] LABS: Appearance Urine Clear; Color Urine Yellow; Glucose Urine UA >=1000 mg/dL (Negative); Leukocyte Esterase Urine Negative (Negative); Nitrite Urine Negative (Negative); PH 6.5 (5.0-9.0); Specific Gravity - Urine >= 1.030 (1.005-1.025); UMIC TRIGGER UACC YES; Urine Blood Negative (Negative); Urine Ketones 15 mg/dL (Negative); Urine Protein Negative (Neg-Trace)
[2023-09-28 13:36] LABS: Bacteria Urine None Seen (None Seen); Hyaline Casts Urine 0-2 /LPF (0-2); RBC Urine 0-2 /HPF (0-2); Squamous Epithelial Cell Urine 0-2 /HPF (0-2); WBC Urine 0-5 /HPF (0-5)
== END 2023-09-28 20:36 | disposition left against medical advice (07) ==
LOC: HO.ED 20:34
PROVIDERS: Physician Assistant; Emergency Provider Emergency Medicine; PCP Internal Medicine
DX: R10.9 Unspecified abdominal pain (principal); R11.10 Vomiting, unspecified
CPT/HCPCS: 36415; 80048; 80076; 81001; 82010; 83690; 85025; 99282; 99283

== ENCOUNTER 2024-05-12 09:54 | Outpatient (AMB) | payer BC, SELFPAY ==
[2024-05-12 10:01] VITALS: BMI 34.3
--- NOTE | 2024-05-12 10:01 | MHC.OFFVIS ---
Vital Signs 05/12/24 10:01 Height 5 ft 6 in Weight 212 lb 8.41 oz BMI 34.3 Intake Visit Reasons: Bilateral shoulder pains Intake Note: Chase is a 58 year old right hand dominant male who presents with complaints of progressively worsening bilateral shoulder pains. He describes his pains as achy in nature. He has had cortisone injections in the past which gave him fairly good relief. He wishes to hold off on surgery if at all possible. He has tried Tylenol and aspirin which gave him mild relief. Allergies dulaglutide [From [facility]] Adverse Reaction (Verified 05/12/24 10:01) Vomiting Medication List - Last Reconciled 05/12/24 by Brandan Lebron MD amlodipine 2.5 mg PO DAILY aspirin 81 mg PO DAILY atorvastatin 80 mg PO BEDTIME carvedilol 6.25 mg PO BID clopidogrel 75 mg PO DAILY empagliflozin (Jardiance) 25 mg PO DAILY ezetimibe (Zetia) 10 mg PO DAILY insulin glargine (Lantus Solostar U-100 Insulin) units subcut lorazepam (Ativan) 0.5 mg PO BID PRN nitroglycerin 0.4 mg sublingual Q5M PRN PFSH Medical History HLD (hyperlipidemia) HTN (hypertension) CAD (coronary artery disease) Surgical History History of appendectomy History of umbilical hernia repair History of neck surgery History of cardiac cath Family History Mother HTN (hypertension) Father HTN (hypertension) Social History Household Members: Spouse Housing: House Do you presently have visiting nurse or other home services: No Alcohol intake: never Patient Tobacco Use Status: Never used Tobacco Physical Exam Vital Signs: BMI result Body Mass Index 34.3 Const Other: Well-nourished well-developed very friendly male awake alert and oriented x3 in no acute distress Extrem Other: Bilateral upper extremity examination shows good capillary refill, no skin lesions noted, normal sensation light touch Bilateral shoulder examination shows forward flexion to 170 degrees, external rotation is 60 degrees, internal rotation level L2, 4+ out of 5 strength with supraspinatus testing, positive impingement signs, no instability Office Procedures AMB Joint Injection/Aspiration Joint Injection/Aspiration Primary Site: left shoulder Prep: site was prepped using aseptic technique Injected: 40 mg of, DepoMedrol and 1% plain lidocaine Procedure: The patient tolerated the procedure well Coding - Large joint Procedure code (CPT) selection complete AMB Joint Injection/Aspiration Joint Injection/Aspiration Primary Site: right shoulder Prep: site was prepped using aseptic technique Injected: 40 mg of, DepoMedrol and 1% plain lidocaine Procedure: The patient tolerated the procedure well Coding 18255 - Large joint Procedure code (CPT) selection complete Results Reviewed Results Reviewed: X-rays of the patient's bilateral shoulder show severe acromioclavicular joint narrowing, type 2 acromion, no acute bony abnormalities Assessment & Plan Assessment & Plan (1) Impingement syndrome of left shoulder: Code(s): M75.42 - Impingement syndrome of left shoulder Category: Medical (2) Impingement of right shoulder: Code(s): M25.811 - Other specified joint disorders, right shoulder Category: Medical Plan Mr. Stearns presents with bilateral shoulder pains due to impingement syndrome and possible rotator cuff tearing. The risks and benefits of bilateral shoulder cortisone injections were discussed at length with the patient. The patient wished to proceed. He tolerated the injections well. He will continue with his activity modifications. He will follow up with me on an as-needed basis should his symptoms not plateau at an unacceptable level over the next few months. Feel free to call me at any time should questions regarding his orthopedic management arise. I spent 22 minutes in reviewing the patient's records and imaging studies, seeing the patient and documenting in the medical record. Orders: Orders XR shoulder RT min 2V Today M25.511 - Pain in right shoulder AMB Joint Injection/Aspiration Today M75.42 - Impingement syndrome of left shoulder XR shoulder LT min 2V Today M25.512 - Pain in left shoulder AMB Joint Injection/Aspiration Today M25.811 - Other specified joint disorders, right shoulder Coding Level of Care Code Est Pt Level 3 (15473) Complex EM visit Add On G2211 Diagnoses Impingement syndrome of left shoulder M75.42 Impingement of right shoulder M25.811 CPT Codes Coding - Large joint: 36549 - Large joint ([id number]) Coding - 08943 Large joint: 74504 - Large joint ([id number])
--- OUTSIDE RECORDS SUMMARY | 2024-05-12 10:55 | XMS_ITS | Data Portability ---
Author Organization [facility], Main Office Address [address] [facility] [address] [place] [address] Care Team Providers Care Grapple Crew Leader Name Role Phone ROBERT GOTTI Primary Care Provider PARKER DALLAS Police Reserves Commander JONNIE LANDRY Orthopedic Surgeon CHRIS MYRICK Investigative Shopper TATI WHALEY Neurosurgeon JERRY THOMPSON Referring Provider TONE URBAN Referring Provider [phone] Assessment Encounter Date Assessment Date Assessment LastModified by Organization Details LastModified Time 07/11/2022 07/11/2022 This service was provided using telemedicine. Patient consented to video & audio visit Patient was located in the [facility]. Provider was located in the office. No other persons participated in the telemedicine visit except for the patient unless otherwise indicated here. Total time of visit was 20 minutes. kelly Not available 07/11/2022 10:12:30 Plan of Treatment Reminders Order Date Submit Date Provider Last Modified By Organization Details Last Modified Time Details Appointments None recorde d. Lab CMP, serum or plasma 2022 023 [email or web address] [facility], [address], [address], [place], [address], 4 10:25:20 HbA1c (hemogl obin A1c), blood 2022 023 [email or web address] [facility], [address], [address], [place], [address], 4 10:25:20 HbA1c (hemogl obin A1c), blood 2023 024 [facility], [address] [facility], [facility] [address], [place], [address], 4 16:06:57 CMP, serum or plasma 2023 024 [facility], [address] [facility], [facility] [address], [place], [address], 4 16:06:54 CBC w/ auto diff 2023 024 [facility], [address] [facility], [facility] [address], [place], [address], 4 16:06:53 albumin /creati nine, mass ratio, urine 2023 024 [facility], [address] [facility], [facility] [address], [place], [address], 4 16:06:56 LDL, direct, serum 2023 024 [facility], [address], [place], [address], 4 16:06:55 Referral gastroe nterolo gist referra l - Intermi ttent upper abdomin al pain not related to exertio n and sometim es wakes him at night. Has been going on since the [facility] of the year and each episode can last for 4-12 hours. No n/v or f/c. Spreads to the rest of his abdomen . He has never had a colon cancer screeni . 2023 024 [facility], [address], [place], [address], 4 14:05:03 Procedures None recorde d. Surgeries None recorde d. Imaging XR, foot - Injury to left foot after a fall. Pain mostly at the top of left foot. 2023 024 [facility] (Ultrasound), [address] [place] [address], [address], 4 09:24:06 XR, wrist, 3 or more view - Fell injurin g right wrist; r/o fractur e 2023 024 [facility] (Ultrasound), [address] [place] [address], [address], 4 09:24:06 CT, abdomen , w/ contras t - Intermi ttent upper abdomin al pain not related to exertio n and sometim es wakes him at night. Has been going on since the beginni ng of the year and each episode can last for 4-12 hours. No n/v or f/c. Spreads to the rest of his abdomen . 2023 024 jeff [facility] (Ultrasound), [address] [place] [address], [address], 4 12:01:33 Medication Orders Mounjar o 2.5 mg/0.5 mL subcuta neous pen injecto r 2023 acennerao [facility], [address] [place], [address], 4 10:06:53 Jardian ce 25 mg tablet 2023 TAPPAN [facility], [address] [place], [address], 4 12:29:38 Lantus Solosta r U-100 Insulin 100 unit/mL (3 mL) subcuta neous pen 2023 TAPPAN [facility], [address] [place], [address], 12:29:38 Patient TargetsNo targets recorded. Patient Instructions Encounter Date Encounter Id Patient Instructions Last Modified By Organization Details Last Modified Time 07/11/2022 [id number] learning about type 2 diabetes [email or web address] Not available 07/11/2022 10:32:19 type 2 diabetes: care instructions [email or web address] Not available 07/11/2022 10:32:19 high blood pressure: care instructions [email or web address] Not available 07/11/2022 10:32:19 learning about high blood pressure acennerazzo Not available 07/11/2022 10:32:19 high cholesterol: care instructions acennerazzo Not available 07/11/2022 10:32:19 09/16/2022 [id number] During [facility] f/u call, all current and discharge medications (OTC, herbal therapies, supplements) reviewed and reconciled with patient, including potential side effects, drug interactions, instructions, and the consequences of not taking medication. Reviewed potential barriers to medication adherence, such as side effects from medication or cost of medication. gilbert Not available 10/17/2022 07:52:10 02/21/2023 [id number] learning about type 2 diabetes acennerazzo Not available 02/21/2023 09:40:37 type 2 diabetes: care instructions acennerazzo Not available 02/21/2023 09:40:37 high blood pressure: care instructions acennerazzo Not available 02/21/2023 10:45:26 learning about high blood pressure acennerazzo Not available 02/21/2023 10:45:26 high cholesterol: care instructions acennerazzo Not available 02/21/2023 10:45:26 08/20/2023 [id number] golfer's elbow: exercises acennerazzo Not available 08/20/2023 15:45:29 golfer's elbow: care instructions acennerazzo Not available 08/20/2023 15:45:29 learning about type 2 diabetes acennerazzo Not available 08/20/2023 15:34:53 type 2 diabetes: care instructions acennerazzo Not available 08/20/2023 15:34:53 high blood pressure: care instructions acennerazzo Not available 08/20/2023 17:59:02 learning about high blood pressure lailalara Not available 08/20/2023 17:59:02 Medications (OTC, herbal therapies, supplements) reviewed and reconciled with patient and or caregiver, including potential side effects, drug interactions, instructions, and the consequences of not taking medication. Reviewed potential barriers to medication adherence, such as side effects from medication or cost of medication. Not available 08/20/2023 14:54:52 10/04/2023 [id number] type 2 diabetes: care instructions kelly Not available 10/04/2023 12:29:33 Reason for Referral Sales Marketing Coordinator Referral for Upper abdominal pain Intermittent upper abdominal pain not related to exertion and sometimes wakes him at night. Has been going on since the beginning of the year and each episode can last for 4-12 hours. No n/v or f/c. Spreads to the rest of his abdomen. He has never had a colon cancer screening. Referring Physician: Robert Gotti, Family Medicine, Encounter Date: 10/04/2023 Results Created Date Observation Date Name Description Value Unit Range Abnormal Flag Note LastModifiedBy Organization Detail LastModifiedTime 01/08/2023 COLOG UARD cologuard result Cancel led - Order d not applic able Not Available [facility] (Cologuard Orders Only) [address], [place], [address], 01/08/2023 10:35:58 08/11/19 23 08/10/2022 ANTI- HEPAT ITIS C results Dupli joon order cance lled via inter face Not Available [facility] [address] [place], [address], 08/10/2022 08:10:51 08/11/19 23 08/10/2022 COMPR EHENS ARYAN METAB OLIC PANL glucose 142 mg/dL (70-99 ) high Not Available [facility] [address] [place], [address], 08/10/2022 10:19:43 08/11/19 23 08/10/2022 COMPR EHENS ARYAN METAB OLIC PANL BUN 20 mg/dL (6-20) Not Available [facility] [address] [place], [address], 08/10/2022 10:19:43 08/11/19 23 08/10/2022 COMPR EHENS ARYAN METAB OLIC PANL creatinine 1.1 mg/dL (0.7-1 .2) Not Available [facility] [place], [address], 08/10/2022 10:19:43 08/11/19 23 08/10/2022 COMPR EHENS ARYAN METAB OLIC PANL sodium 141 mmol/ L (133-1 45) Not Available [facility] [address] [place], [address], 08/10/2022 10:19:43 08/11/19 23 08/10/2022 COMPR EHENS ARYAN METAB OLIC PANL potassium 4.8 mmol/ L (3.6-5 .2) Not Available [facility] [address] [place], [address], 08/10/2022 10:19:43 08/11/19 23 08/10/2022 COMPR EHENS ARYAN METAB OLIC PANL chloride 106 mmol/ L (98-10 7) Not Available [facility] [place], [address], 08/10/2022 10:19:43 08/11/19 23 08/10/2022 COMPR EHENS ARYAN METAB OLIC PANL bicarbonate 26 mmol/ L (22-29 ) Not Available [facility] [place], [address], 08/10/2022 10:19:43 08/11/19 23 08/10/2022 COMPR EHENS ARYAN METAB OLIC PANL anion gap 9 (4-17) Not Available [facility] [place], [address], 08/10/2022 10:19:43 08/11/19 23 08/10/2022 COMPR EHENS ARYAN METAB OLIC PANL albumin 4.2 gm/dL (3.4-4 .8) Not Available [facility] [address] [place], [address], 08/10/2022 10:19:43 08/11/19 23 08/10/2022 COMPR EHENS ARYAN METAB OLIC PANL calcium 9.1 mg/dL (8.6-1 0.5) Not Available [facility] [address] [place], [address], 08/10/2022 10:19:43 08/11/19 23 08/10/2022 COMPR EHENS ARYAN METAB OLIC PANL bilirubin,to bucky 0.6 mg/dL (0-1.2 ) Not Available [facility] [address] [place], [address], 08/10/2022 10:19:43 08/11/19 23 08/10/2022 COMPR EHENS ARYAN METAB OLIC PANL total protein 6.6 gm/dL (6.2-8 .2) Not Available [facility] [place], [address], 08/10/2022 10:19:43 08/11/19 23 08/10/2022 COMPR EHENS ARYAN METAB OLIC PANL Ag ratio 1.8 Not Available [facility] [address] [place], [address], 08/10/2022 10:19:43 08/11/19 23 08/10/2022 COMPR EHENS ARYAN METAB OLIC PANL AST 24 U/L (0-40) Not Available [facility] [address] [place], [address], 08/10/2022 10:19:43 08/11/19 23 08/10/2022 COMPR EHENS ARYAN METAB OLIC PANL alk phos 64 U/L (40-12 9) Not Available [facility] [address] [place], [address], 08/10/2022 10:19:43 08/11/19 23 08/10/2022 COMPR EHENS ARYAN METAB OLIC PANL ALT 27 U/L (0-41) Not Available [facility] [address] [place], [address], 08/10/2022 10:19:43 08/11/19 23 08/10/2022 COMPR EHENS ARYAN METAB OLIC PANL estimated GFR creatinine 81 mL/mi n/1.7 3_M2 Creat inine based estim ated glome rular filtr ation (eGFR ) in adult s is calcu lated using the Natio nal Kidne y Found ation recom ilana d 2020 CKD-E PI equat ion. Estim ates GFR from serum creat inine , age and sex. Not Available [facility] [place], [address], 08/10/2022 10:19:43 08/11/19 23 08/10/2022 LIPID PANEL cholesterol, total 84 mg/dL (<200) Not Available [facility] [address] [place], [address], 08/10/2022 10:19:44 08/11/19 23 08/10/2022 LIPID PANEL triglyceride 53 mg/dL (<150) Not Available [facility] [address] [place], [address], 08/10/2022 10:19:44 08/11/19 23 08/10/2022 LIPID PANEL HDL chol 34 mg/dL (>39) low Not Available [facility] [address] [place], [address], 08/10/2022 10:19:44 08/11/19 23 08/10/2022 LIPID PANEL LDL cholesterol, calculated 39 mg/dL (0-130 ) Not Available [facility] [address] [place], [address], 08/10/2022 10:19:44 08/11/19 23 08/10/2022 LIPID PANEL non HDL cholesterol (calc) 50 mg/dL (<160) Not Available [facility] [address] [place], [address], 08/10/2022 10:19:44 08/11/19 23 08/10/2022 HEMOG LOBIN A1C hemoglobin A1C 6.8 % (4.0-5 .6) high MONIT ORING : In known diabe tic patie nts, hemog lobin A1c targe ts shoul d be discu ssed with healt h care provi antoine. DIAGN OSTIC USE: The Ameri can Diabe grayson Assoc iatio n (ADA) and the World Healt h Organ izati on (WHO) recom mend the use of HbA1c to diagn ose diabe grayson using a thres hold of 6.5%. Patie nts who have an HbA1c betwe en 5.7% and 6.4% are consi dered at incre ased risk for devel oping diabe grayson in the futdilma MALHOTRA ON: False ly low HbA1c resul ts may be obser owen in patie nts with hemol ytic anemi a, homoz ygous forms of abnor mal hemog lobin (e.g. SS, CC, SC), pregn adriana, recen t blood loss or hemog lobin F great er than 7%. Fruct osami ne may be used as an alter milo test in these cases . REFER ENCE: ADA: Stand ards of Medic al Care in Diabe grayson 2019, The Journ al of Clini micah and Appli ed Resea [facility] and Educa tion Volum e 43, Suppl ement 1 Not Available [facility] [address], [place], [address], 08/10/2022 10:37:01 08/11/19 23 08/10/2022 URINA RY MICRO ALBUM IN micro-albumi n <12.0 mg/L (<20) The urine micro album in test is desig aubrey to monit or renal funct ion. When scree aaron for Bence Godwin prote inuri a, urine elect ropho resis is recom ilana d. Not Available [facility] [address] [place], [address], 08/10/2022 10:47:49 08/11/19 23 08/10/2022 URINA RY MICRO ALBUM IN malb/creat ratio Unable to calcul ate mg/gm (0-20) Not Available [facility] [address] [place], [address], 08/10/2022 10:47:49 08/11/19 23 08/10/2022 URINA RY MICRO ALBUM IN urine creat for micro albumin 101.6 mg/dL Not Available [facility] [address] [place], [address], 08/10/2022 10:47:49 08/11/19 23 08/10/2022 ANTI- HEPAT ITIS C anti-hepatit is C (neg) normal NEGAT ARYAN Refer ence range : Negat aryan This test was perfo rmed on the Abbot t Archi tect immun oassa y syste m. Not Available [facility] [place], [address], 08/10/2022 12:40:20 10/02/19 24 10/03/2023 CBC WITH DIFFE RENTI AL/PL ATELE T WBC 6.6 x10e3 /uL 3.4-10 .8 Not Available [facility] ([facility]) [address] [place], [address], 10/03/2023 16:06:53 10/02/19 24 10/03/2023 CBC WITH DIFFE RENTI AL/PL ATELE T RBC 4.96 x10e6 /uL 4.14-5 .80 Not Available [facility] ([facility]) [address] [place], [address], 10/03/2023 16:06:53 10/02/19 24 10/03/2023 CBC WITH DIFFE RENTI AL/PL ATELE T hemoglobin 14.9 g/dL 13.0-1 7.7 Not Available [facility] ([facility]) [address] [place], [address], 10/03/2023 16:06:53 10/02/19 24 10/03/2023 CBC WITH DIFFE RENTI AL/PL ATELE T hematocrit 45.0 % 37.5-5 1.0 Not Available [facility] ([facility]) [address] [place], [address], 10/03/2023 16:06:53 10/02/19 24 10/03/2023 CBC WITH DIFFE RENTI AL/PL ATELE T MCV 91 fL 79-97 Not Available [facility] ([facility]) [address] [place], [address], 10/03/2023 16:06:53 10/02/19 24 10/03/2023 CBC WITH DIFFE RENTI AL/PL ATELE T MCH 30.0 pg 26.6-3 3.0 Not Available [facility] ([facility]) [address] [facility], [place], [address], 10/03/2023 16:06:53 10/02/19 24 10/03/2023 CBC WITH DIFFE RENTI AL/PL ATELE T MCHC 33.1 g/dL 31.5-3 5.7 Not Available [facility] ([facility]) [address] [place], [address], 10/03/2023 16:06:53 10/02/19 24 10/03/2023 CBC WITH DIFFE RENTI AL/PL ATELE T RDW 12.5 % 11.6-1 5.4 Not Available [facility] ([facility]) [address] [place], [address], 10/03/2023 16:06:53 10/02/19 24 10/03/2023 CBC WITH DIFFE RENTI AL/PL ATELE T platelets 239 x10e3 /uL 150-45 0 Not Available [facility] ([facility]) [address] [place], [address], 10/03/2023 16:06:53 10/02/19 24 10/03/2023 CBC WITH DIFFE RENTI AL/PL ATELE T neutrophils 71 % not estab. Not Available [facility] ([facility]) [address] [facility], [place], [address], 10/03/2023 16:06:53 10/02/19 24 10/03/2023 CBC WITH DIFFE RENTI AL/PL ATELE T lymphs 17 % not estab. Not Available [facility] ([facility]) [address] [facility], [place], [address], 10/03/2023 16:06:53 10/02/19 24 10/03/2023 CBC WITH DIFFE RENTI AL/PL ATELE T monocytes 7 % not estab. Not Available [facility] ([facility]) [address] [facility], [place], [address], 10/03/2023 16:06:53 10/02/19 24 10/03/2023 CBC WITH DIFFE RENTI AL/PL ATELE T eos 4 % not estab. Not Available [facility] ([facility]) [address] [facility], [place], [address], 10/03/2023 16:06:53 10/02/19 24 10/03/2023 CBC WITH DIFFE RENTI AL/PL ATELE T basos 1 % not estab. Not Available [facility] ([facility]) [address] [facility], [place], [address], 10/03/2023 16:06:53 10/02/19 24 10/03/2023 CBC WITH DIFFE RENTI AL/PL ATELE T immature cells ENROLLMENT MANAGER Not Available [facility] ([facility]) [address] [facility], [place], [address], 10/03/2023 16:06:53 10/02/19 24 10/03/2023 CBC WITH DIFFE RENTI AL/PL ATELE T neutrophils (absolute) 4.6 x10e3 /uL 1.4-7. 0 Not Available [facility] ([facility]) [address] [facility], [place], [address], 10/03/2023 16:06:53 10/02/19 24 10/03/2023 CBC WITH DIFFE RENTI AL/PL ATELE T lymphs (absolute) 1.1 x10e3 /uL 0.7-3. 1 Not Available [facility] ([facility]) [address] [facility], [place], [address], 10/03/2023 16:06:53 10/02/19 24 10/03/2023 CBC WITH DIFFE RENTI AL/PL ATELE T monocytes(ab solute) 0.5 x10e3 /uL 0.1-0. 9 Not Available [facility] ([facility]) [address] [place], [address], 10/03/2023 16:06:53 10/02/19 24 10/03/2023 CBC WITH DIFFE RENTI AL/PL ATELE T eos (absolute) 0.3 x10e3 /uL 0.0-0. 4 Not Available [facility] ([facility]) [address] [facility], [place], [address], 10/03/2023 16:06:53 10/02/19 24 10/03/2023 CBC WITH DIFFE RENTI AL/PL ATELE T baso (absolute) 0.1 x10e3 /uL 0.0-0. 2 Not Available [facility] ([facility]) [address] [place], [address], 10/03/2023 16:06:53 10/02/19 24 10/03/2023 CBC WITH DIFFE RENTI AL/PL ATELE T immature granulocytes 0 % not estab. Not Available [facility] ([facility]) [address] [place], [address], 10/03/2023 16:06:53 10/02/19 24 10/03/2023 CBC WITH DIFFE RENTI AL/PL ATELE T immature grans (abs) 0.0 x10e3 /uL 0.0-0. 1 Not Available [facility] ([facility]) [address] [facility], [place], [address], 10/03/2023 16:06:53 10/02/19 24 10/03/2023 CBC WITH DIFFE RENTI AL/PL ATELE T NRBC ENROLLMENT MANAGER Not Available [facility] ([facility]) [address] [facility], [place], [address], 10/03/2023 16:06:53 10/02/19 24 10/03/2023 CBC WITH DIFFE RENTI AL/PL ATELE T hematology comments: ENROLLMENT MANAGER Not Available [facility] ([facility]) [address] [facility], [place], [address], 10/03/2023 16:06:53 10/02/19 24 10/03/2023 COMP. METAB OLIC PANEL (14) glucose 283 mg/dL 70-99 above high normal Not Available [facility] ([facility]) [address] [facility], [place], [address], 10/03/2023 16:06:54 10/02/19 24 10/03/2023 COMP. METAB OLIC PANEL (14) BUN 16 mg/dL 6-24 Not Available [facility] ([facility]) [address] [facility], [place], [address], 10/03/2023 16:06:54 10/02/19 24 10/03/2023 COMP. METAB OLIC PANEL (14) creatinine 1.01 mg/dL 0.76-1 .27 Not Available [facility] ([facility]) [address] [facility], [place], [address], 10/03/2023 16:06:54 10/02/19 24 10/03/2023 COMP. METAB OLIC PANEL (14) eGFR 86 mL/mi n/1.7 3 >59 Not Available [facility] ([facility]) [address] [facility] [place], [address], 10/03/2023 16:06:54 10/02/19 24 10/03/2023 COMP. METAB OLIC PANEL (14) BUN/creatini ne ratio 16 9-20 Not Available [facility] ([facility]) [address] [facility] [place], [address], 10/03/2023 16:06:54 10/02/19 24 10/03/2023 COMP. METAB OLIC PANEL (14) sodium 138 mmol/ L 134-14 4 Not Available [facility] ([facility]) [address] [facility] [place], [address], 10/03/2023 16:06:54 10/02/19 24 10/03/2023 COMP. METAB OLIC PANEL (14) potassium 4.6 mmol/ L 3.5-5. 2 Not Available [facility] ([facility]) [address] [facility] [place], [address], 10/03/2023 16:06:54 10/02/19 24 10/03/2023 COMP. METAB OLIC PANEL (14) chloride 103 mmol/ L 96-106 Not Available [facility] ([facility]) [address] [facility] [place], [address], 10/03/2023 16:06:54 10/02/19 24 10/03/2023 COMP. METAB OLIC PANEL (14) carbon dioxide, total 22 mmol/ L 20-29 Not Available [facility] ([facility]) [address] [facility] [place], [address], 10/03/2023 16:06:54 10/02/19 24 10/03/2023 COMP. METAB OLIC PANEL (14) calcium 8.8 mg/dL 8.7-10 .2 Not Available [facility] ([facility]) [address] [place], [address], 10/03/2023 16:06:54 10/02/19 24 10/03/2023 COMP. METAB OLIC PANEL (14) protein, total 6.3 g/dL 6.0-8. 5 Not Available [facility] ([facility]) [address] [place], [address], 10/03/2023 16:06:54 10/02/19 24 10/03/2023 COMP. METAB OLIC PANEL (14) albumin 3.9 g/dL 3.8-4. 9 Not Available [facility] ([facility]) [address] [place], [address], 10/03/2023 16:06:54 10/02/19 24 10/03/2023 COMP. METAB OLIC PANEL (14) globulin, total 2.4 g/dL 1.5-4. 5 Not Available [facility] ([facility]) [address] [place], [address], 10/03/2023 16:06:54 10/02/19 24 10/03/2023 COMP. METAB OLIC PANEL (14) A/G ratio 1.6 1.2-2. 2 Not Available [facility] ([facility]) [address] [place], [address], 10/03/2023 16:06:54 10/02/19 24 10/03/2023 COMP. METAB OLIC PANEL (14) bilirubin, total 0.4 mg/dL 0.0-1. 2 Not Available [facility] ([facility]) [address] [place], [address], 10/03/2023 16:06:54 10/02/19 24 10/03/2023 COMP. METAB OLIC PANEL (14) alkaline phosphatase 86 IU/L 44-121 Not Available [facility] ([facility]) [address] [place], [address], 10/03/2023 16:06:54 10/02/19 24 10/03/2023 COMP. METAB OLIC PANEL (14) AST (SGOT) 26 IU/L 0-40 Not Available [facility] ([facility]) [address] [facility], [place], [address], 10/03/2023 16:06:54 10/02/19 24 10/03/2023 COMP. METAB OLIC PANEL (14) ALT (SGPT) 30 IU/L 0-44 Not Available [facility] ([facility]) [address] [facility], [place], [address], 10/03/2023 16:06:54 10/02/19 24 10/03/2023 LDL JEFF STERO L (DIRE CT) LDL chol. (direct) 49 mg/dL 0-99 Not Available [facility] ([facility]) [address] [facility], [place], [address], 10/03/2023 16:06:55 10/02/19 24 10/03/2023 LDL JEFF STERO L (DIRE CT) comment: ENROLLMENT MANAGER Not Available [facility] ([facility]) [address] [place], [address], 10/03/2023 16:06:55 10/02/19 24 10/03/2023 ALBUM IN/CR EATIN INE RATIO ,URIN E creatinine, urine 117.0 mg/dL not estab. Not Available [facility] ([facility]) [address] [place], [address], 10/03/2023 16:06:56 10/02/19 24 10/03/2023 ALBUM IN/CR EATIN INE RATIO ,URIN E albumin, urine <3.0 ug/mL not estab. Not Available [facility] ([facility]) [address] [place], [address], 10/03/2023 16:06:56 10/02/19 24 10/03/2023 ALBUM IN/CR EATIN INE RATIO ,URIN E alb/creat ratio <3 mg/g_ creat 0-29 Aylin l: 0 - 29 Moder ately incre ased: 30 - 300 Sever medina incre ased: >300 Not Available [facility] ([facility]) [address] [place], [address], 10/03/2023 16:06:56 10/02/19 24 10/03/2023 HEMOG LOBIN A1C hemoglobin A1C 9.9 % 4.8-5. 6 above high normal Predi abete s: 5.7 - 6.4 Diabe grayson: >6.4 Glyce catarino contr ol for adult s with diabe grayson: <7.0 Not Available [facility] ([facility]) [address] [place], [address], 10/03/2023 16:06:57 10/02/19 24 10/10/2023 AMYLA SE amylase 48 U/L 31-110 Not Available [facility] ([facility]) [address] [place], [address], 10/10/2023 18:06:02 10/02/19 24 10/10/2023 LIPAS E lipase 40 U/L 13-78 Not Available [facility] ([facility]) [address] [place], [address], 10/10/2023 18:06:03 10/02/19 24 10/06/2023 SOHAM EN AUTHO RIZAT ION written authorizatio n Gita Gonzalez en Autho rizat ion Recei owen. Autho rizat ion recei owen from [facility] for [employer] Reque st on 10-05 Logge d by Anabell Banks Not Available [facility] ([facility]) [address] [place], [address], 10/10/2023 18:06:03 11/23/19 24 11/24/2023 CBC WITH DIFFE RENTI AL/PL ATELE T WBC 8.0 x10e3 /uL 3.4-10 .8 normal Not Available [facility] ([facility]) [address] [facility], [place], [address], 11/27/2023 14:06:48 11/23/19 24 11/24/2023 CBC WITH DIFFE RENTI AL/PL ATELE T RBC 5.20 x10e6 /uL 4.14-5 .80 normal Not Available [facility] ([facility]) [address], [place], [address], 11/27/2023 14:06:48 11/23/19 24 11/24/2023 CBC WITH DIFFE RENTI AL/PL ATELE T hemoglobin 15.9 g/dL 13.0-1 7.7 normal Not Available [facility] ([facility]) [address] [place], [address], 11/27/2023 14:06:48 11/23/19 24 11/24/2023 CBC WITH DIFFE RENTI AL/PL ATELE T hematocrit 47.7 % 37.5-5 1.0 normal Not Available [facility] ([facility]) [address] [place], [address], 11/27/2023 14:06:48 11/23/19 24 11/24/2023 CBC WITH DIFFE RENTI AL/PL ATELE T MCV 92 fL 79-97 normal Not Available [facility] ([facility]) [address] [place], [address], 11/27/2023 14:06:48 11/23/19 24 11/24/2023 CBC WITH DIFFE RENTI AL/PL ATELE T MCH 30.6 pg 26.6-3 3.0 normal Not Available [facility] ([facility]) [address] [place], [address], 11/27/2023 14:06:48 11/23/19 24 11/24/2023 CBC WITH DIFFE RENTI AL/PL ATELE T MCHC 33.3 g/dL 31.5-3 5.7 normal Not Available [facility] ([facility]) [address] [facility], [place], [address], 11/27/2023 14:06:48 11/23/19 24 11/24/2023 CBC WITH DIFFE RENTI AL/PL ATELE T RDW 12.7 % 11.6-1 5.4 Not Available [facility] ([facility]) [address] [facility], [place], [address], 11/27/2023 14:06:48 11/23/19 24 11/24/2023 CBC WITH DIFFE RENTI AL/PL ATELE T platelets 263 x10e3 /uL 150-45 0 normal Not Available [facility] ([facility]) [address], [place], [address], 11/27/2023 14:06:48 11/23/19 24 11/24/2023 CBC WITH DIFFE RENTI AL/PL ATELE T neutrophils 73 % not estab. normal Not Available [facility] ([facility]) [address], [place], [address], 11/27/2023 14:06:48 11/23/19 24 11/24/2023 CBC WITH DIFFE RENTI AL/PL ATELE T lymphs 17 % not estab. normal Not Available [facility] ([facility]) [address] [facility] [address], [place], [address], 11/27/2023 14:06:48 11/23/19 24 11/24/2023 CBC WITH DIFFE RENTI AL/PL ATELE T monocytes 6 % not estab. normal Not Available [facility] ([facility]) [address] [facility] [address], [place], [address], 11/27/2023 14:06:48 11/23/19 24 11/24/2023 CBC WITH DIFFE RENTI AL/PL ATELE T eos 3 % not estab. normal Not Available [facility] ([facility]) [address] [facility], [place], [address], 11/27/2023 14:06:48 11/23/19 24 11/24/2023 CBC WITH DIFFE RENTI AL/PL ATELE T basos 1 % not estab. normal Not Available [facility] ([facility]) [address] [facility], [place], [address], 11/27/2023 14:06:48 11/23/19 24 11/24/2023 CBC WITH DIFFE RENTI AL/PL ATELE T immature cells ENROLLMENT MANAGER Not Available [facility] ([facility]) [address] [facility], [place], [address], 11/27/2023 14:06:48 11/23/19 24 11/24/2023 CBC WITH DIFFE RENTI AL/PL ATELE T neutrophils (absolute) 5.8 x10e3 /uL 1.4-7. 0 normal Not Available [facility] ([facility]) [address] [facility] [address], [place], [address], 11/27/2023 14:06:48 11/23/19 24 11/24/2023 CBC WITH DIFFE RENTI AL/PL ATELE T lymphs (absolute) 1.4 x10e3 /uL 0.7-3. 1 normal Not Available [facility] ([facility]) [address] [place], [address], 11/27/2023 14:06:48 11/23/19 24 11/24/2023 CBC WITH DIFFE RENTI AL/PL ATELE T monocytes(ab solute) 0.5 x10e3 /uL 0.1-0. 9 normal Not Available [facility] ([facility]) [address] [place], [address], 11/27/2023 14:06:48 11/23/19 24 11/24/2023 CBC WITH DIFFE RENTI AL/PL ATELE T eos (absolute) 0.3 x10e3 /uL 0.0-0. 4 normal Not Available [facility] ([facility]) [address] [facility], [place], [address], 11/27/2023 14:06:48 11/23/19 24 11/24/2023 CBC WITH DIFFE RENTI AL/PL ATELE T baso (absolute) 0.1 x10e3 /uL 0.0-0. 2 normal Not Available [facility] ([facility]) [address] [facility], [place], [address], 11/27/2023 14:06:48 11/23/19 24 11/24/2023 CBC WITH DIFFE RENTI AL/PL ATELE T immature granulocytes 0 % not estab. Not Available [facility] ([facility]) [address] [place], [address], 11/27/2023 14:06:48 11/23/19 24 11/24/2023 CBC WITH DIFFE RENTI AL/PL ATELE T immature grans (abs) 0.0 x10e3 /uL 0.0-0. 1 Not Available [facility] ([facility]) [address] [place], [address], 11/27/2023 14:06:48 11/23/19 24 11/24/2023 CBC WITH DIFFE RENTI AL/PL ATELE T NRBC ENROLLMENT MANAGER Not Available [facility] ([facility]) [address] [place], [address], 11/27/2023 14:06:48 11/23/19 24 11/24/2023 CBC WITH DIFFE RENTI AL/PL ATELE T hematology comments: ENROLLMENT MANAGER Not Available [facility] ([facility]) [address] [place], [address], 11/27/2023 14:06:48 11/23/19 24 11/24/2023 COMP. METAB OLIC PANEL (14) glucose 168 mg/dL 70-99 above high normal Not Available [facility] ([facility]) [address] [facility] [place], [address], 11/27/2023 14:06:49 11/23/19 24 11/24/2023 COMP. METAB OLIC PANEL (14) BUN 17 mg/dL 6-24 normal Not Available [facility] ([facility]) [address] [facility] [place], [address], 11/27/2023 14:06:49 11/23/19 24 11/24/2023 COMP. METAB OLIC PANEL (14) creatinine 1.04 mg/dL 0.76-1 .27 normal Not Available [facility] ([facility]) [address] [facility] [place], [address], 11/27/2023 14:06:49 11/23/19 24 11/24/2023 COMP. METAB OLIC PANEL (14) eGFR 62 mL/mi n/1.7 3 >59 normal Not Available [facility] ([facility]) [address] [place], [address], 11/27/2023 14:06:49 11/23/19 24 11/24/2023 COMP. METAB OLIC PANEL (14) BUN/creatini ne ratio 16 9-20 normal Not Available [facility] ([facility]) [address] [place], [address], 11/27/2023 14:06:49 11/23/19 24 11/24/2023 COMP. METAB OLIC PANEL (14) sodium 139 mmol/ L 134-14 4 normal Not Available [facility] ([facility]) [address] [place], [address], 11/27/2023 14:06:49 11/23/19 24 11/24/2023 COMP. METAB OLIC PANEL (14) potassium 4.5 mmol/ L 3.5-5. 2 normal Not Available [facility] ([facility]) [address] [place], [address], 11/27/2023 14:06:49 11/23/19 24 11/24/2023 COMP. METAB OLIC PANEL (14) chloride 105 mmol/ L 96-106 normal Not Available [facility] ([facility]) [address] [place], [address], 11/27/2023 14:06:49 11/23/19 24 11/24/2023 COMP. METAB OLIC PANEL (14) carbon dioxide, total 23 mmol/ L 20-29 normal Not Available [facility] ([facility]) [address] [place], [address], 11/27/2023 14:06:49 11/23/19 24 11/24/2023 COMP. METAB OLIC PANEL (14) calcium 8.8 mg/dL 8.7-10 .2 normal Not Available [facility] ([facility]) [address] [place], [address], 11/27/2023 14:06:49 11/23/19 24 11/24/2023 COMP. METAB OLIC PANEL (14) protein, total 6.5 g/dL 6.0-8. 5 normal Not Available [facility] ([facility]) [address] [place], [address], 11/27/2023 14:06:49 11/23/19 24 11/24/2023 COMP. METAB OLIC PANEL (14) albumin 4.0 g/dL 3.8-4. 9 normal Not Available [facility] ([facility]) [address] [place], [address], 11/27/2023 14:06:49 11/23/19 24 11/24/2023 COMP. METAB OLIC PANEL (14) globulin, total 2.5 g/dL 1.5-4. 5 Not Available [facility] ([facility]) [address] [place], [address], 11/27/2023 14:06:49 11/23/19 24 11/24/2023 COMP. METAB OLIC PANEL (14) bilirubin, total 0.2 mg/dL 0.0-1. 2 normal Not Available [facility] ([facility]) [address] [facility], [place], [address], 11/27/2023 14:06:49 11/23/19 24 11/24/2023 COMP. METAB OLIC PANEL (14) alkaline phosphatase 82 IU/L 44-121 normal Not Available [facility] ([facility]) [address] [facility], [place], [address], 11/27/2023 14:06:49 11/23/19 24 11/24/2023 COMP. METAB OLIC PANEL (14) AST (SGOT) 19 IU/L 0-40 normal Not Available [facility] ([facility]) [address] [facility], [place], [address], 11/27/2023 14:06:49 11/23/19 24 11/24/2023 COMP. METAB OLIC PANEL (14) ALT (SGPT) 20 IU/L 0-44 normal Not Available [facility] ([facility]) [address] [facility], [place], [address], 11/27/2023 14:06:49 11/23/19 24 11/25/2023 URINA LYSIS , COMPL ETE specific gravity TNP Test not perfo rmed. No urine speci men recei owen. Not Available [facility] ([facility]) [address] [facility], [place], [address], 11/27/2023 14:06:50 11/23/19 24 11/25/2023 URINA LYSIS , COMPL ETE pH TNP Test not perfo rmed Not Available [facility] ([facility]) [address] [facility] [address], [place], [address], 11/27/2023 14:06:50 11/23/19 24 11/25/2023 URINA LYSIS , COMPL ETE urine-color ENROLLMENT MANAGER Not Available [facility] ([facility]) [address] [facility] [address], [place], [address], 11/27/2023 14:06:50 11/23/19 24 11/25/2023 URINA LYSIS , COMPL ETE appearance ENROLLMENT MANAGER Not Available [facility] ([facility]) [address] [facility], [place], [address], 11/27/2023 14:06:50 11/23/19 24 11/25/2023 URINA LYSIS , COMPL ETE WBC esterase ENROLLMENT MANAGER Not Available [facility] ([facility]) [address] [facility] [address], [place], [address], 11/27/2023 14:06:50 11/23/19 24 11/25/2023 URINA LYSIS , COMPL ETE protein TNP Test not perfo rmed Not Available [facility] ([facility]) [address] [facility] [address], [place], [address], 11/27/2023 14:06:50 11/23/19 24 11/25/2023 URINA LYSIS , COMPL ETE glucose TNP Test not perfo rmed Not Available [facility] ([facility]) [address] [facility] [address], [place], [address], 11/27/2023 14:06:50 11/23/19 24 11/25/2023 URINA LYSIS , COMPL ETE ketones TNP Test not perfo rmed Not Available [facility] ([facility]) [address] [facility] [address], [place], [address], 11/27/2023 14:06:50 11/23/19 24 11/25/2023 URINA LYSIS , COMPL ETE occult blood ENROLLMENT MANAGER Not Available [facility] ([facility]) [address] [facility] [address], [place], [address], 11/27/2023 14:06:50 11/23/19 24 11/25/2023 URINA LYSIS , COMPL ETE bilirubin ENROLLMENT MANAGER Not Available [facility] ([facility]) [address] [facility] [address], [place], [address], 11/27/2023 14:06:50 11/23/19 24 11/25/2023 URINA LYSIS , COMPL ETE urobilinogen ,semi-qn ENROLLMENT MANAGER Not Available [facility] ([facility]) [address] [facility], [place], [address], 11/27/2023 14:06:50 11/23/19 24 11/25/2023 URINA LYSIS , COMPL ETE nitrite, urine ENROLLMENT MANAGER Not Available [facility] ([facility]) [address] [facility] [address], [place], [address], 11/27/2023 14:06:50 11/23/19 24 11/25/2023 URINA LYSIS , COMPL ETE microscopic examination ENROLLMENT MANAGER Not Available [facility] ([facility]) [address] [facility] [address], [place], [address], 11/27/2023 14:06:50 11/23/19 24 11/25/2023 URINA LYSIS , COMPL ETE microscopic examination ENROLLMENT MANAGER Not Available [facility] ([facility]) [address] [facility] [address], [place], [address], 11/27/2023 14:06:50 11/23/19 24 11/24/2023 LIPID PANEL cholesterol, total 97 mg/dL 100-19 9 below low normal Not Available [facility] ([facility]) [address] [facility] [place], [address], 11/27/2023 14:06:51 11/23/19 24 11/24/2023 LIPID PANEL triglyceride s 89 mg/dL 0-149 normal Not Available [facility] ([facility]) [address] [facility] [place], [address], 11/27/2023 14:06:51 11/23/19 24 11/24/2023 LIPID PANEL HDL cholesterol 34 mg/dL >39 below low normal Not Available [facility] ([facility]) [address] [place], [address], 11/27/2023 14:06:51 11/23/19 24 11/24/2023 LIPID PANEL VLDL cholesterol micah 18 mg/dL 5-40 Not Available [facility] ([facility]) [address] [place], [address], 11/27/2023 14:06:51 11/23/19 24 11/24/2023 LIPID PANEL LDL chol calc ([facility]) 45 mg/dL 0-99 Not Available [facility] ([facility]) [address] [place], [address], 11/27/2023 14:06:51 11/23/19 24 11/24/2023 LIPID PANEL LDL calc comment: ENROLLMENT MANAGER Not Available [facility] ([facility]) [address] [place], [address], 11/27/2023 14:06:51 11/23/19 24 11/27/2023 ALBUM IN/CR EAT RATIO , RANDO M UR creatinine, urine TNP mg/dL Test not perfo rmed. No urine speci men recei owen. Not Available [facility] ([facility]) [address] [place], [address], 11/27/2023 14:06:51 11/23/19 24 11/27/2023 ALBUM IN/CR EAT RATIO , RANDO M UR albumin, urine TNP Test not perfo rmed Not Available [facility] ([facility]) [address] [place], [address], 11/27/2023 14:06:51 11/23/19 24 11/27/2023 ALBUM IN/CR EAT RATIO , RANDO M UR alb/creat ratio ENROLLMENT MANAGER Not Available [facility] ([facility]) [address] [place], [address], 11/27/2023 14:06:51 11/23/19 24 11/24/2023 DYLAN+L IPASE amylase 54 U/L 31-110 normal Not Available [facility] ([facility]) [address] [facility] [address], [place], [address], 11/27/2023 14:06:52 11/23/19 24 11/24/2023 DYLAN+L IPASE lipase 34 U/L 13-78 normal Not Available [facility] ([facility]) [address] [facility] [address], [place], [address], 11/27/2023 14:06:52 11/23/19 24 11/25/2023 HEMOG LOBIN A1C hemoglobin A1C 8.4 % 4.8-5. 6 above high normal Predi abete s: 5.7 - 6.4 Diabe grayson: >6.4 Glyce catarino contr ol for adult s with diabe grayson: <7.0 Not Available [facility] ([facility]) [address] [place], [address], 11/27/2023 14:06:53 11/23/19 24 11/25/[address] PROBL EM request problem TNP Test not perfo rmed. No urine speci men recei owen. TEST: 81055 2 Urina lysis , Compl ete Not Available [facility] ([facility]) [address] [place], [address], 11/27/2023 14:06:54 11/23/19 24 11/27/[address] PROBL EM request problem TNP Test not perfo rmed. No urine speci men recei owen. TEST: 00345 7 Album in/Cr eat Ratio , Rando m Ur Not Available [facility] ([facility]) [address] [place], [address], 11/27/2023 14:06:54 01/02/20 23 12/31/2022 MRI, cervi micah spine , w/o contr ast No observ ation record ed. [facility] [address] [facility], [place], [address], 01/01/2023 18:20:37 Result Notes None recorded. Problems Name Problem SNOMED Code Status Onset Date Resolution Date Notes Provider Name and Address Organization Details Recorded Time Blood chemistr y outside referenc e range 252596644 Completed 201212/06/2013 RECORDED 07/31/19 13 10:36AM BY NEFTALI CASTRO MA, ANNOTATI ON/ADDEN DUM Not Available [facility] 4 05:29:55 Abnormal findings on diagnost ic imaging of lung [id number] Completed 201212/06/2013 IMPRESSI ON: ? FOREIGN BODY PROJECTI NG OVER CERVICAL TRACHEA, RECOMMEN DATION FOR CERVICAL SOFT TISSUE FILM TO EVAL; RECORDED 03/03/20 13 10:37AM BY SHADIA ZAVALA MA, NII ON/ADDEN DUM Not Available [facility] 4 05:29:55 Loss of appetite 34790510 Completed 201212/06/2013 RECORDED 07/31/19 13 10:36AM BY NEFTALI CASTRO MA, ANNOTATI ON/ADDEN DUM Not Available [facility] 4 05:29:55 Pneumoni a 832205874 Completed 201212/06/2013 RECORDED 03/03/20 13 10:38AM BY SHADIA ZAVALA MA, JASONATI ON/ADDEN DUM Not Available [facility] 4 05:29:55 Cough [id number] Completed 201312/06/2013 IMPRESSI ON: WILL TX FOR SUSPECTE D CAP; RECORDED 05/21/19 14 1:10PM BY IRVIN JORDAN MA, JASONATI ON/ADDEN DUM Caryl moreno MA - [facility] 8 15:00:57 Indigest ion 396236457 Completed 200712/06/2013 RESOLVED DATE: 09/09/19 08; RECORDED 09/09/19 08 4:16PM BY ROBERT RÍOS MD, ANNOTATI ON/ADDEN DUM Not Available [facility] 4 05:29:55 Impotenc e of organic origin Completed 201112/06/2013 RECORDED 12/17/19 12 12:49PM BY JORDIN GAMEZ I ANNOTATI ON/ADDEN DUM Not Available [facility] 4 05:29:55 Glucose level outside referenc e range 913424148 Completed 201312/06/2013 IMPRESSI ON: LIKELY IS DIABETIC BUT NEED PLASMA GLUCOSE OVER 200 WITH DIABETES SXS (HE DOES HAVE THESE). WILL AWAIT A1C TO CONFIRM DX BUT START TREATMEN T NOW. EXTENSIV E COUNSELI NG ABOUT PATHOPHY S, TREATMEN T, ETC ABOUT DIABETES GIVEN. HE WAS HESITANT TO START MEDICATI ON BUT IS WILLING TO TRY IT. ONCE LABS BACK WILL DO DIABETES EDUCATIO N REFERRAL AND GLUCOMET ER ORDER; RECORDED 06/21/19 14 8:57AM BY JORDIN GAMEZ I ANNOTATI ON/ADDEN DUM Not Available [facility] 4 05:29:55 Gout 31973291 Completed 200812/06/2013 RECORDED 11/02/19 09 10:01AM BY MARU MARK, ANNOTATI ON/ADDEN DUM Not Available [facility] 4 05:29:55 Headache 42341359 Completed 200812/06/2013 RECORDED 11/02/19 09 8:13AM BY NEFTALI CASTRO MA, ANNOTATI ON/ADDEN DUM Not Available [facility] 4 05:29:55 Influenz a vaccine needed [id number] 06 Completed 201112/06/2013 DATE: 05/09/19 12; RECORDED 12/17/19 12 12:49PM BY JASON ALVAREZATI ON/ADDEN DUM Not Available [facility] 4 05:29:55 Administ ration of bacteria l and viral vaccine Completed 200812/06/2013 RECORDED 11/02/19 09 2:11PM BY MARU LYON, OFFICE VISIT Not Available [facility] 4 05:29:55 Hand joint pain 303947948 Completed 200812/06/2013 RECORDED 11/02/19 09 8:13AM BY NEFTALI CASTRO MA, ANNOTATI ON/ADDEN DUM Not Available [facility] 4 05:29:55 Joint pain in ankle and foot Completed 201112/06/2013 RECORDED 12/17/19 12 12:49PM BY JORDIN GAMEZ I ANNOTATI ON/ADDEN DUM Not Available [facility] 4 05:29:55 Shoulder joint pain 381827776 Completed 201112/06/2013 RECORDED 12/17/19 12 12:49PM BY JORDIN GAMEZ I ANNOTATI ON/ADDEN DUM Not Available [facility] 4 05:29:56 Pain in limb 26972359 Completed 201112/06/2013 RECORDED 12/17/19 12 12:48PM BY JASON ALVAREZATI ON/ADDEN DUM Not Available [facility] 4 05:29:56 Psychose xual dysfunct ion associat ed with inhibite d libido 796283319 Completed 201112/06/2013 RECORDED 12/17/19 12 12:48PM BY JORDIN GAMEZ I ANNOTATI ON/ADDEN DUM Not Available [facility] 4 05:29:56 Adult health examinat ion Completed 201112/06/2013 RECORDED 12/17/19 12 12:48PM BY JASON ALVAREZATI ON/ADDEN DUM Not Available [facility] 4 05:29:56 Increase d frequenc y of urinatio n 730210850 Completed 201312/06/2013 RECORDED 06/21/19 14 8:57AM BY JORDIN GAMEZ I ANNOTATI ON/ADDEN DUM Not Available [facility] 4 05:29:56 Type 2 diabetes mellitus 01521308 Completed 03/09/2014 Robert Gotti MD [address], [place], [address] , [facility] 4 16:01:09 Shoulder joint pain 469901968 Completed 08/21/2017 Caryl New MA null, [facility] 8 15:01:16 Anterior knee pain 042365973 Completed 08/21/2017 Caryl New MA null, [facility] 8 15:01:14 Type 2 diabetes mellitus 54135435 Active Not Available [facility] 4 17:49:47 Medial epicondy litis 46935398 Active Not Available [facility] 4 17:49:47 Foot pain 66078901 Completed 08/21/2017 Caryl New MA null, [facility] 8 15:01:00 Gout 43833743 Active Not Available [facility] 4 17:49:47 Secondar y erectile dysfunct ion 651134717 Active Not Available [facility] 4 17:49:47 Cough 95037573 Completed 08/21/2017 Caryl New MA null, [facility] 8 15:00:57 Chronic cough 05440855 Completed 08/21/2017 Caryl New MA null, [facility] 8 15:01:05 Wheezing 78941227 Completed 08/21/2017 Caryl najera MA null, [facility] 8 15:01:02 Chronic pharyngi tis 998984 Active Not Available [facility] 4 17:49:47 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 Also has 75% stenosis of RCA. Treated medicall y. In 2022: Second LA. S/p stent placemen t to distal LCx and OM2. Not Available [facility] 4 17:49:47 Hyperlip idemia 41161400 Active 2018 Not Available [facility] 4 17:49:47 Pain of right shoulder joint 73276614527 326387 Active 2018 [facility]; Followed by [facility] Has chosen surgery to be done end of 2020. Not Available [facility] 4 17:49:47 Angina pectoris 456807231 Active 2021 Stable; followed by cardiolyle gy Not Available [facility] 4 17:49:47 History of SARS-CoV -2 [id number] 7753577 Active 2021 Not Available [facility] 4 17:49:47 Neck pain 32819155 Active 2021 Not Available [facility] 4 17:49:47 Uncontro lled type 2 diabetes mellitus 892533912 Active 2023 IMPRESSI ON: WE WILL DO LABS AGAIN IN 2 MONTHS. I ENCOURAG ED TAKING BOTH DOSES OF METFORMI N BUT IT SOUNDS LIKE HE WANTS TO STAY ON JUST 1 PILL DAILY AND MONITOR HIS SUGARS.; RECORDED 08/13/19 14 3:55PM BY JORDIN GAMEZ I, OFFICE VISIT Started with [facility]o September 2023. Robert Gotti MD [address] [facility] [address], [place], [address] , [facility] 4 12:55:55 Blood chemistr y outside referenc e range 593927108 Completed 201211/09/2013 RECORDED 07/31/19 13 10:36AM BY NEFTALI CASTRO MA, ANNOTATI ON/ADDEN DUM Not Available [facility] 4 14:24:07 Abnormal findings on diagnost ic imaging of lung 305334186 Completed 201211/09/2013 IMPRESSI ON: ? FOREIGN BODY PROJECTI NG OVER CERVICAL TRACHEA, RECOMMEN DATION FOR CERVICAL SOFT TISSUE FILM TO EVAL; RECORDED 03/03/20 13 10:37AM BY SHADIA ZAVALA MA, ANNOTATI ON/ADDEN DUM Not Available [facility] 4 14:24:07 Loss of appetite 84531802 Completed 201211/09/2013 RECORDED 07/31/19 13 10:36AM BY NEFTALI CASTRO MA, ANNOTATI ON/ADDEN DUM Not Available [facility] 4 14:24:07 Patient status finding 826752734 Completed 201312/15/2013 RECORDED 08/13/19 14 3:55PM BY JORDIN GAMEZ I, OFFICE VISIT Robert Gotti MD [address] [facility] [address], [place], [address] , [facility] 4 17:26:01 Patient status finding [id number] Completed 201211/09/2013 RECORDED 07/28/19 13 11:35AM BY LUZ MARINA MARQUEZ MA, ANNOTATI ON/ADDEN DUM Not Available [facility] 4 14:24:07 Benign paroxysm al position al vertigo 633985940 Active Not Available [facility] 4 17:49:47 Pneumoni a 037111690 Completed 201211/09/2013 RECORDED 03/03/20 13 10:38AM BY SHADIA ZAVALA MA, ANNOTATI ON/ADDEN DUM Not Available [facility] 4 14:24:07 Cough 19867246 Completed 201311/09/2013 IMPRESSI ON: WILL TX FOR SUSPECTE D CAP; RECORDED 05/21/19 14 1:10PM BY IRVIN JORDAN MA, ANNOTATI ON/ADDEN DUM Caryl New MA [facility], [facility] 8 15:00:57 Type 2 diabetes mellitus without complica tion 549472094 Completed 05/23/2018 Robert Gotti MD [address] [facility] [address], [place], [address] , [facility] 9 10:45:21 Uncontro lled type 2 diabetes mellitus 823055945 Completed 201312/15/2013 IMPRESSI ON: WE WILL DO LABS AGAIN IN 2 MONTHS. I ENCOURAG ED TAKING BOTH DOSES OF METFORMI N BUT IT SOUNDS LIKE HE WANTS TO STAY ON JUST 1 PILL DAILY AND MONITOR HIS SUGARS.; RECORDED 08/13/19 14 3:55PM BY JORDIN GAMEZ I, OFFICE VISIT Robert Gotti MD [address], [place], [address] , [facility] 4 12:55:55 Indigsarah beth tomas [id number] Completed 200711/09/2013 RESOLVED DATE: 09/09/19 08; RECORDED 09/09/19 08 4:16PM BY ROBERT RÍOS MD, ANNOTATI ON/ADDEN DUM Not Available [facility] 4 14:24:08 Impotenc e of organic origin Completed 201111/09/2013 RECORDED 12/17/19 12 12:49PM BY JORDIN GAMEZ I, ANNOTATI ON/ADDEN DUM Not Available [facility] 4 14:24:08 Glucose level outside referenc e range [id number] Completed 201311/09/2013 IMPRESSI ON: LIKELY IS DIABETIC BUT NEED PLASMA GLUCOSE OVER 200 WITH DIABETES SXS (HE DOES HAVE THESE). WILL AWAIT A1C TO CONFIRM DX BUT START TREATMEN T NOW. EXTENSIV E COUNSELI NG ABOUT PATHOPHY S, TREATMEN T, ETC ABOUT DIABETES GIVEN. HE WAS HESITANT TO START MEDICATI ON BUT IS WILLING TO TRY IT. ONCE LABS BACK WILL DO DIABETES EDUCATIO N REFERRAL AND GLUCOMET ER ORDER; RECORDED 06/21/19 14 8:57AM BY JORDIN GAMEZ I ANNOTATI ON/ADDEN DUM Not Available [facility] 4 14:24:08 [facility] l hyperten nava [id number] Active Not Available [facility] 4 17:49:47 Essentia l hyperten nava 00930988 Completed 201211/09/2013 RECORDED 07/31/19 13 10:36AM BY NEFTALI CASTRO MA, ANNOTATI ON/ADDEN DUM Not Available [facility] 4 14:24:08 Gout [id number] Completed 200811/09/2013 RECORDED 11/02/19 09 10:01AM BY MARU MARK, ANNOTATI ON/ADDEN DUM Not Available [facility] 4 14:24:08 Headache 84819971 Completed 200811/09/2013 RECORDED 11/02/19 09 8:13AM BY NEFTALI CASTRO MA, ANNOTATI ON/ADDEN DUM Not Available [facility] 4 14:24:08 Transien t insomnia 020009795 Active Not Available [facility] 4 17:49:47 Influenz a vaccine needed [id number] 06 Completed 201111/09/2013 DATE: 05/09/19 12; RECORDED 12/17/19 12 12:49PM BY JASON ALVAREZATI ON/ADDEN DUM Not Available [facility] 4 14:24:08 Administ ration of bacteria l and viral vaccine Completed 200811/09/2013 RECORDED 11/02/19 09 2:11PM BY MARU LYON, OFFICE VISIT Not Available [facility] 4 14:24:09 Hand joint pain 994596046 Completed 200811/09/2013 RECORDED 11/02/19 09 8:13AM BY NEFTALI CASTRO MA, ANNOTATI ON/ADDEN DUM Not Available [facility] 4 14:24:09 Joint pain in ankle and foot Completed 201111/09/2013 RECORDED 12/17/19 12 12:49PM BY JASON ALVAREZATI ON/ADDEN DUM Not Available [facility] 4 14:24:09 Shoulder joint pain 839450465 Completed 201111/09/2013 RECORDED 12/17/19 12 12:49PM BY JASON ALVAREZATI ON/ADDEN DUM Not Available [facility] 4 14:24:09 Pain in limb 53909814 Completed 201111/09/2013 RECORDED 12/17/19 12 12:48PM BY JASON ALVAREZATI ON/ADDEN DUM Not Available [facility] 4 14:24:09 Psychose xual dysfunct ion associat ed with inhibite d libido 914435541 Completed 201111/09/2013 RECORDED 12/17/19 12 12:48PM BY JASON ALVAREZATI ON/ADDEN DUM Not Available [facility] 4 14:24:09 Adult health examinat ion Completed 201111/09/2013 RECORDED 12/17/19 12 12:48PM BY NII ALVAREZ ON/ADDEN DUM Not Available [facility] 4 14:24:09 Increase d frequenc y of urinatio n [id number] Completed 201311/09/2013 RECORDED 06/21/19 14 8:57AM BY NII ALVAREZ ON/ADDEN DUM Not Available [facility] 4 14:24:09 Notes:Some problems listed i n Documents: #[id number], #[id number], #[id number], #[id number], #[id number], #[id number] could not be added to this patient's chart. Please review these documents and add these problems to the patient's chart manually as needed. Problem Notes None recorded. Procedures Surgical History Date Name Laterality Status Provider Name and Address Organization Details Recorded Time 02/08/20 21 shoulder injection completed Nicolasa Mckeon [facility] 02/21/2021 09:19:35 08/19/19 19 Diabetic Foot Exam (Monofilament) completed Luz Marina Marquez MA [facility] 08/18/2018 16:12:37 07/21/19 19 catheterization completed Ericka Bowen [facility] 07/20/2018 15:41:08 06/18/19 19 Diabetic Foot Exam (Monofilament) completed Jordin Underwood [facility] 06/18/2018 09:12:04 06/05/19 19 Diabetic Foot Exam (Monofilament) completed Jordin Underwood [facility] 06/05/2018 15:29:59 09/20/19 18 Diabetic Foot Exam (Monofilament) completed Robert Gotti MD [address] [address], [place], [address], [facility] [place]20[place]2017 13:14:43 05/29/19 06 Neurosurgery completed Maryanne Traore [facility] 01/08/2022 14:22:22 08/27/19 05 Appendectomy completed Maryanne Traore MA [facility] 01/08/2022 14:22:22 12/28/19 01 Neurosurgery completed Jordin Underwood [facility] 01/30/2015 15:50:20 09/26/18 84 Hernia Repair completed Maryanne Traore MA [facility] 01/08/2022 14:22:22 10/26/18 66 Hernia Repair completed Jordin Underwood [facility] 01/30/2015 15:50:20 Imaging Results Imaging Date Name Status LastModified by Organiz ation Details LastModified Time 12/31/2022 MRI, cervical spine, w/o contrast completed [facility] [address] [place] [address], [place], [address], 01/01/2023 18:20:37 Procedure Notes None recorded. Medical Equipment None Reported. Allergies Allergen ID Allergen Name Allergen Category Reaction Reaction Severity Criticality Documentation Date Start Date Code Code System Note Provider Name and Address Organization Details Recorded Time 46739 metformin medicatio n diarrhea severe Not available 05/24/2018 6809 RxNorm Robert bermudez MD [address] [facility] [address], [place], [address], [facility] 9 09:15:53 54181 Trulicity medicatio n nausea severe Not available 10/27/2018 22725 96 RxNorm Carolin Watt PA-C [address], [place], [address], [facility] 9 16:34:54 5748 codeine / guaifenes in medicatio n Not available Not available Not available 11/09/20132013 64828 2 RxNorm Robert bermudez MD [address] [facility] [address], [place], [address], [facility] 6 10:24:26 Medications Name Sig Start Date Stop Date Status Note LastModified by Organization Details LastModified Time freestyle kit freedomfr eestyle freedom lite active Not Available Not Available Not Available freestyle grayson lite Test BS once daily 01/18 completed Not Available Not Available Not Available Toprol XL 200 mg tablet,ex tended release QD 05/03 completed RECORDED 05/03/19 10 8:13AM BY NEFTALI CASTRO MA, OFFICE VISIT; Not Available Not Available Not Available amoxicill in 500 mg capsule TAKE TWO CAPSULES BY MOUTH EVERY 8 HOURS FOR 7 DAYS 03/14 completed Not Available Not Available Not Available pioglitaz one 15 mg tablet Take 1 tablet every day by oral route for 30 days. 02/17 completed Not Available Not Available Not Available atorvasta tin 40 mg tablet Take 1 tablet every day by oral route at bedtime. 02/22 completed Not Available Not Available Not Available atorvasta tin 80 mg tablet TAKE ONE TABLET BY MOUTH EVERY DAY 2023 active Not Available Not Available Not Avai lable carvedilo l 6.25 mg tablet TAKE ONE TABLET BY MOUTH TWICE A DAY 2023 active Not Available Not Available Not Avai lable prednison e 10 mg tablet 5 daily for 3 days, then 4 daily for 3 days, then 3 daily for 3 days, the 2 daily for 3 days, the 1 daily for 3 days. 10/31 completed Not Available Not Available Not Available sildenafi l 50 mg tablet DAILY NEEDED TO TREAT ERECTILE DYSFUNCT ION 05/21 completed RECORDED 05/21/19 14 1:36PM BY IRVIN JORDAN MA, OFFICE VISIT; Not Available Not Available Not Available benzonata te 200 mg capsule Take 1 capsule 3 times a day by oral route for 10 days. 10/31 completed Not Available Not Available Not Available metoprolo l succinate ER 50 mg tablet,ex tended release 24 hr Take 1 tablet every day by oral route. 10/31 completed Not Available Not Available Not Available hydrocodo ne 5 mg-acetam inophen 325 mg tablet Take 1 tablet 3 times a day by oral route as directed for 7 days. 09/19 completed Not Available Not Available Not Available metoprolo l succinate ER 200 mg tablet,ex tended release 24 hr DAILY 04/07 completed RECORDED 04/07/20 12 4:44PM BY ROBERT RÍOS MD, ANNOTATI ON/ADDEN DUM; Not Available Not Available Not Available metoprolo l succinate ER 100 mg tablet,ex tended release 24 hr Take 1 tablet every day by oral route. 02/17 completed Not Available Not Available Not Available Zithromax Z-Lukasz 250 mg tablet QD 03/08 completed RECORDED 05/21/19 14 12:03PM BY SALVADOR VEGA PA-C, MEDICATI ON AUTO-MELLY CTIVATIO N;2PO QD FOR 1 DAY, THEN 1 QD FOR 4 DAYS. Not Available Not Available Not Available amlodipin e 2.5 mg tablet TAKE ONE TABLET BY MOUTH EVERY DAY active Not Available Not Available No t Available acetamino phen 300 mg-codein e 30 mg tablet TAKE 1 TABLET BY MOUTH EVERY 6 HOURS NEEDED 05/12 completed Not Available Not Available Not Available clopidogr el 75 mg tablet TAKE ONE TABLET BY MOUTH EVERY DAY active Not Available Not Available No t Available amlodipin e 5 mg tablet DAILY 2013 active RECORDED 07/09/19 14 12:26PM BY ROBERT RÍOS MD, REFILL REQUEST; Not Available Not Available Not Available valacyclo vir 500 mg tablet active Not Available Not Available No t Available sulfameth oxazole 800 mg-trimet hoprim 160 mg tablet TAKE 1 TABLET BY MOUTH EVERY 12 HOURS FOR 7 DAYS 05/12 completed Not Available Not Available Not Available omeprazol e 40 mg capsule,d elayed release TAKE ONE CAPSULE BY MOUTH EVERY DAY active Not Available Not Available No t Available aspirin 81 mg tablet,de layed release TAKE 1 TABLET BY MOUTH EVERY DAY 2024 active Not Available Not Available Not Avai lable tramadol 50 mg tablet Take 1-2 tablet(s ) three times per day by oral route as needed 10/31 completed Not Available Not Available Not Available sildenafi l 100 mg tablet 1 pill 1 hour before sexual activity 03/14 completed Not Available Not Available Not Available TobraDex 0.3 %-0.1 % eye ointment 03/05 completed Not Available Not Available Not Available amoxicill in 500 mg tablet Take 2 tablets every 8 hours by oral route for 7 days. 03/14 completed Not Available Not Available Not Available carvedilo l 3.125 mg tablet Take 2 tablets twice a day by oral route as directed . 07/01 completed changed to 6.25 dose. Not Available Not Available Not Available isosorbid e mononitra te ER 60 mg tablet,ex tended release 24 hr TAKE 1 TABLET BY MOUTH EVERY MORNING active NOT TAKING -DUE TO HEADACHE Not Available Not Available Not Available lorazepam 0.5 mg tablet Take 2 tablets twice a day by oral route as needed. active Not Available Not Available No t Available benzonata te 100 mg capsule TAKE ONE CAPSULE BY MOUTH THREE TIMES A DAY NEEDED FOR 10 DAYS 03/14 completed Not Available Not Available Not Available oseltamiv ir 75 mg capsule 05/22 completed Not Available Not Available Not Available lisinopri l 10 mg tablet TAKE ONE TABLET BY MOUTH EVERY DAY 06/12 completed per patient not taking Not Available Not Available Not Available metronida zole 0.75 % topical cream APPLY TO AFFECTED AREA TWICE A DAY 05/12 completed Not Available Not Available Not Available metoprolo l tartrate 50 mg tablet Take 1 tablet twice a day by oral route for 30 days. 05/30 completed Not Available Not Available Not Available nitroglyc venecia 0.4 mg sublingua l tablet PLEASE SEE ATTACHED FOR DETAILED DIRECTIO NS active Not Available Not Available No t Available Cheratuss in AC 10 mg-100 mg/5 mL oral liquid Take 10 mL every 4 hours by oral route. 10/31 completed Not Available Not Available Not Available levofloxa lorna 500 mg tablet DAILY 08/06 completed RECORDED 10/06/19 13 3:30PM BY SALVADOR VEGA PA-C, MEDICATI ON AUTO-MELLY CTIVATIO N; Not Available Not Available Not Available colchicin e 0.6 mg tablet Take 1 tablet twice a day by oral route for 10 days. 05/16 completed has a serious interact ion with carvedil ol. Not Available Not Available Not Available ondansetr on 4 mg disintegr ating tablet active Not Available Not Available Not Available metformin ER 500 mg tablet,ex tended release 24 hr active Not Available Not Available Not Available loratadin e 10 mg tablet Take 1 tablet every day by oral route for 30 days. 10/31 completed Not Available Not Available Not Available amoxicill in 875 mg-potass ium clavulana te 125 mg tablet TAKE 1 TABLET BY MOUTH EVERY 12 HOURS FOR 7 DAYS 09/26 completed Not Available Not Available Not Available albuterol (refill) 90 mcg/actua tion aerosol inhaler EVERY 4 HOURS PRN 04/02 completed RECORDED 05/21/19 14 12:03PM BY SALVADOR VEGA PA-C, MEDICATI ON AUTO-MELLY CTIVATIO N; Not Available Not Available Not Available azithromy lorna 500 mg tablet 08/07 completed Not Available Not Available Not Available ezetimibe 10 mg tablet TAKE ONE TABLET BY MOUTH EVERY DAY active Not Available Not Available No t Available Prilosec OTC 20 mg tablet,de layed release DAILY 02/23 completed RECORDED 02/24/20 07 8:31AM BY ROBERT RÍOS MD, MEDICATI ON AUTO-MELLY CTIVATIO N; Not Available Not Available Not Available metformin ER 500 mg tablet,ex tended release 24hr (osmotic) Take 1 tablet every day by oral route for 90 days. 2013 active Not Available Not Available Not Avai lable BD Ultra-Fin e Mini Pen Needle 31 gauge x 3/16 USE DIRECTED . 2023 active Not Available Not Available Not Avai lable Flovent HFA 110 mcg/actua tion aerosol inhaler 10/31 completed Not Available Not Available Not Available Guiatuss AT BEDTIME 08/03 completed RECORDED 10/06/19 13 3:30PM BY SALVADOR VEGA PA-C, MEDICATI ON AUTO-MELLY CTIVATIO N; Not Available Not Available Not Available Meclizine Hcl Chewable DAILY NEEDED FOR VERTIGO 05/07 completed RECORDED 05/07/19 13 9:28AM BY ROBERT RÍOS MD, MEDICATI ON AUTO-MELLY CTIVATIO N; Not Available Not Available Not Available ProAir HFA 90 mcg/actua tion aerosol inhaler Inhale 2 puffs every 4 hours by inhalati on route. 10/31 completed Not Available Not Available Not Available Lantus Solostar U-100 Insulin 100 unit/mL (3 mL) subcutane ous pen INJECT 40 UNITS SUBCUTAN EOUSLY ONCE A DAY AT BEDTIME FOR DIABETES active Not Available Not Available No t Available Brilinta 90 mg tablet 07/02 completed having dyspnea; started him on plavix Not Available Not Available Not Available Allergy Eye (ketotife n) 0.025 % (0.035 %) drops active Not Available Not Available Not Available Accu-Chek Sharron Plus test strips Take 1 strip 3 times a day by miscell. route for 90 days. 06/05 completed Not Available Not Available Not Available Accu-Chek Sharron Plus test strp DAILY 08/23 completed RECORDED 09/01/19 14 8:16AM BY EMERY ALVAREZ ON AUTO-MELLY CTIVATIO N; Not Available Not Available Not Available Accu-Chek FastClix Lancing Device kit Take 1 kit every day by miscell. route. 06/05 completed Not Available Not Available Not Available Accu-Chek FastClix Lancing Device 08/07 completed Not Available Not Available Not Available Accu-Chek FastClix Lancing Dev 08/07 completed Not Available Not Available Not Available Jardiance 25 mg tablet TAKE ONE TABLET BY MOUTH EVERY DAY active Not Available Not Available No t Available Trulicity 0.75 mg/0.5 mL subcutane ous pen injector Inject 0.5 mL every week by subcutan eous route. 02/17 completed Pt states that this meds made him sick Not Available Not Available Not Available Allergy Relief (fluticas one) 50 mcg/actua tion nasal spray,adriane pension Inhale 2 sprays every day by intranas al route. 10/31 completed Not Available Not Available Not Available Ozempic 0.25 mg or 0.5 mg (2 mg/1.5 mL) subcutane ous pen injector Inject 0.25 mg every week by subcutan eous route for 28 days, for diabetes 2. 08/19 completed Not Available Not Available Not Available FreeStyle Oj 14 Day Sensor kit 1 SENSOR DAILY FOR 14 DAYS active Not Available Not Available No t Available FreeStyle Oj 2 Saxon active patient aware we will no longer upload data from sensor, as he declines to pay the HNE deductib le applied to pt responsi bilty Not Available Not Available Not Available Mounjaro 2.5 mg/0.5 mL subcutane ous pen injector 10/03 completed Not Available Not Available Not Available FreeStyle Oj 3 Sensor device 1 SENSOR FOR 14 DAYS active Not Available Not Available No t Available Ozempic 0.25 mg or 0.5 mg (2 mg/3 mL) subcutane ous pen injector INJECT 0.25MG ONCE A WEEK FOR 28 DAYS 10/03 completed nausea Not Available Not Available Not Available Vitals Date Recorded Body height Provider Name an d Address Organization Details Last Updated DateTime 07/11/2022 167.64 cm Kathie Orantes MA [facility] 07/11/2022 09:40:09 Date Recorded Body height Body mass index (BMI) Body weight Heart rate Oxygen saturation Oxygen saturation in Arterial blood by Pulse oximetry Body temperature Systolic blood pressure Diastolic blood pressure Provider Name and Address Organization Details Last Updated DateTime 3 167.64 cm 33.7 kg/m2 86745.8 1 g 83 /min 97 % 97 % 97.6 [degF] 128 mm[Hg] 89 mm[Hg] Riri Alfredo MA [facility] 3 09:31:17 Date Recorded Body height Body mass index (BMI) Body weight Heart rate Oxygen saturation Oxygen saturation in Arterial blood by Pulse oximetry Body temperature Systolic blood pressure Diastolic blood pressure Provider Name and Address Organization Details Last Updated DateTime 4 167.64 cm 34.2 kg/m2 01743.5 8 g 97 /min 94 % 94 % 98.2 [degF] 152 mm[Hg] 99 mm[Hg] Riri Alfredo MA [facility] 4 15:06:09 Date Recorded Body height Body mass index (BMI) Body weight Heart rate Oxygen saturation Oxygen saturation in Arterial blood by Pulse oximetry Body temperature Systolic blood pressure Diastolic blood pressure Provider Name and Address Organization Details Last Updated DateTime 4 167.64 cm 33.7 kg/m2 15521.8 1 g 87 /min 95 % 95 % 98.1 [degF] 123 mm[Hg] 83 mm[Hg] Riri Alfredo MA [facility] 4 09:44:38 Social History Question Answer Notes LastModified by Organizat ion Details LastModified Time Tobacco Smoking Status Never Smoker Not Available [facility] 02/29/2020 03:36:37 Do You Have An Advance Directive? Yes Information not available 01/08/2022 What Is Your Level Of Alcohol Consumption? None [id number] Information not available 02/29/2020 Animal Exposure? Yes Informat ion not available 01/08/2022 Do You Wear A Helmet When Biking? No Information not available 01/08/2022 Is Blood Transfusion Acceptable In An Emergency? Yes [id number] Information not available 02/29/2020 What Is Your Level Of Caffeine Consumption? None Information not available 01/08/2022 How Much Tobacco Do You Chew? None [id number] Information not available 02/29/2020 Are You Currently Employed? Yes [id number] Information not available 02/29/2020 What Type Of Diet Are You Following? REGULAR [id number] Information not available 02/29/2020 Which Illicit Or Recreational Drugs Have You Used? None [id number] Information not available 02/29/2020 Do You Or Have You Ever Used E-cigarettes Or Vape? Never Used Electronic Cigarettes Information not available 01/08/2022 What Is Your Occupation? [employer] [id number] Information not available 02/29/2020 Have There Been Any Changes To Your Family Or Social Situation? No Information no t available 01/08/2022 How Many Days In The Past Year Have You Had A Heavy Drinking Consumption (4+ Female, 5+ Male)? 0 [email or web address] Information no t available 10/31/2020 Are There Any Guns Present In Your Home? No Information not available 01/08/2022 What Is Your Home Situation? Other Information not available 01/08/2022 Legally Blind In One Or Both Eyes? No Information no t available 01/08/2022 Live Alone Or With Others? With Others Information not available 01/08/2022 Do You Take Precautions To Prevent Distracted Driving? Yes [email or web address] Information not available 01/30/2015 How Often Do You Need To Have Someone Help You When You Read Instructions, Pamphlets, Or Other Written Material From Your Doctor Or Pharmacy? Never [email or web address] Information not available 01/30/2015 Have You Served In The ? Yes [employer] Information not available 09/19/2017 Have You Or Anyone In Your Household Had Any Of The Following Symptoms In The Last 14 Days: Sore Throat, Cough, Chills, Body Aches For Unknown Reasons, Shortness Of Breath For Unknown Reasons, Loss Of Smell, Loss Of Taste, Fever At Or Greater Than 100 Degrees Fahrenheit? No Information not available 05/12/2020 Are You Or Anyone In Your Household A Health Care Provider Or Emergency Responder? No Information not available 05/12/2020 To The Best Of Your Knowledge Have You Been In Close Proximity To Any Individual Who Tested Positive For COVID-19? No Information not available 05/12/2020 Have You Recently Traveled To A COVID-19 High Risk Area Or Gathering In The Last 10 Days? No Information not available 05/12/2020 Marital Status [email or web address] Informatio n not available 01/08/2022 What Was The Date Of Your Most Recent Tobacco Screening? 02/21/2023 Information not available 02/21/2023 Total Number Of Stairs In Home 24 Information not available 01/08/2022 How Many Children Do You Have? 4 [id number] Information not available 02/29/2020 Do You Use Protection During Sex? No [id number] Information not available 02/29/2020 Difficulty Reading? No Information not available 01/08/2022 What Is Your Relationship Status? Information not available 01/08/2022 Seat Belts Used Routinely No Information not available 01/08/2022 Are You Sexually Active? Yes [id number] Information not available 02/29/2020 Do You Have Smoke And Carbon Monoxide Detectors In Your Home? Yes Information not available 01/08/2022 Are You Passively Exposed To Smoke? No Information no t available 01/08/2022 Do You Or Have You Ever Used Smokeless Tobacco? Never Used Smokeless Tobacco [id number] Information not available 02/29/2020 How Much Tobacco Do You Smoke? No [id number] Information not available 02/29/2020 What Types Of Sporting Activities Do You Participate In? Basketball/bas eball Information not available 01/08/2022 Do You Use Any Illicit Or Recreational Drugs? No Information not available 01/08/2022 Do You Use Sunscreen Routinely? No [id number] Information not available 02/29/2020 Do You Or Have You Ever Used Any Other Forms Of Tobacco Or Nicotine? No Information not available 01/08/2022 Sex: Unknown Functional Status Question Answer Note LastModified by Organizat ion Details LastModified Time Do you have difficulty walking or climbing stairs? No Information not available 01/08/2022 Difficulty driving at night? No Information no t available 01/08/2022 Are you able to walk? YESWOREST Information not available 01/08/2022 Are you able to care for yourself? Yes [id number] Information not available 02/29/2020 Do you have difficulty dressing or bathing? No Information not available 01/08/2022 What is your exercise level? Heavy [id number] Information not available 02/29/2020 Mental Status Question Answer Note LastModified by Organization D etails LastModified Time Do you have difficulty concentrating, remembering or making decisions? No Information no t available 01/08/2022 Family History Relationship Description Onset Age of this Age Resolved Age Notes LastModified by Organization Details LastModified Time Father Hypertensive disorder 86 [email or web address] Not available 12/27 14:50:36 Father Alzheimer's disease 80 86 [email or web address] Not available 01/30 15:49:30 Unspecified Relation Diabetes mellitus [email or web address] Not available 2015 16:09:47 Son Asthma 6 [email or web address] Not available 03/2016 16:09:47 Mother Congestive heart failure 72 [email or web address] Not available 12/27 14:56:22 Medical History Condition Response Other N Gout Y Kidney Stones Y Blood Diseases N Hyperthyroidism N Breast Cancer N Depression N COPD N Lung Disease N Hypothyroidism N Defects or Inherited Disease N Anesthesia Complications N Headaches/Migraines N Varicose Veins N Anxiety Disorder N Obesity N Vision or Eye Problems N Arthritis N Head Injury/Concussion N Polyps N Infertility N Congenital Anomalies N Acid Reflux (GERD) N Cancer N Stroke N ADHD N Endometriosis N High Cholesterol N Liver Disease N Fibromyalgia N Kidney Disease N Heart Problems N Ear or Hearing Problems N Hospitalizations N Thyroid Problems N GI Problems N Acne N Eating Disorder N Skin Problems N Anemia N Constipation N Bladder Problems N Mental Illness N Ovarian Cancer N Diabetes N Blood Transfusions N Seizures/Epilepsy N Tuberculosis N AIDS/HIV N Congestive Heart Failure (CHF) N Eczema N Diverticulitis N Abuse/Domestic Violence N Asthma N Allergies N Reflux/GERD N Hepatitis N Pulmonary Embolism N Hypertension N Chicken Pox N Autism Spectrum Disorder (ASD) N Osteoporosis N Immunizations Vaccine Type Date Status Note Provider Name and Address Organization Details Recorded Time COVID-19, mRNA, LNP-S, PF, 30 mcg/0.3 mL dose 021 completed Not Available [facility] 06/09/2023 17:49:47 COVID-19, mRNA, LNP-S, PF, 30 mcg/0.3 mL dose 021 completed Not Available [facility] 06/09/2023 17:49:47 Tdap 019 completed Not Available [facility] 06/09/2023 17:49:47 Influenza, split virus, quadrivalent, PF 022 completed Not Available [facility] 06/09/2023 17:49:47 Influenza, split virus, quadrivalent, PF 018 cancelled patient objection Not Available [facility] 05/15/2019 02:22:16 Pneumococcal conjugate PCV 13 019 cancelled patient objection Not Available [facility] 05/15/2019 02:21:41 pneumococcal polysaccharide PPV23 019 cancelled patient objection Not Available [facility] 05/15/2019 02:21:28 Tdap 019 cancelled patient objection Not Available [facility] 05/15/2019 02:21:49 Td (adult), 5 Lf tetanus toxoid, preservative free, adsorbed 019 cancelled patient objection Not Available [facility] 05/15/2019 02:21:35 Tdap 009 completed Not Available [facility] 06/09/2023 17:49:47 Past Encounters Encounter ID Performer Location Encounter Start Date Encounter Closed Date Diagnosis/Indication Diagnosis SNOMED-CT Code Diagnosis ICD10 Code Diagnosis Note [id number] [facility] [address] [facility] [place] [address] 08/15/2006 00:00:00 [id number] [facility] [address] [facility] [place] [address] 02/19/2007 00:00:00 [id number] [facility] [address] [facility] [place] [address] 05/02/2006 00:00:00 [id number] [facility] [address] [facility] [place] [address] 09/09/2007 00:00:00 [id number] [facility] [address] [facility] [place] [address] 10/01/2007 00:00:00 [id number] [facility] [address] [facility] [place] [address] 11/01/2008 00:00:00 [id number] [facility] [address] [facility] [place] [address] 01/19/2009 00:00:00 [id number] [facility] [address] [facility] [place] [address] 05/03/2009 00:00:00 [id number] [facility] [address] [facility] [place] [address] 11/07/2009 00:00:00 [id number] [facility] [address] [facility] [place] [address] 03/06/2010 00:00:00 [id number] [facility] [address] [place] [address] 05/03/2010 00:00:00 [id number] [facility] [address] [facility] [place] [address] 11/06/2010 00:00:00 [id number] [facility] [address] [facility] [place] [address] 05/09/2011 00:00:00 [id number] [facility] [address] [facility] [place] [address] 05/20/2012 00:00:00 [id number] [facility] [address] [facility] [place] [address] 07/27/2012 00:00:00 [id number] [facility] [address] [facility] [place] [address] 07/30/2012 00:00:00 [id number] [facility] [address] [facility] [place] [address] 03/03/2013 00:00:00 [id number] [facility] [address] [facility] [place] [address] 05/21/2013 00:00:00 [id number] [facility]ce [address] [facility] [place] [address] 06/21/2013 00:00:00 [id number] [facility] [address] [facility] [place] [address] 08/12/2013 00:00:00 [id number] Robert Gotti MD Main Office [address] [facility] [address] [place] [address] 12/15/2013 14:49:37 12/15/2013 15:49:47 Type 2 diabetes mellitus [id number] he would like to try coming off the metformin. We will check his A1C and if it is running around 6.5 we may try him off meds and recheck it in 3 months. If it is higher he understand s that we will continue the meds and he will continue with lifestyle changes. Essential hypertension 96867189 [id number] Jordin Mcfarlandsabine Main Office [address] [address] [place] [address] 03/09/2014 15:12:14 03/09/2014 16:24:21 Type 2 diabetes mellitus [id number] he would like to try coming off the metformin. His A1C was 6.2 last week so he will stop the metformin and continue with lifestyle changes. We will recheck his level in 3 months. Shoulder joint pain [id number] Essential hypertension 85173741 [id number] Jordin Yasmine Main Office [address] [address] [place] [address] 05/04/2014 15:19:35 05/04/2014 15:58:28 Anterior knee pain [id number] possible gout; we will refer him to the [facility] for further eval. [id number] Caryl New [place] Main Office [address] [address] [place] [address] 07/28/2014 14:32:31 07/28/2014 15:44:22 Medial epicondylitis 31390309 I advised him to wear a strap at his upper forearm and to take NSAIDs as well. Shoulder joint pain [id number] Type 2 garry betes mellitus without complication [id number] He is well-contr olled off meds. His last A1C was 6.2. We will recheck this is 6 months. [id number] Robert Gotti MD Main Office [address] [address] [place] [address] 01/30/2015 15:37:00 01/30/2015 16:29:00 Adult health examination 645284375 Z00.00 Medial epicondylitis 532 24782 M77.02 I advised him to wear a strap at his upper forearm and to take NSAIDs as well. He is currently not interested in a referral for a possible injection. Foot pain 32977488 M79.6 72 Gout 99141662 M10.9 [id number] Robert Gotti MD Main Office [address] [address] [place] [address] 08/08/2015 16:02:01 08/08/2015 16:53:53 Type 2 diabetes mellitus without complication 942791169 E11.9 His A1C has increased and is up to 8.9. We discussed going back on meds but he refused feeling that he would rather bring this down on his own with lifestyle changes. Secondary erectile dysfunction 377799529 N52.8 [id number] Robert Gotti MD Main Office [address] [address] [place] [address] 08/16/2015 09:45:23 08/16/2015 10:37:01 Cough 37277161 R05 Possibly secondary to PND from URI but given h/o fever/chil ls will get CXR. Instructed him to increase his dose of benzonatat e from 100 to 200 mg per dose. Also take honey at bedtime. [id number] Dexter Hannah MD Main Office [address] [address] [place] [address] 08/26/2015 08:16:28 08/26/2015 09:26:37 Chronic cough 69337946 R05 Wheezing 89176724 R06.2 [id number] Robert Gotti MD Main Office [address] [address] [place] [address] 10/31/2016 14:08:11 10/31/2016 15:23:24 Type 2 diabetes mellitus 32731379 E11.9 He has not had labs done nor been on meds for more than a year. I stressed the importance of checking on this twice a year. Secondary erectile dysfunction 483417634 N52.8 script filled for 1 month with 5 refills. [id number] Robert Gotti MD Main Office [address] [address] [place] [address] 08/21/2017 14:55:37 08/21/2017 15:37:37 Rib pain 236603753 R07.81 right sided. He is splinting with his hand, encouraged to use a blanket or pillow to splint as needed. ice to area 4 times daily as needed. may use tylenol when at work/ driving. vicodin as needed, no driving or alcohol with med. XR today. May take 2 months or so to heal [id number] Robert Gotti MD Main Office [address] [place] [address] 09/19/2017 15:02:35 09/19/2017 15:42:47 Adult health examination 115402887 Z00.00 Refuses pneumonia vaccine. We discussed colonoscop y and he will keep an appointmen t if we make one for him. Type 2 garry betes mellitus 59207816 E11.9 He has not had labs done nor been on meds for more than a year. I stressed the importance of checking on this at least twice a year and more frequently for him since his A1C is above 10. We discussed insulin and oral meds and he refuses both. We discussed the consequenc es of persistent ly elevated sugars. Screening for malignant neoplasm of colon 387153633 Z12.11 [id number] Robert Gotti MD Main Office [facility] [address] [place] [address] 09/30/2017 16:08:56 09/30/2017 16:43:04 Benign paroxysmal positional vertigo 738921832 H81.10 Symptoms almost resolved. If they return he will do Eply maneuver at home and will make an appointmen t with vestibular rehab. He has meclizine which he will use prn. [id number] Robert Gotti MD Main Office [address] [place] [address] 03/05/2018 16:06:41 03/05/2018 16:59:41 Type 2 diabetes mellitus 16533027 E11.9 His A1C is poor and we discussed the consequenc es of keeping his A1C at this level over a long period. He is adamant about avoiding meds and states that he can get this down on his own with lifestyle changes. Essential hypertension 93338369 I10 BP running high but continues to refuse starting meds. Needs infl uenza immunization 938799902 Z23 Knee pain 63785731 M25.5 69 Gout 30638027 M10.9 [id number] Robert Gotti MD Main Office [address] [place] [address] [place] [address] 05/22/2018 14:36:24 05/22/2018 15:40:49 Type 2 diabetes mellitus 14769604 E11.9 His A1C is above 11 and he now agrees to meds to help bring this under control. We will start with lantus and put on a CGM and see him back in 2 weeks. We may add amaryl to his regimen but for now only one change at a time. Acute non- ST segment elevation myocardial infarction 158726505 I21.4 He will continue with plavix for 1 year, aspirin for life and metoprolol . He lost his voice last time he was taking metoprolol and attributed it to the med. If this happens again he will talk to his cardiologi st or he will message me and I will cortext Dr Myrick. Essential hypertension 68684001 I10 BP running high. Will add an ACEI to his regimen. Hyperlipidemia 94466134 E78.5 Continue with atorvastat in. [id number] Robert Gotti MD Main Office [address] [facility] [address] [place] [address] 06/05/2018 15:03:50 06/05/2018 16:17:08 Type 2 diabetes mellitus 14340842 E11.9 His CGM did not work but he has been checking his sugars a couple of times a day and they have improved since he started the lantus and has been watching his diet. We will order the Oj sensor and gave him a Jo machine we had in the office. He will increase his lantus to 15 units and will increase again to 20 units if his sugars run higher than 140 consistent ly (3 am readings) in the am. [id number] Robert Gotti MD Main Office [address] [facility] [address] [place] [address] 06/18/2018 09:08:21 06/18/2018 10:02:38 Type 2 diabetes mellitus 92441929 E11.9 We discussed the somoji effect and he will google this and try to make adjustment s. His average sugars according to his CGM download is 147. He will be instructed to increase his lantus to 18 units from 15 units. Hyperlipidemia 47349068 E78.5 Continue with atorvastat in. Acute non- ST segment elevation myocardial infarction 208007472 I21.4 He will continue with plavix for 1 year, aspirin for life and metoprolol . He started cardiac rehab and is going twice a week. [id number] Robert Gotti MD Main Office [address] [place] [address] 07/23/2018 14:09:24 07/23/2018 15:07:51 Unstable angina co-occurrent and due to coronary arteriosclerosis 9327661722 4331126 I25.110 He had a stent placed to the RCA and is currently on meds. Advised to stay OOW until he is seen by cardiology the middle of July. Secondary erectile dysfunction 364521690 N52.8 Advised against viagra for now since he cannot use this as well as nitro if he needed it for chest pain. Type 2 garry betes mellitus 96593606 E11.9 After his most recent insulin increase his average sugars are 124 and his overall sugars are 95% in range. [id number] Robert Gotti MD Main Office [address] [place] [address] 08/18/2018 16:09:22 08/18/2018 17:07:06 Type 2 diabetes mellitus 31509312 E11.9 His sugars are 99% in range. He is taking daily insulin but would like to change his regimen so that he doesn't need to inject himself daily. Acute non- ST segment elevation myocardial infarction 464866540 I21.4 He will continue with plavix for 1 year, aspirin for life and metoprolol . He started cardiac rehab and is going twice a week. Essential hypertension 72074590 I10 BP now under good control. Continue current mgmt. [id number] Carolin Watt PA-C Main Office [address] [place] [address] 09/08/2018 13:13:06 09/08/2018 14:28:08 Type 2 diabetes mellitus 32215898 E11.9 After prolonged discussion when choices were given to pt about what medication s could replace insulin injections , we decided to try GLP-1 hormone for weekly injections . WE john see what is covered by the insurance. Pt. will stop insulin when he starts Trulicity injections and return with CGM in 6 weeks. Hyperlipidemia 76106285 E78.2 Immunization refused 275 047476 Z28.21 [id number] Neftali prabhakar MA Main Office [address] [place] [address] 10/27/2018 15:59:55 10/27/2018 16:32:00 Type 2 diabetes mellitus 51359463 E11.9 WEll controlled diabetes. PT. does not need insulin at this point. Doing very well with diet alone. Will continue CGM personal use , diet and cardiac rehab. If glucose goes up w/i the next 4-6 weeks, will start pioglitazo ne 15 mg daily. F/u 3 m. [id number] Robert Gotti MD Main Office [facility] [address] [place] [address] 02/17/2019 15:43:42 02/17/2019 16:38:16 Adult health examination 967630713 Z00.00 Refuses pneumonia vaccine. We discussed colonoscop y and he will make his own appointmen t. Type 2 garry betes mellitus 81956463 E11.9 He is no longer on meds but A1C remains very good at 6.6 so will continue to simply monitor. He will make his own eye appointmen t. Administra tion of viral vaccine 16017027 Z23 Bilateral shoulder joint pain 9452214085 7050643 M25.511 M25.512 [id number] Robert Gotti MD Main Office [address] [place] [address] [place] [address] 05/12/2020 11:08:01 05/17/2020 14:49:14 Type 2 diabetes mellitus 81570743 E11.9 We will give him a free sample of a second generation oj CGM and will put in for a PA. [id number] KELSEY Sharp Main Office [address] [place] [address] 10/24/2020 15:04:22 10/24/2020 15:54:27 Postconcussion syndrome 00947553 F07.81 no ibuprofen or motrin, tylenol every 6 hours as needed. hydration, lots of rest, Screens, reading, activity- may all worsen headache and concussion symptoms, take frequent breaks. no work for 1 week. 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 We did discuss amitripyli ne and referral to concussion clinic as options if sx are not improving. ALIDA concussion form provided as a guideline for typical sx, red flag sx and returning to normal activities . 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 He immediatel y had frontal headache and his head snapped back. Overall sx are a little better since it happened but still very much present. [id number] Alexandrea Yoon [facility] Main Office [address] [address] 10/31/2020 13:51:39 10/31/2020 14:34:05 Postconcussion syndrome 94402810 F07.81 no ibuprofen or motrin, tylenol every 6 hours as needed. hydration, lots of rest, Screens, reading, activity- may all worsen headache and concussion symptoms, take frequent breaks. May try to return to work x 4 hours for 3 days this week. if that worsens sx will revise note and keep him out another week.ALIDA concussion form provided as a guideline for typical sx, red flag sx and returning to normal activities . [id number] Robert Gotti MD [facility] [address] [address] 08/27/2021 08:28:01 08/27/2021 11:03:59 Acute sinusitis 20530850 J01.90 He has a fever and cough as well as sinus pain on the right. This could represent sinusitis or CAP. Will treat with an abx and he will call next week if his symptoms persist. Hyperlipidemia 84276274 E78.2 Continue with atorvastat in. Type 2 garry betes mellitus 44355686 E11.9 He is currently off all meds and has been trying to keep this under control with diet and exercise. [id number] Alexandrea Yoon [facility] Main Office [address] [address] 10/26/2021 08:52:08 10/26/2021 09:49:44 Neck pain 45825917 M54.2 hx of chronic neck pain with surgery x 2. sx have returned and he is very concerned about the numbness as he does not want to lose feeling in his arm. affecting sleep, ADLs, work. Will check XR and order MRI, recommend ibuprofen as needed, suggest gabapentin but he would like to hold off at this time. [id number] Robert Gotti MD Main Office [address] [address] [facility] [place] [address] 01/08/2022 14:13:40 01/08/2022 15:22:22 Adult health examination 882121521 Z00.00 Refuses pneumonia vaccine. We discussed colonoscop y and he opted for cologuard. Chest pain 66143086 R07. 9 He has a f/u with cardiologi st this month. Essential hypertension 07813247 I10 BP running high but he states that it is normal when he checks it at home. Gout 37113147 M10.9 No recent attacks. Not taking allopurino l. Type 2 garry betes mellitus 29624271 E11.9 He is currently off all meds and has been trying to keep this under control with diet and exercise. He will get his A1C done since it has been a while since he was checked. Screening for malignant neoplasm of colon 323726214 Z12.11 Z12.12 Hepatitis C screening 41 6171750 Z11.59 Hyperlipidemia 32979967 E78.2 Continue with atorvastat in. [id number] Carolin Watt PA-C Main Office [address] [address] [place] [address] 02/12/2022 11:57:30 02/12/2022 11:58:01 [id number] OUSMANE MADDEN MD Main Office [address] [place] [address] 02/22/2022 10:27:55 02/22/2022 11:28:28 Weakness present 759653574 M62.81 Cough 70753355 R05.9 - with associated body aches, chills and sore throat- pt is visibly acutely ill and on PE there were diminished lung sounds- rapid flu and RSV were negative- will start patient on treatment for pneumonia (amoxicill in 1g TID for 7 days)- chest x-ray ordered- to help with the cough ordered sherwin loyolals Upper resp iratory infection 23647782 J06.9 [id number] Robert Gotti MD [facility] [address] [place] [address] 03/14/2022 08:18:43 03/26/2022 15:24:22 Type 2 diabetes mellitus 27002634 E11.9 No changes in mgmt since his readings are generally between 90 and 140 with some outliers. We will see him back in 4 months and he will get labs done before that time. Hepatitis C screening 41 0919677 Z11.59 [id number] Robert Gotti MD Main Office [address] [place] [address] 06/07/2022 08:29:52 06/07/2022 10:35:16 [id number] Robert Gotti MD [facility] [address] [place] [address] 06/13/2022 08:37:59 06/13/2022 14:49:09 Chest pain 83196038 R07.9 He has a f/u with cardiologi st this month. Acute non- ST segment elevation myocardial infarction 747821448 I21.4 His plavix was stopped and he was started on brillinta. He continues with carvedilol . He will start cardiac rehab and will follow up with cardiology later this week. Essential hypertension 22499206 I10 Continue with current mgmt and he will follow it at home. Hyperlipidemia 11931044 E78.2 Continue with atorvastat in and ezetimibe. Type 2 garry betes mellitus 41355830 E11.9 No changes in mgmt since his readings are generally between 90 and 140 with some outliers. We will see him back in 3 months and he will get labs done before that time. [id number] Robert Gotti MD [facility] [address] [place] [address] 07/11/2022 08:20:31 07/11/2022 10:41:22 Acute non-ST segment elevation myocardial infarction 950038944 I21.4 Followed by cardiology . His brillinta was stopped and he was started on plavix because of SOB which improved. Also has fatigue which may be from his carvedilol and possibly related to deconditio aaron. He will continue with cardiac rehab and if this persists Dr Thompson, cardiologi , may change his carvedilol to atenolol. He is doing well and is ready to return to work 07/27/22. Essential hypertension 73928976 I10 Continue with current mgmt and he will follow it at home. BP has been very good and has been at goal. Hyperlipidemia 48968412 E78.2 Continue with atorvastat in and ezetimibe. His last LDL was not at goal= 129. He was not yet on ezetimibe and was not always c/w atorvastat in 80 mg. We will recheck his fasting lipid level. Type 2 garry betes mellitus 76426428 E11.9 No changes in mgmt since his readings are generally between 90 and 140 with some outliers. He will get his A1C done and then will make a f/u appointmen t for 3 months after his labs are done. [id number] Bren Kwan RN Main Office [address] [place] [address] 09/20/2022 14:23:33 10/17/2022 07:52:15 [id number] Robert Gotti MD Main Office [address] [place] [address] 02/21/2023 09:21:57 02/21/2023 09:59:18 Adult health examination 582058954 Z00.00 Refuses pneumonia vaccine. We discussed colonoscop y and he opted for cologuard. He also refuses a flu vaccine and a shingles vaccine. Type 2 garry betes mellitus 60499765 E11.9 No changes in mgmt since his readings are generally between 90 and 140 with some outliers. He will get his A1C done and then will make a f/u appointmen t for 6 months. Essential hypertension 79904799 I10 Continue with current mgmt and he will follow it at home. BP has been very good and has been at goal. Hyperlipidemia 08150340 E78.2 Continue with atorvastat in and ezetimibe. His last LDL was at goal=39. Repeat fasting lipid level next year. Coronary arteriosclerosis 16884185 I25.10 Followed regularly by cardiology . His last LA was in May 2022. [id number] Robert Gotti MD Main Office [address] [facility] [address] [place] [address] 08/20/2023 14:51:08 08/20/2023 15:47:08 Type 2 diabetes mellitus 88478924 E11.9 His readings have been running high over the past few months often with readings >than 250. He has been unable to tolerate metformin, trulicity and ozempic. We will do a script for ken and refer him to endocrinol mary. Pain of right wrist 3169 618149 05408 M25.531 Fell and used his right arm to break his fall. Pain in left foot 689418 0788 20776 M79.672 Fell at home injuring his right foot. Hyperlipidemia 88833100 E78.5 Continue with atorvastat in and ezetimibe. His last LDL was at goal=39. Repeat fasting lipid level next appointmen t. Medial epi condylitis of right elbow joint 8162364083 91934 M77.01 He will do exercises at home and will call for a rheum referral if this persists. Essential hypertension 25658319 I10 Continue with current mgmt and he will follow it at home. he did not take his meds today since he had to mota out of the house this am. [id number] Robert Gotti MD Main Office [address] [facility] [address] [place] [address] 10/04/2023 09:36:53 10/04/2023 10:23:55 Upper abdominal pain 04862414 R10.10 No clear etiology for his pain. Doubt cardiac since the pain is non exertional and can start when he is in bed at rest. He is followed by a cardiologi [facility] ed type 2 diabetes mellitus 800869667 E11.65 His A1C in July was 6.8 and is now 9.9. He has been consistent with meds, food, drinks and activity since that time so has no explanatio n for the change. He has an appointmen t scheduled for [facility] endo next month. In the meantime he will increase his lantus and start jardiance. Health Concerns Section Related Observation LastModified by Organization Balbir dhillon LastModified Time None Recorded Concern Status LastModified by Organization Details LastModified Time None Recorded Advance Directives Directive Y: Payers Encounter Date Sequence Insurance Name Policy Number Policy [place] Covered Member ID [place] Member ID Guarantor Name 07/11/2022 1 [facility] [place] [place] [id number] Chase J Fitzell [id number] Chase J Fitzell 09/16/2022 1 [facility] [place] [place] [id number] Chase J Fitzell [id number] Chase J Fitzell 02/21/2023 1 [facility] [id number] Chase J Fitzell [id number] Chase J Fitzell 08/20/2023 1 [facility] [id number] Chase J Fitzell [id number] Chase J Fitzell 10/04/2023 1 [facility] [id number] Chase J Fitzell [id number] Chase J Fitzell Notes Date Note Type Note Provider Name and Address Organization Details Recorded Time 07/11/2022 text/html Coronary Artery Disease F/UReported bypatient.Severity:sym ptoms are improving; no chest discomfort with daily activities; has not needed to use Nitroglycerin Context:non-smoker Associated Symptoms:no chest pain; no dyspnea with exertionNotes:He had a NSTEMI with stent placement 6-7 weeks ago. He is followed by cardiology and attends cardiac rehab. He is taking plavix because he could not tolerate brilinta secondary to SOB. 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 He follows them at home and states that they have been running less than 200 all the time. He has adjusted his diet and will be seeing a store lead to help. He will get his A1C checked next week. His last A1C was 8.8.HyperlipidemiaRepo rted bypatient.Type of hyperlipidemia:hyperch olesterolemia Duration:chronic Control:not at goal Current Therapy:last LDL level: (129); last HDL level: (29) Compliance:compliant with diet; exercises; He had not been c/w diet and exercise but restarted since his recent LA. Complications:coronary artery disease Risk Factors:positive family history of premature arteriosclerotic cardiovascular disease;diabetes;hyper tension;obesity;low HDL levelHypertension F/UReported bypatient.Associated Symptoms:no dizziness; no lightheadedness; no chest pain; no shortness of breath; no palpitations; no edema; no calf pain with exertion Lifestyle:regular exercise; limiting/avoiding salt Medications:taking medications as directed; no side effects from medication Robert Gotti MD [address] [address], [place], [phone], [facility] 07/11/2022 10:32:31 09/16/2022 text/html Hospitalization Contact RecordReported bypatient.Follow UpHospital: [facility]; admit date: (Please enter in format 'MM/DD/YYYY') (09/17/22); date of discharge: (Please enter in format 'MM/DD/YYYY') (09/17/22); date of contact: (Please enter in format 'MM/DD/YYYY') (09/17/22)Notes:Medica re covered inpatient stay? no - BCBS planTOC with in 48 working hours? yes HCP on file? yes MOLST on file? no Discharge Summary available? yes 57 y/o male w/ PMH significant for BPPV, HTN, gout, HLD, IDDM type 2, and CAD/NSTEMI w/ stent to RCA 2018 presented to [facility] [place]/ CP.Ad,mitted for ACS r/wilfrido ACS found-plan for f/u w/ cardiology-09/16 and 09/17 CM spoke to patient in hospital and after d/Kala f/u appt w/ card 09/18-No PCP f/u wanted at this time Bren Kwan RN [facility], [facility] 10/17/2022 07:52:14 02/21/2023 text/html Generic HPI TemplateReported bypatient.Notes:He was laid off from his job last month. He has been much more relaxed since then. He is collecting unemployment and looking for a new job.Followed by cardiology, seen last week and currently w/o symptoms.He is currently managing his diabetes with lantus only. Also has been working on lifestyle changes. Robert Gotti MD [address] [address], [place], [phone], [facility] 02/21/2023 12:54:38 08/20/2023 text/html Diabetes F/URepo rted bypatient.Notes:He has tried ozempic, trulicity and metformin but could tolerate these because of severe nausea and abdominal pain preventing him from eating. His sugars are generally >250 and it seems to make no difference what he eats. He has been to a store lead but did not find this helpful.Hypertension F/UReported bypatient.Associated Symptoms:no dizziness; no lightheadedness; no chest pain; no shortness of breath; no palpitations; no edema; no calf pain with exertion Lifestyle:limiting/vikas iding salt;not exercising regularly Medications:no side effects from medication;not taking medications as directed(he did not take his meds this am. He had to leave the house quickly this am. He states that his BP is usually at a good level.) He fell at home last week and landed on his left side. He has not been seen since the fall. He injured his left foot and his right wrist both of which are still painful. He has not taken any meds besides tylenol. In addition he has right medial elbow pain that predated the fall. It hurts with certain movements. Robert Gotti MD [address] [facility] [address], [place], [phone], [facility] 08/20/2023 18:04:53 10/04/2023 text/html He has been havi ng intermittent upper abdominal pain over the last 5 months. He may get an episode a week that can last from 4-12 hours. He doesn't know what brings it on nor what takes it away besides time. The pain starts at his upper abdomen and runs across the top of his abdomen. It sometimes wakes him from sleep and is not associated with exertion. No n/v, f/c. He has not been evaluated by GI and has never had colon cancer screening. His A1C is elevated again to 9.9 and it was 6.8 in July. He does not have any mounjaro and is unable to find a pharmacy that has it in stock. Right now he is using only 30 units of lantus at bedtime. He was unable to tolerate trulicity, ozempic or metformin. He has an appointment with [facility] next month. Robert Gotti MD [address] [address], [place], [phone], [facility] 10/04/2023 12:47:27
== END 2024-05-12 10:28 | disposition home or self-care (01) ==
PROVIDERS: PCP Internal Medicine; Visit Provider Orthopaedic Surgery
DX: M75.42 Impingement syndrome of left shoulder (principal); M25.811 Other specified joint disorders, right shoulder
CPT/HCPCS: 20610; 99213

== ENCOUNTER → 2024-05-12 09:56 | Outpatient (BNV) | payer BC, SELFPAY | PROVIDERS: Visit Provider Radiology Diagnostic Radiology | DX: M25.512 Pain in left shoulder (principal); M25.511 Pain in right shoulder | CPT/HCPCS: 73030 ==

== ENCOUNTER 2024-05-12 12:28 | Outpatient (REF) | payer BC, SELFPAY ==
--- NOTE | ~2024-05-12 | XR_ITS ---
CLINICAL HISTORY: M25.512 - Pain in left shoulder 2 view left shoulder Comparison: None Findings: No fractures or dislocations. No significant loss of joint space or osteophytes. No erosions. No radiopaque foreign body. IMPRESSION: 1. No acute findings 2. No significant degenerative change. This document has been electronically signed by: Jose A Whaley MD on 05/13/2024 10:45:03
--- NOTE | ~2024-05-12 | XR_ITS ---
CLINICAL HISTORY: M25.511 - Pain in right shoulder 2 view right shoulder Comparison: None Findings: There are degenerative changes of the AC joint with small osteophyte formation. Preserved joint space. Tiny subchondral geodes, mild subchondral sclerosis. There are small osteophytes at the glenohumeral joint. Bones intact. No dislocations. No significant arthritic change. No erosions. No radiopaque foreign body. IMPRESSION: Degenerative changes, no fractures as above This document has been electronically signed by: Gold Lee MD on 05/13/2024 05:34:57
--- OUTSIDE RECORDS SUMMARY | 2024-05-13 15:49 | XMS_ITS | Data Portability ---
Author Organization [facility], Main Office Address [address] [place] [address] Care Team Providers Care Horse Rancher Name Role Phone ROBERT GOTTI Primary Care Provider PARKER DALLAS Liquified Natural Gas Technician JONNIE LANDRY Orthopedic Surgeon [phone] CHRIS MYRICK Tobacco Shaker TATI WHALEY Neurosurgeon JERRY THOMPSON Referring Provider [phone] TONE URBAN Referring Provider [phone] Assessment Encounter Date Assessment Date Assessment LastModified by Organization Details LastModified Time 07/11/2022 07/11/2022 This service was provided using telemedicine. Patient consented to video & audio visit Patient was located in the [facility]. Provider was located in the office. [...] or plasma 2022 023 [email or web address], [address], [address], [place], [address], 4 10:25:20 HbA1c (hemogl obin A1c), blood 2022 023 [email or web address], [address], [address], [place], [address], 4 10:25:20 HbA1c (hemogl obin A1c), blood 2023 024 [facility], [address], [address], [place], [address], 4 16:06:57 CMP, serum or plasma 2023 024 [facility], [address], [facility] [address], [place], [address], 4 16:06:54 CBC w/ auto diff 2023 024 [facility], [address], [facility] [address], [place], [address], 4 16:06:53 albumin /creati nine, mass ratio, urine 2023 024 [facility], [address], [facility] [address], [place], [address], 4 16:06:56 LDL, direct, serum 2023 024 [facility], [address], [place], [address], 4 16:06:55 Referral gastroe nterolo gist referra l - Intermi ttent upper abdomin al pain not related to exertio n and sometim es wakes him at night. Has been going on since the [facility] of the year and each episode can last for 4-12 hours. No n/v or f/c. Spreads to the rest of his abdomen . He has never had a colon cancer screeni . 2023 024 [email or web address] [facility], [address], [place], [address], 4 14:05:03 Procedures None recorde d. Surgeries None recorde d. Imaging XR, foot - Injury to left foot after a fall. Pain mostly at the top of left foot. 2023 024 [facility] (Ultrasound), [address] [place] [address], [address], 4 09:24:06 XR, wrist, 3 or more view - Fell injurin g right wrist; r/o fractur e 2023 024 [facility] (Ultrasound), [address] [place] [address], [address], 4 09:24:06 CT, abdomen , w/ contras t - Intermi ttent upper abdomin al pain not related to exertio n and sometim es wakes him at night. Has been going on since the beginni ng of the year and each episode can last for 4-12 hours. No n/v or f/c. Spreads to the rest of his abdomen . 2023 024 [facility] (Ultrasound), [address] [place] [address], [address], 4 12:01:33 Medication Orders Mounjar o 2.5 mg/0.5 mL subcuta neous pen injecto r 2023 acennerao [facility], [address] [place], [address], 4 10:06:53 Jardian ce 25 mg tablet 2023 BROMIDE [facility], [address] [place], [address], 4 12:29:38 Lantus Solosta r U-100 Insulin 100 unit/mL (3 mL) subcuta neous pen 2023 BROMIDE [facility], [address] [place], [address], 12:29:38 Patient TargetsNo targets recorded. Patient Instructions Encounter Date Encounter Id Patient Instructions Last Modified By Organization Details Last Modified Time 07/11/2022 [id number] learning about type 2 diabetes [email or web address] Not available 07/11/2022 10:32:19 type 2 diabetes: care instructions [email or web address] Not available 07/11/2022 10:32:19 high blood pressure: care instructions [email or web address] Not available 07/11/2022 10:32:19 learning about high blood pressure acennerazzo Not available 07/11/2022 10:32:19 high cholesterol: care instructions [email or web address] Not available 07/11/2022 10:32:19 09/16/2022 [id number] During [facility] f/u call, all current and discharge medications (OTC, herbal therapies, supplements) reviewed and reconciled with patient, including potential side effects, drug interactions, instructions, and the consequences of not taking medication. Reviewed potential barriers to medication adherence, such as side effects from medication or cost of medication. gilbert Not available 10/17/2022 07:52:10 02/21/2023 [id number] learning about type 2 diabetes acennerazzo Not available 02/21/2023 09:40:37 type 2 diabetes: care instructions acennerazzo Not available 02/21/2023 09:40:37 high blood pressure: care instructions acennerazzo Not available 02/21/2023 10:45:26 learning about high blood pressure acennerazzo Not available 02/21/2023 10:45:26 high cholesterol: care instructions acennerazzo Not available 02/21/2023 10:45:26 08/20/2023 [id number] golfer's elbow: exercises acennerazzo Not available 08/20/2023 [...] of medication. 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 Upper abdominal pain Intermittent upper [...] Order d not applic able Not Available [facility] (Cologuard Orders Only) [address], [place], [address], 01/08/2023 10:35:58 08/11/19 23 08/10/2022 ANTI- HEPAT ITIS C results Dupli joon order cance lled via inter face Not Available [facility] [address] [place], [address], 08/10/2022 08:10:51 08/11/19 23 08/10/2022 COMPR EHENS ARYAN METAB OLIC PANL glucose 142 mg/dL (70-99 ) high Not Available [facility] [address] [place], [address], 08/10/2022 10:19:43 08/11/19 23 08/10/2022 COMPR EHENS ARYAN METAB OLIC PANL BUN 20 mg/dL (6-20) Not Available [facility] [address] [place], [address], 08/10/2022 10:19:43 08/11/19 23 08/10/2022 COMPR EHENS ARYAN METAB OLIC PANL creatinine 1.1 mg/dL (0.7-1 .2) Not Available [facility] [address] [place], [address], 08/10/2022 10:19:43 08/11/19 23 08/10/2022 COMPR EHENS ARYAN METAB OLIC PANL sodium 141 mmol/ L (133-1 45) Not Available [facility] [address] [place], [address], 08/10/2022 10:19:43 08/11/19 23 08/10/2022 COMPR EHENS ARYAN METAB OLIC PANL potassium 4.8 mmol/ L (3.6-5 .2) Not Available [facility] [address] [place], [address], 08/10/2022 10:19:43 08/11/19 23 08/10/2022 COMPR EHENS ARYAN METAB OLIC PANL chloride 106 mmol/ L (98-10 7) Not Available [facility] [address] [place], [address], 08/10/2022 10:19:43 08/11/19 23 08/10/2022 COMPR EHENS ARYAN METAB OLIC PANL bicarbonate 26 mmol/ L (22-29 ) Not Available [facility] [address] [place], [address], 08/10/2022 10:19:43 08/11/19 23 08/10/2022 COMPR EHENS ARYAN METAB OLIC PANL anion gap 9 (4-17) Not Available [facility] [address] [place], [address], 08/10/2022 10:19:43 08/11/19 23 08/10/2022 COMPR EHENS ARYAN METAB OLIC PANL albumin 4.2 gm/dL (3.4-4 .8) Not Available [facility] [address] [place], [address], 08/10/2022 10:19:43 08/11/19 23 08/10/2022 COMPR EHENS ARYAN METAB OLIC PANL calcium 9.1 mg/dL (8.6-1 0.5) Not Available [facility] [address] [place], [address], 08/10/2022 10:19:43 08/11/19 23 08/10/2022 COMPR EHENS ARYAN METAB OLIC PANL bilirubin,to bucky 0.6 mg/dL (0-1.2 ) Not Available [facility] [address] [place], [address], 08/10/2022 10:19:43 08/11/19 23 08/10/2022 COMPR EHENS ARYAN METAB OLIC PANL total protein 6.6 gm/dL (6.2-8 .2) Not Available [facility] [address] [place], [address], 08/10/2022 10:19:43 08/11/19 23 08/10/2022 COMPR EHENS ARYAN METAB OLIC PANL Ag ratio 1.8 Not Available [facility] [address] [place], [address], 08/10/2022 10:19:43 08/11/19 23 08/10/2022 COMPR EHENS ARYAN METAB OLIC PANL AST 24 U/L (0-40) Not Available [facility] [address] [place], [address], 08/10/2022 10:19:43 08/11/19 23 08/10/2022 COMPR EHENS ARYAN METAB OLIC PANL alk phos 64 U/L (40-12 9) Not Available [facility] [address] [place], [address], 08/10/2022 10:19:43 08/11/19 23 08/10/2022 COMPR EHENS ARYAN METAB OLIC PANL ALT 27 U/L (0-41) Not Available [facility] [address] [place], [address], 08/10/2022 10:19:43 08/11/19 23 08/10/2022 COMPR EHENS [...] Available [facility] [address] [place], [address], 08/10/2022 10:19:43 08/11/19 23 08/10/2022 LIPID PANEL cholesterol, total 84 mg/dL (<200) Not Available [facility] [address] [place], [address], 08/10/2022 10:19:44 08/11/19 23 08/10/2022 LIPID PANEL triglyceride 53 mg/dL (<150) Not Available [facility] [address] [place], [address], 08/10/2022 10:19:44 08/11/19 23 08/10/2022 LIPID PANEL HDL chol 34 mg/dL (>39) low Not Available [facility] [address] [place], [address], 08/10/2022 10:19:44 08/11/19 23 08/10/2022 LIPID PANEL LDL cholesterol, calculated 39 mg/dL (0-130 ) Not Available [facility] [address] [place], [address], 08/10/2022 10:19:44 08/11/19 23 08/10/2022 LIPID PANEL non HDL cholesterol (calc) 50 mg/dL (<160) Not Available [facility] [address] [place], [address], 08/10/2022 10:19:44 08/11/19 23 08/10/2022 HEMOG LOBIN [...] of Clini micah and Appli ed [facility]ca tion Volum e 43, Suppl ement 1 Not Available [facility] [address], [place], [address], 08/10/2022 10:37:01 08/11/19 23 08/10/2022 URINA RY MICRO ALBUM IN micro-albumi n <12.0 mg/L (<20) The urine micro album in test is desig aubrey to monit or renal funct ion. When scree aaron for Bence Godwin prote inuri a, urine elect ropho resis is recom ilana d. Not Available [facility] [address] [place], [address], 08/10/2022 10:47:49 08/11/19 23 08/10/2022 URINA RY MICRO ALBUM IN malb/creat ratio Unable to calcul ate mg/gm (0-20) Not Available [facility] [address] [place], [address], 08/10/2022 10:47:49 08/11/19 23 08/10/2022 URINA RY MICRO ALBUM IN urine creat for micro albumin 101.6 mg/dL Not Available [facility] [address] [place], [address], 08/10/2022 10:47:49 08/11/19 23 08/10/2022 ANTI- HEPAT ITIS C anti-hepatit is C (neg) normal NEGAT ARYAN Refer ence range : Negat aryan This test was perfo rmed on the Abbot t Archi tect immun oassa y syste m. Not Available [facility] [address] [place], [address], 08/10/2022 12:40:20 10/02/19 24 10/03/2023 CBC WITH DIFFE RENTI AL/PL ATELE T WBC 6.6 x10e3 /uL 3.4-10 .8 Not Available [facility] ([facility]) [address] [place], [address], 10/03/2023 16:06:53 10/02/19 24 10/03/2023 CBC WITH DIFFE RENTI AL/PL ATELE T RBC 4.96 x10e6 /uL 4.14-5 .80 Not Available [facility] ([facility]) [address] [place], [address], 10/03/2023 16:06:53 10/02/19 24 10/03/2023 CBC WITH DIFFE RENTI AL/PL ATELE T hemoglobin 14.9 g/dL 13.0-1 7.7 Not Available [facility] ([facility]) [address] [facility], [address], 10/03/2023 16:06:53 10/02/19 24 10/03/2023 CBC WITH DIFFE RENTI AL/PL ATELE T hematocrit 45.0 % 37.5-5 1.0 Not Available [facility] ([facility]) [address] [place], [address], 10/03/2023 16:06:53 10/02/19 24 10/03/2023 CBC WITH DIFFE RENTI AL/PL ATELE T MCV 91 fL 79-97 Not Available [facility] ([facility]) [address] [place], [address], 10/03/2023 16:06:53 10/02/19 24 10/03/2023 CBC WITH DIFFE RENTI AL/PL ATELE T MCH 30.0 pg 26.6-3 3.0 Not Available [facility] ([facility]) [address] [facility], [place], [address], 10/03/2023 16:06:53 10/02/19 24 10/03/2023 CBC WITH DIFFE RENTI AL/PL ATELE T MCHC 33.1 g/dL 31.5-3 5.7 Not Available [facility] ([facility]) [address] [place], [address], 10/03/2023 16:06:53 10/02/19 24 10/03/2023 CBC WITH DIFFE RENTI AL/PL ATELE T RDW 12.5 % 11.6-1 5.4 Not Available [facility] ([facility]) [address] [place], [address], 10/03/2023 16:06:53 10/02/19 24 10/03/2023 CBC WITH DIFFE RENTI AL/PL ATELE T platelets 239 x10e3 /uL 150-45 0 Not Available [facility] ([facility]) [address] [place], [address], 10/03/2023 16:06:53 10/02/19 24 10/03/2023 CBC WITH DIFFE RENTI AL/PL ATELE T neutrophils 71 % not estab. Not Available [facility] ([facility]) [address] [facility], [place], [address], 10/03/2023 16:06:53 10/02/19 24 10/03/2023 CBC WITH DIFFE RENTI AL/PL ATELE T lymphs 17 % not estab. Not Available [facility] ([facility]) [address] [facility], [place], [address], 10/03/2023 16:06:53 10/02/19 24 10/03/2023 CBC WITH DIFFE RENTI AL/PL ATELE T monocytes 7 % not estab. Not Available [facility] ([facility]) [address] [facility], [place], [address], 10/03/2023 16:06:53 10/02/19 24 10/03/2023 CBC WITH DIFFE RENTI AL/PL ATELE T eos 4 % not estab. Not Available [facility] ([facility]) [address] [facility], [place], [address], 10/03/2023 16:06:53 10/02/19 24 10/03/2023 CBC WITH DIFFE RENTI AL/PL ATELE T basos 1 % not estab. Not Available [facility] ([facility]) [address] [facility], [place], [address], 10/03/2023 16:06:53 10/02/19 24 10/03/2023 CBC WITH DIFFE RENTI AL/PL ATELE T immature cells GRADUATING MACHINE OPERATOR Not Available [facility] ([facility]) [address] [facility], [place], [address], 10/03/2023 16:06:53 10/02/19 24 10/03/2023 CBC WITH DIFFE RENTI AL/PL ATELE T neutrophils (absolute) 4.6 x10e3 /uL 1.4-7. 0 Not Available [facility] ([facility]) [address] [facility], [place], [address], 10/03/2023 16:06:53 10/02/19 24 10/03/2023 CBC WITH DIFFE RENTI AL/PL ATELE T lymphs (absolute) 1.1 x10e3 /uL 0.7-3. 1 Not Available [facility] ([facility]) [address] [facility], [place], [address], 10/03/2023 16:06:53 10/02/19 24 10/03/2023 CBC WITH DIFFE RENTI AL/PL ATELE T monocytes(ab solute) 0.5 x10e3 /uL 0.1-0. 9 Not Available [facility] ([facility]) [address] [place], [address], 10/03/2023 16:06:53 10/02/19 24 10/03/2023 CBC WITH DIFFE RENTI AL/PL ATELE T eos (absolute) 0.3 x10e3 /uL 0.0-0. 4 Not Available [facility] ([facility]) [address] [facility], [place], [address], 10/03/2023 16:06:53 10/02/19 24 10/03/2023 CBC WITH DIFFE RENTI AL/PL ATELE T baso (absolute) 0.1 x10e3 /uL 0.0-0. 2 Not Available [facility] ([facility]) [address] [place], [address], 10/03/2023 16:06:53 10/02/19 24 10/03/2023 CBC WITH DIFFE RENTI AL/PL ATELE T immature granulocytes 0 % not estab. Not Available [facility] ([facility]) [address] [place], [address], 10/03/2023 16:06:53 10/02/19 24 10/03/2023 CBC WITH DIFFE RENTI AL/PL ATELE T immature grans (abs) 0.0 x10e3 /uL 0.0-0. 1 Not Available [facility] ([facility]) [address] [facility], [place], [address], 10/03/2023 16:06:53 10/02/19 24 10/03/2023 CBC WITH DIFFE RENTI AL/PL ATELE T NRBC GRADUATING MACHINE OPERATOR Not Available [facility] ([facility]) [address] [facility], [place], [address], 10/03/2023 16:06:53 10/02/19 24 10/03/2023 CBC WITH DIFFE RENTI AL/PL ATELE T hematology comments: GRADUATING MACHINE OPERATOR Not Available [facility] ([facility]) [address] [facility], [place], [address], 10/03/2023 16:06:53 10/02/19 24 10/03/2023 COMP. METAB OLIC PANEL (14) glucose 283 mg/dL 70-99 above high normal Not Available [facility] ([facility]) [address] [facility], [place], [address], 10/03/2023 16:06:54 10/02/19 24 10/03/2023 COMP. METAB OLIC PANEL (14) BUN 16 mg/dL 6-24 Not Available [facility] ([facility]) [address] [facility], [place], [address], 10/03/2023 16:06:54 10/02/19 24 10/03/2023 COMP. METAB OLIC PANEL (14) creatinine 1.01 mg/dL 0.76-1 .27 Not Available [facility] ([facility]) [address] [facility], [place], [address], 10/03/2023 16:06:54 10/02/19 24 10/03/2023 COMP. METAB OLIC PANEL (14) eGFR 86 mL/mi n/1.7 3 >59 Not Available [facility] ([facility]) [address] [place], [address], 10/03/2023 16:06:54 10/02/19 24 10/03/2023 COMP. METAB OLIC PANEL (14) BUN/creatini ne ratio 16 9-20 Not Available [facility] ([facility]) [address] [place], [address], 10/03/2023 16:06:54 10/02/19 24 10/03/2023 COMP. METAB OLIC PANEL (14) sodium 138 mmol/ L 134-14 4 Not Available [facility] ([facility]) [address] [place], [address], 10/03/2023 16:06:54 10/02/19 24 10/03/2023 COMP. METAB OLIC PANEL (14) potassium 4.6 mmol/ L 3.5-5. 2 Not Available [facility] ([facility]) [address] [place], [address], 10/03/2023 16:06:54 10/02/19 24 10/03/2023 COMP. METAB OLIC PANEL (14) chloride 103 mmol/ L 96-106 Not Available [facility] ([facility]) [address] [place], [address], 10/03/2023 16:06:54 10/02/19 24 10/03/2023 COMP. METAB OLIC PANEL (14) carbon dioxide, total 22 mmol/ L 20-29 Not Available [facility] ([facility]) [address] [place], [address], 10/03/2023 16:06:54 10/02/19 24 10/03/2023 COMP. METAB OLIC PANEL (14) calcium 8.8 mg/dL 8.7-10 .2 Not Available [facility] ([facility]) [address] [place], [address], 10/03/2023 16:06:54 10/02/19 24 10/03/2023 COMP. METAB OLIC PANEL (14) protein, total 6.3 g/dL 6.0-8. 5 Not Available [facility] ([facility]) [address] [place], [address], 10/03/2023 16:06:54 10/02/19 24 10/03/2023 COMP. METAB OLIC PANEL (14) albumin 3.9 g/dL 3.8-4. 9 Not Available [facility] ([facility]) [address] [place], [address], 10/03/2023 16:06:54 10/02/19 24 10/03/2023 COMP. METAB OLIC PANEL (14) globulin, total 2.4 g/dL 1.5-4. 5 Not Available [facility] ([facility]) [address] [place], [address], 10/03/2023 16:06:54 10/02/19 24 10/03/2023 COMP. METAB OLIC PANEL (14) A/G ratio 1.6 1.2-2. 2 Not Available [facility] ([facility]) [address] [place], [address], 10/03/2023 16:06:54 10/02/19 24 10/03/2023 COMP. METAB OLIC PANEL (14) bilirubin, total 0.4 mg/dL 0.0-1. 2 Not Available [facility] ([facility]) [address] [place], [address], 10/03/2023 16:06:54 10/02/19 24 10/03/2023 COMP. METAB OLIC PANEL (14) alkaline phosphatase 86 IU/L 44-121 Not Available [facility] ([facility]) [address] [place], [address], 10/03/2023 16:06:54 10/02/19 24 10/03/2023 COMP. METAB OLIC PANEL (14) AST (SGOT) 26 IU/L 0-40 Not Available [facility] ([facility]) [address] [facility], [place], [address], 10/03/2023 16:06:54 10/02/19 24 10/03/2023 COMP. METAB OLIC PANEL (14) ALT (SGPT) 30 IU/L 0-44 Not Available [facility] ([facility]) [address] [facility], [place], [address], 10/03/2023 16:06:54 10/02/19 24 10/03/2023 LDL JEFF STERO L (DIRE CT) LDL chol. (direct) 49 mg/dL 0-99 Not Available [facility] ([facility]) [address] [facility], [place], [address], 10/03/2023 16:06:55 10/02/19 24 10/03/2023 LDL JEFF STERO L (DIRE CT) comment: GRADUATING MACHINE OPERATOR Not Available [facility] ([facility]) [address] [place], [address], 10/03/2023 16:06:55 10/02/19 24 10/03/2023 ALBUM IN/CR EATIN INE RATIO ,URIN E creatinine, urine 117.0 mg/dL not estab. Not Available [facility] ([facility]) [address] [place], [address], 10/03/2023 16:06:56 10/02/19 24 10/03/2023 ALBUM IN/CR EATIN INE RATIO ,URIN E albumin, urine <3.0 ug/mL not estab. Not Available [facility] ([facility]) [address] [place], [address], 10/03/2023 16:06:56 10/02/19 24 10/03/2023 ALBUM IN/CR EATIN INE RATIO ,URIN E alb/creat ratio <3 mg/g_ creat 0-29 Aylin l: 0 - 29 Moder ately incre ased: 30 - 300 Sever medina incre ased: >300 Not Available [facility] ([facility]) [address] [place], [address], 10/03/2023 16:06:56 10/02/19 24 10/03/2023 HEMOG LOBIN A1C hemoglobin A1C 9.9 % 4.8-5. 6 above high normal Predi abete s: 5.7 - 6.4 Diabe grayson: >6.4 Glyce catarino contr ol for adult s with diabe grayson: <7.0 Not Available [facility] ([facility]) [address] [place], [address], 10/03/2023 16:06:57 10/02/19 24 10/10/2023 AMYLA SE amylase 48 U/L 31-110 Not Available [facility] ([facility]) [address] [place], [address], 10/10/2023 18:06:02 10/02/19 24 10/10/2023 LIPAS E lipase 40 U/L 13-78 Not Available [facility] ([facility]) [address] [place], [address], 10/10/2023 18:06:03 10/02/19 24 10/06/2023 SOHAM EN AUTHO RIZAT ION written authorizatio n Gita Gonzalez en Autho rizat ion Recei owen. Autho rizat ion recei owen from [employer] for [employer] Reque st on 10-05 Logge d by Anabell Banks Not Available [facility] ([facility]) [address] [place], [address], 10/10/2023 18:06:03 11/23/19 24 11/24/2023 CBC WITH DIFFE RENTI AL/PL ATELE T WBC 8.0 x10e3 /uL 3.4-10 .8 normal Not Available [facility] ([facility]) [address] [facility], [place], [address], 11/27/2023 14:06:48 11/23/19 24 11/24/2023 CBC WITH DIFFE RENTI AL/PL ATELE T RBC 5.20 x10e6 /uL 4.14-5 .80 normal Not Available [facility] ([facility]) [address] [facility], [place], [address], 11/27/2023 14:06:48 11/23/19 24 11/24/2023 CBC WITH DIFFE RENTI AL/PL ATELE T hemoglobin 15.9 g/dL 13.0-1 7.7 normal Not Available [facility] ([facility]) [address] [place], [address], 11/27/2023 14:06:48 11/23/19 24 11/24/2023 CBC WITH DIFFE RENTI AL/PL ATELE T hematocrit 47.7 % 37.5-5 1.0 normal Not Available [facility] ([facility]) [address] [place], [address], 11/27/2023 14:06:48 11/23/19 24 11/24/2023 CBC WITH DIFFE RENTI AL/PL ATELE T MCV 92 fL 79-97 normal Not Available [facility] ([facility]) [address] [place], [address], 11/27/2023 14:06:48 11/23/19 24 11/24/2023 CBC WITH DIFFE RENTI AL/PL ATELE T MCH 30.6 pg 26.6-3 3.0 normal Not Available [facility] ([facility]) [address] [place], [address], 11/27/2023 14:06:48 11/23/19 24 11/24/2023 CBC WITH DIFFE RENTI AL/PL ATELE T MCHC 33.3 g/dL 31.5-3 5.7 normal Not Available [facility] ([facility]) [address] [facility], [place], [address], 11/27/2023 14:06:48 11/23/19 24 11/24/2023 CBC WITH DIFFE RENTI AL/PL ATELE T RDW 12.7 % 11.6-1 5.4 Not Available [facility] ([facility]) [address] [facility], [place], [address], 11/27/2023 14:06:48 11/23/19 24 11/24/2023 CBC WITH DIFFE RENTI AL/PL ATELE T platelets 263 x10e3 /uL 150-45 0 normal Not Available [facility] ([facility]) [address] [facility], [place], [address], 11/27/2023 14:06:48 11/23/19 24 11/24/2023 CBC WITH DIFFE RENTI AL/PL ATELE T neutrophils 73 % not estab. normal Not Available [facility] ([facility]) [address] [facility], [place], [address], 11/27/2023 14:06:48 11/23/19 24 11/24/2023 CBC WITH DIFFE RENTI AL/PL ATELE T lymphs 17 % not estab. normal Not Available [facility] ([facility]) [address] [facility], [place], [address], 11/27/2023 14:06:48 11/23/19 24 11/24/2023 CBC WITH DIFFE RENTI AL/PL ATELE T monocytes 6 % not estab. normal Not Available [facility] ([facility]) [address] [facility], [place], [address], 11/27/2023 14:06:48 11/23/19 24 11/24/2023 CBC WITH DIFFE RENTI AL/PL ATELE T eos 3 % not estab. normal Not Available [facility] ([facility]) [address], [place], [address], 11/27/2023 14:06:48 11/23/19 24 11/24/2023 CBC WITH DIFFE RENTI AL/PL ATELE T basos 1 % not estab. normal Not Available [facility] ([facility]) [address], [place], [address], 11/27/2023 14:06:48 11/23/19 24 11/24/2023 CBC WITH DIFFE RENTI AL/PL ATELE T immature cells [employer]ADUATING [employer]ACHINE [employer]PERATOR Not Available [facility] ([facility]) [address], [place], [address], 11/27/2023 14:06:48 11/23/19 24 11/24/2023 CBC WITH DIFFE RENTI AL/PL ATELE T neutrophils (absolute) 5.8 x10e3 /uL 1.4-7. 0 normal Not Available [facility] ([facility]) [address], [place], [address], 11/27/2023 14:06:48 11/23/19 24 11/24/2023 CBC WITH DIFFE RENTI AL/PL ATELE T lymphs (absolute) 1.4 x10e3 /uL 0.7-3. 1 normal Not Available [facility] ([facility]) [address] [place], [address], 11/27/2023 14:06:48 11/23/19 24 11/24/2023 CBC WITH DIFFE RENTI AL/PL ATELE T monocytes(ab solute) 0.5 x10e3 /uL 0.1-0. 9 normal Not Available [facility] ([facility]) [address] [place], [address], 11/27/2023 14:06:48 11/23/19 24 11/24/2023 CBC WITH DIFFE RENTI AL/PL ATELE T eos (absolute) 0.3 x10e3 /uL 0.0-0. 4 normal Not Available [facility] ([facility]) [address], [place], [address], 11/27/2023 14:06:48 11/23/19 24 11/24/2023 CBC WITH DIFFE RENTI AL/PL ATELE T baso (absolute) 0.1 x10e3 /uL 0.0-0. 2 normal Not Available [facility] ([facility]) [address], [place], [address], 11/27/2023 14:06:48 11/23/19 24 11/24/2023 CBC WITH DIFFE RENTI AL/PL ATELE T immature granulocytes 0 % not estab. Not Available [facility] ([facility]) [address] [place], [address], 11/27/2023 14:06:48 11/23/19 24 11/24/2023 CBC WITH DIFFE RENTI AL/PL ATELE T immature grans (abs) 0.0 x10e3 /uL 0.0-0. 1 Not Available [facility] ([facility]) [address] [place], [address], 11/27/2023 14:06:48 11/23/19 24 11/24/2023 CBC WITH DIFFE RENTI AL/PL ATELE T NRBC GRADUATING MACHINE OPERATOR Not Available [facility] ([facility]) [address] [place], [address], 11/27/2023 14:06:48 11/23/19 24 11/24/2023 CBC WITH DIFFE RENTI AL/PL ATELE T hematology comments: GRADUATING MACHINE OPERATOR Not Available [facility] ([facility]) [address] [place], [address], 11/27/2023 14:06:48 11/23/19 24 11/24/2023 COMP. METAB OLIC PANEL (14) glucose 168 mg/dL 70-99 above high normal Not Available [facility] ([facility]) [address] [place], [address], 11/27/2023 14:06:49 11/23/19 24 11/24/2023 COMP. METAB OLIC PANEL (14) BUN 17 mg/dL 6-24 normal Not Available [facility] ([facility]) [address] [place], [address], 11/27/2023 14:06:49 11/23/19 24 11/24/2023 COMP. METAB OLIC PANEL (14) creatinine 1.04 mg/dL 0.76-1 .27 normal Not Available [facility] ([facility]) [address] [place], [address], 11/27/2023 14:06:49 11/23/19 24 11/24/2023 COMP. METAB OLIC PANEL (14) eGFR 62 mL/mi n/1.7 3 >59 normal Not Available [facility] ([facility]) [address] [place], [address], 11/27/2023 14:06:49 11/23/19 24 11/24/2023 COMP. METAB OLIC PANEL (14) BUN/creatini ne ratio 16 9-20 normal Not Available [facility] ([facility]) [address] [place], [address], 11/27/2023 14:06:49 11/23/19 24 11/24/2023 COMP. METAB OLIC PANEL (14) sodium 139 mmol/ L 134-14 4 normal Not Available [facility] ([facility]) [address] [place], [address], 11/27/2023 14:06:49 11/23/19 24 11/24/2023 COMP. METAB OLIC PANEL (14) potassium 4.5 mmol/ L 3.5-5. 2 normal Not Available [facility] ([facility]) [address] [place], [address], 11/27/2023 14:06:49 11/23/19 24 11/24/2023 COMP. METAB OLIC PANEL (14) chloride 105 mmol/ L 96-106 normal Not Available [facility] ([facility]) [address] [place], [address], 11/27/2023 14:06:49 11/23/19 24 11/24/2023 COMP. METAB OLIC PANEL (14) carbon dioxide, total 23 mmol/ L 20-29 normal Not Available [facility] ([facility]) [address] [place], [address], 11/27/2023 14:06:49 11/23/19 24 11/24/2023 COMP. METAB OLIC PANEL (14) calcium 8.8 mg/dL 8.7-10 .2 normal Not Available [facility] ([facility]) [address] [place], [address], 11/27/2023 14:06:49 11/23/19 24 11/24/2023 COMP. METAB OLIC PANEL (14) protein, total 6.5 g/dL 6.0-8. 5 normal Not Available [facility] ([facility]) [address] [place], [address], 11/27/2023 14:06:49 11/23/19 24 11/24/2023 COMP. METAB OLIC PANEL (14) albumin 4.0 g/dL 3.8-4. 9 normal Not Available [facility] ([facility]) [address] [place], [address], 11/27/2023 14:06:49 11/23/19 24 11/24/2023 COMP. METAB OLIC PANEL (14) globulin, total 2.5 g/dL 1.5-4. 5 Not Available [facility] ([facility]) [address] [place], [address], 11/27/2023 14:06:49 11/23/19 24 11/24/2023 COMP. METAB OLIC PANEL (14) bilirubin, total 0.2 mg/dL 0.0-1. 2 normal Not Available [facility] ([facility]) [address] [facility], [place], [address], 11/27/2023 14:06:49 11/23/19 24 11/24/2023 COMP. METAB OLIC PANEL (14) alkaline phosphatase 82 IU/L 44-121 normal Not Available [facility] ([facility]) [address] [facility], [place], [address], 11/27/2023 14:06:49 11/23/19 24 11/24/2023 COMP. METAB OLIC PANEL (14) AST (SGOT) 19 IU/L 0-40 normal Not Available [facility] ([facility]) [address] [facility], [place], [address], 11/27/2023 14:06:49 11/23/19 24 11/24/2023 COMP. METAB OLIC PANEL (14) ALT (SGPT) 20 IU/L 0-44 normal Not Available [facility] ([facility]) [address] [facility], [place], [address], 11/27/2023 14:06:49 11/23/19 24 11/25/2023 URINA LYSIS , COMPL ETE specific gravity TNP Test not perfo rmed. No urine speci men recei owen. Not Available [facility] ([facility]) [address] [facility], [place], [address], 11/27/2023 14:06:50 11/23/19 24 11/25/2023 URINA LYSIS , COMPL ETE pH TNP Test not perfo rmed Not Available [facility] ([facility]) [address] [facility], [place], [address], 11/27/2023 14:06:50 11/23/19 24 11/25/2023 URINA LYSIS , COMPL ETE urine-color GRADUATING MACHINE OPERATOR Not Available [facility] ([facility]) [address], [place], [address], 11/27/2023 14:06:50 11/23/19 24 11/25/2023 URINA LYSIS , COMPL ETE appearance GRADUATING MACHINE OPERATOR Not Available [facility] ([facility]) [address] [facility], [place], [address], 11/27/2023 14:06:50 11/23/19 24 11/25/2023 URINA LYSIS , COMPL ETE WBC esterase GRADUATING MACHINE OPERATOR Not Available [facility] ([facility]) [address], [place], [address], 11/27/2023 14:06:50 11/23/19 24 11/25/2023 URINA LYSIS , COMPL ETE protein TNP Test not perfo rmed Not Available [facility] ([facility]) [address] [facility], [place], [address], 11/27/2023 14:06:50 11/23/19 24 11/25/2023 URINA LYSIS , COMPL ETE glucose TNP Test not perfo rmed Not Available [facility] ([facility]) [address] [facility], [place], [address], 11/27/2023 14:06:50 11/23/19 24 11/25/2023 URINA LYSIS , COMPL ETE ketones TNP Test not perfo rmed Not Available [facility] ([facility]) [address], [place], [address], 11/27/2023 14:06:50 11/23/19 24 11/25/2023 URINA LYSIS , COMPL ETE occult blood GRADUATING MACHINE OPERATOR Not Available [facility] ([facility]) [address], [place], [address], 11/27/2023 14:06:50 11/23/19 24 11/25/2023 URINA LYSIS , COMPL ETE bilirubin GRADUATING MACHINE OPERATOR Not Available [facility] ([facility]) [address], [place], [address], 11/27/2023 14:06:50 11/23/19 24 11/25/2023 URINA LYSIS , COMPL ETE urobilinogen ,semi-qn GRADUATING MACHINE OPERATOR Not Available [facility] ([facility]) [address] [facility], [place], [address], 11/27/2023 14:06:50 11/23/19 24 11/25/2023 URINA LYSIS , COMPL ETE nitrite, urine GRADUATING MACHINE OPERATOR Not Available [facility] ([facility]) [address] [facility], [place], [address], 11/27/2023 14:06:50 11/23/19 24 11/25/2023 URINA LYSIS , COMPL ETE microscopic examination GRADUATING MACHINE OPERATOR Not Available [facility] ([facility]) [address] [facility], [place], [address], 11/27/2023 14:06:50 11/23/19 24 11/25/2023 URINA LYSIS , COMPL ETE microscopic examination GRADUATING MACHINE OPERATOR Not Available [facility] ([facility]) [address] [facility], [place], [address], 11/27/2023 14:06:50 11/23/19 24 11/24/2023 LIPID PANEL cholesterol, total 97 mg/dL 100-19 9 below low normal Not Available [facility] ([facility]) [address] [place], [address], 11/27/2023 14:06:51 11/23/19 24 11/24/2023 LIPID PANEL triglyceride s 89 mg/dL 0-149 normal Not Available [facility] ([facility]) [address] [place], [address], 11/27/2023 14:06:51 11/23/19 24 11/24/2023 LIPID PANEL HDL cholesterol 34 mg/dL >39 below low normal Not Available [facility] ([facility]) [address] [place], [address], 11/27/2023 14:06:51 11/23/19 24 11/24/2023 LIPID PANEL VLDL cholesterol micah 18 mg/dL 5-40 Not Available [facility] ([facility]) [address] [place], [address], 11/27/2023 14:06:51 11/23/19 24 11/24/2023 LIPID PANEL LDL chol calc ([facility]) 45 mg/dL 0-99 Not Available [facility] ([facility]) [address] [place], [address], 11/27/2023 14:06:51 11/23/19 24 11/24/2023 LIPID PANEL LDL calc comment: GRADUATING MACHINE OPERATOR Not Available [facility] ([facility]) [address] [place], [address], 11/27/2023 14:06:51 11/23/19 24 11/27/2023 ALBUM IN/CR EAT RATIO , RANDO M UR creatinine, urine TNP mg/dL Test not perfo rmed. No urine speci men recei owen. Not Available [facility] ([facility]) [address] [place], [address], 11/27/2023 14:06:51 11/23/19 24 11/27/2023 ALBUM IN/CR EAT RATIO , RANDO M UR albumin, urine TNP Test not perfo rmed Not Available [facility] ([facility]) [address] [place], [address], 11/27/2023 14:06:51 11/23/19 24 11/27/2023 ALBUM IN/CR EAT RATIO , RANDO M UR alb/creat ratio GRADUATING MACHINE OPERATOR Not Available [facility] ([facility]) [address] [place], [address], 11/27/2023 14:06:51 11/23/19 24 11/24/2023 DYLAN+L IPASE amylase 54 U/L 31-110 normal Not Available [facility] ([facility]) [address] [facility], [place], [address], 11/27/2023 14:06:52 11/23/19 24 11/24/2023 DYLAN+L IPASE lipase 34 U/L 13-78 normal Not Available [facility] ([facility]) [address] [facility], [place], [address], 11/27/2023 14:06:52 11/23/19 24 11/25/2023 HEMOG LOBIN A1C hemoglobin A1C 8.4 % 4.8-5. 6 above high normal Predi abete s: 5.7 - 6.4 Diabe grayson: >6.4 Glyce catarino contr ol for adult s with diabe grayson: <7.0 Not Available [facility] ([facility]) [address] [place], [address], 11/27/2023 14:06:53 11/23/19 24 11/25/[address] PROBL EM request problem TNP Test not perfo rmed. No urine speci men recei owen. TEST: 82840 2 Urina lysis , Compl ete Not Available [facility] ([facility]) [address] [place], [address], 11/27/2023 14:06:54 11/23/19 24 11/27/[address] PROBL EM request problem TNP Test not perfo rmed. No urine speci men recei owen. TEST: 77346 7 Album in/Cr eat Ratio , Rando m Ur Not Available [facility] ([facility]) [address] [place], [address], 11/27/2023 14:06:54 01/02/20 23 12/31/2022 MRI, cervi micah spine , w/o contr ast No observ ation record ed. [facility] [address], [place], [address], 01/01/2023 18:20:37 Result Notes None recorded. Problems Name Problem SNOMED Code Status Onset Date Resolution Date Notes Provider Name and Address Organization Details Recorded Time Blood chemistr y outside referenc e range 647222533 Completed 201212/06/2013 RECORDED 07/31/19 13 10:36AM BY NEFTALI CASTRO MA, ANNOTATI ON/ADDEN DUM Not Available [facility] 4 05:29:55 Abnormal findings on diagnost ic imaging of lung 390068918 Completed 201212/06/2013 IMPRESSI ON: ? FOREIGN BODY PROJECTI NG OVER CERVICAL TRACHEA, RECOMMEN DATION FOR CERVICAL SOFT TISSUE FILM TO EVAL; RECORDED 03/03/20 13 10:37AM BY SHADIA ZAVALA MA, NII ON/ADDEN DUM Not Available [facility] 4 05:29:55 Loss of appetite 07314228 Completed 201212/06/2013 RECORDED 07/31/19 13 10:36AM BY NEFTALI CASTRO MA, ANNOTATI ON/ADDEN DUM Not Available [facility] 4 05:29:55 Pneumoni a 858201328 Completed 201212/06/2013 RECORDED 03/03/20 13 10:38AM BY SHADIA ZAVALA MA, JASONATI ON/ADDEN DUM Not Available [facility] 4 05:29:55 Cough 05604052 Completed 201312/06/2013 IMPRESSI ON: WILL TX FOR SUSPECTE D CAP; RECORDED 05/21/19 14 1:10PM BY IRVIN JORDAN MA, JASONATI ON/ADDEN DUM Caryl moreno [facility] - [facility] 8 15:00:57 Indigest ion 543665172 Completed 200712/06/2013 RESOLVED DATE: 09/09/19 08; RECORDED 09/09/19 08 4:16PM BY ROBERT RÍOS MD, ANNOTATI ON/ADDEN DUM Not Available [facility] 4 05:29:55 Impotenc e of organic origin Completed 201112/06/2013 RECORDED 12/17/19 12 12:49PM BY JORDIN GAMEZ I ANNOTATI ON/ADDEN DUM Not Available [facility] 4 05:29:55 Glucose level outside referenc e range 103551900 Completed 201312/06/2013 IMPRESSI ON: LIKELY IS DIABETIC [...] GAMEZ I ANNOTATI ON/ADDEN DUM Not Available [facility] 4 05:29:55 Gout 58022436 Completed 200812/06/2013 RECORDED 11/02/19 09 10:01AM BY MARU MARK, ANNOTATI ON/ADDEN DUM Not Available [facility] 4 05:29:55 Headache 59981288 Completed 200812/06/2013 RECORDED 11/02/19 09 8:13AM BY NEFTALI CASTRO MA, ANNOTATI ON/ADDEN DUM Not Available [facility] 4 05:29:55 Influenz a vaccine needed 01974588582 06 Completed 201112/06/2013 DATE: 05/09/19 12; RECORDED 12/17/19 12 12:49PM BY JASON ALVAREZATI ON/ADDEN DUM Not Available [facility] 4 05:29:55 Administ ration of bacteria l and viral vaccine Completed 200812/06/2013 RECORDED 11/02/19 09 2:11PM BY MARU LYON, OFFICE VISIT Not Available [facility] 4 05:29:55 Hand joint pain 222378607 Completed 200812/06/2013 RECORDED 11/02/19 09 8:13AM BY NEFTALI CASTRO MA, ANNOTATI ON/ADDEN DUM Not Available [facility] 4 05:29:55 Joint pain in ankle and foot Completed 201112/06/2013 RECORDED 12/17/19 12 12:49PM BY JORDIN GAMEZ I ANNOTATI ON/ADDEN DUM Not Available [facility] 4 05:29:55 Shoulder joint pain 910472748 Completed 201112/06/2013 RECORDED 12/17/19 12 12:49PM BY JORDIN GAMEZ I ANNOTATI ON/ADDEN DUM Not Available [facility] 4 05:29:56 Pain in limb 35122451 Completed 201112/06/2013 RECORDED 12/17/19 12 12:48PM BY JASON ALVAREZATI ON/ADDEN DUM Not Available [facility] 4 05:29:56 Psychose xual dysfunct ion associat ed with inhibite d libido 576324064 Completed 201112/06/2013 RECORDED 12/17/19 12 12:48PM BY JORDIN GAMEZ I ANNOTATI ON/ADDEN DUM Not Available [facility] 4 05:29:56 Adult health examinat ion Completed 201112/06/2013 RECORDED 12/17/19 12 12:48PM BY JASON ALVAREZATI ON/ADDEN DUM Not Available [facility] 4 05:29:56 Increase d frequenc y of urinatio n 766951072 Completed 201312/06/2013 RECORDED 06/21/19 14 8:57AM BY JORDIN GAMEZ I ANNOTATI ON/ADDEN DUM Not Available [facility] 4 05:29:56 Type 2 diabetes mellitus 43066900 Completed 03/09/2014 Robert Gotti MD [address], [place], [address] , [facility] 4 16:01:09 Shoulder joint pain 760491108 Completed 08/21/2017 Caryl New MA null, [facility] 8 15:01:16 Anterior knee pain 337598768 Completed 08/21/2017 Caryl New MA null, [facility] 8 15:01:14 Type 2 diabetes mellitus 17221914 Active Not Available [facility] 4 17:49:47 Medial epicondy litis 89955713 Active Not Available [facility] 4 17:49:47 Foot pain 21221306 Completed 08/21/2017 Caryl New MA null, [facility] 8 15:01:00 Gout 42122771 Active Not Available [facility] 4 17:49:47 Secondar y erectile dysfunct ion 035830546 Active Not Available [facility] 4 17:49:47 Cough 30808223 Completed 08/21/2017 Caryl New MA null, [facility] 8 15:00:57 Chronic cough 53580502 Completed 08/21/2017 Caryl New MA null, [facility] 8 15:01:05 Wheezing 32675754 Completed 08/21/2017 Caryl najera MA null, [facility] 8 15:01:02 Chronic pharyngi tis 521509 Active Not Available [facility] 4 17:49:47 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 Also has 75% stenosis of RCA. Treated medicall y. In 2022: [facility] [place]. S/p stent placemen t to distal LCx and OM2. Not Available [facility] 4 17:49:47 Hyperlip idemia 74294778 Active 2018 Not Available [facility] 4 17:49:47 Pain of right shoulder joint 79843161331 432386 Active 2018 [facility]; Followed by [facility] Has chosen surgery to be done end of 2020. Not Available [facility] 4 17:49:47 Angina pectoris 259257772 Active 2021 Stable; followed by cardiolyle gy [facility] Available [facility] 4 17:49:47 History of SARS-CoV -2 84583750563 2686820 Active 2021 Not Available [facility] 4 17:49:47 Neck pain 49283286 Active 2021 Not Available [facility] 4 17:49:47 Uncontro lled type 2 diabetes mellitus 899199569 Active 2023 IMPRESSI ON: WE WILL DO LABS AGAIN IN 2 MONTHS. I ENCOURAG ED TAKING BOTH DOSES OF METFORMI N BUT IT SOUNDS LIKE HE WANTS TO STAY ON JUST 1 PILL DAILY AND MONITOR HIS SUGARS.; RECORDED 08/13/19 14 3:55PM BY JORDIN GAMEZ I, OFFICE VISIT Started with [facility] endo September 2023. Robert Gotti MD [address], [place], [address] , [facility] [place] 4 12:55:55 Blood chemistr y outside referenc e range 254389037 Completed 201211/09/2013 RECORDED 07/31/19 13 10:36AM BY NEFTALI CASTRO MA, ANNOTATI ON/ADDEN DUM Not Available [facility] 4 14:24:07 Abnormal findings on diagnost ic imaging of lung 455852158 Completed 201211/09/2013 IMPRESSI ON: ? FOREIGN BODY PROJECTI NG OVER CERVICAL TRACHEA, RECOMMEN DATION FOR CERVICAL SOFT TISSUE FILM TO EVAL; RECORDED 03/03/20 13 10:37AM BY SHADIA ZAVALA MA, ANNOTATI ON/ADDEN DUM Not Available [facility] 4 14:24:07 Loss of appetite 56257001 Completed 201211/09/2013 RECORDED 07/31/19 13 10:36AM BY NEFTALI CASTRO MA, ANNOTATI ON/ADDEN DUM Not Available [facility] 4 14:24:07 Patient status finding [id number] Completed 201312/15/2013 RECORDED 08/13/19 14 3:55PM BY JORDIN GAMEZ I, OFFICE VISIT Robert Gotti MD [address], [place], [address] , [facility] [place] 4 17:26:01 Patient status finding 199366559 Completed 201211/09/2013 RECORDED 07/28/19 13 11:35AM BY LUZ MARINA MARQUEZ MA, ANNOTATI ON/ADDEN DUM Not Available [facility] 4 14:24:07 Benign paroxysm al position al vertigo 829422623 Active Not Available [facility] 4 17:49:47 Pneumoni a 297487966 Completed 201211/09/2013 RECORDED 03/03/20 13 10:38AM BY SHADIA ZAVALA MA, ANNOTATI ON/ADDEN DUM Not Available [facility] 4 14:24:07 Cough 65402734 Completed 201311/09/2013 IMPRESSI ON: WILL TX FOR SUSPECTE D CAP; RECORDED 05/21/19 14 1:10PM BY IRVIN JORDAN MA, ANNOTATI ON/ADDEN DUM Caryl New MA [facility], [facility] 8 15:00:57 Type 2 diabetes mellitus without complica tion 881810908 Completed 05/23/2018 Robert Gotti MD [address], [place], [address] , [facility] [place] 9 10:45:21 Uncontro lled type 2 diabetes mellitus 269027615 Completed 201312/15/2013 IMPRESSI ON: WE WILL DO LABS AGAIN IN 2 MONTHS. I ENCOURAG ED TAKING BOTH DOSES OF METFORMI N BUT IT SOUNDS LIKE HE WANTS TO STAY ON JUST 1 PILL DAILY AND MONITOR HIS SUGARS.; RECORDED 08/13/19 14 3:55PM BY JORDIN GAMEZ I, OFFICE VISIT Robert Gotti MD [address], [place], [address] , [facility] [place] 4 12:55:55 Indigsarah beth tomas 317664383 Completed 200711/09/2013 RESOLVED DATE: 09/09/19 08; RECORDED 09/09/19 08 4:16PM BY ROBERT RÍOS MD, ANNOTATI ON/ADDEN DUM Not Available [facility] 4 14:24:08 Impotenc e of organic origin Completed 201111/09/2013 RECORDED 12/17/19 12 12:49PM BY JORDIN GAMEZ I, ANNOTATI ON/ADDEN DUM Not Available [facility] 4 14:24:08 Glucose level outside referenc e range 229974259 Completed 201311/09/2013 IMPRESSI ON: LIKELY IS DIABETIC [...] GAMEZ I ANNOTATI ON/ADDEN DUM Not Available [facility] 4 14:24:08 [facility] hyperten nava 28807193 Active Not Available [facility] 4 17:49:47 Essentia l hyperten nava 78699453 Completed 201211/09/2013 RECORDED 07/31/19 13 10:36AM BY NEFTALI CASTRO MA, ANNOTATI ON/ADDEN DUM Not Available [facility] 4 14:24:08 Gout 97868339 Completed 200811/09/2013 RECORDED 11/02/19 09 10:01AM BY MARU MARK, ANNOTATI ON/ADDEN DUM Not Available [facility] 4 14:24:08 Headache 47326713 Completed 200811/09/2013 RECORDED 11/02/19 09 8:13AM BY NEFTALI CASTRO MA, ANNOTATI ON/ADDEN DUM Not Available [facility] 4 14:24:08 Transien t insomnia 607284290 Active Not Available [facility] 4 17:49:47 Influenz a vaccine needed 07523527383 06 Completed 201111/09/2013 DATE: 05/09/19 12; RECORDED 12/17/19 12 12:49PM BY JASON ALVAREZATI ON/ADDEN DUM Not Available [facility] 4 14:24:08 Administ ration of bacteria l and viral vaccine Completed 200811/09/2013 RECORDED 11/02/19 09 2:11PM BY MARU LYON, OFFICE VISIT Not Available [facility] 4 14:24:09 Hand joint pain 151597500 Completed 200811/09/2013 RECORDED 11/02/19 09 8:13AM BY NEFTALI CASTRO MA, ANNOTATI ON/ADDEN DUM Not Available [facility] 4 14:24:09 Joint pain in ankle and foot Completed 201111/09/2013 RECORDED 12/17/19 12 12:49PM BY JASON ALVAREZATI ON/ADDEN DUM Not Available [facility] 4 14:24:09 Shoulder joint pain 281812314 Completed 201111/09/2013 RECORDED 12/17/19 12 12:49PM BY JASON ALVAREZATI ON/ADDEN DUM Not Available [facility] 4 14:24:09 Pain in limb 86404149 Completed 201111/09/2013 RECORDED 12/17/19 12 12:48PM BY JASON ALVAREZATI ON/ADDEN DUM Not Available [facility] 4 14:24:09 Psychose xual dysfunct ion associat ed with inhibite d libido 132815562 Completed 201111/09/2013 RECORDED 12/17/19 12 12:48PM BY JASON ALVAREZATI ON/ADDEN DUM Not Available [facility] 4 14:24:09 Adult health examinat ion Completed 201111/09/2013 RECORDED 12/17/19 12 12:48PM BY NII ALVAREZ ON/ADDEN DUM Not Available [facility] 4 14:24:09 Increase d frequenc y of urinatio n 408413411 Completed 201311/09/2013 RECORDED 06/21/19 14 8:57AM BY NII ALVAREZ ON/ADDEN DUM Not Available [facility] 4 14:24:09 Notes:Some problems listed i n Documents: #[id number], #[id number], #[id number], #[id number], #[id number], #[id number] could not be added to this patient's chart. Please review these documents and add these problems to the patient's chart manually as needed. Problem Notes None recorded. Procedures Surgical History Date Name Laterality Status Provider Name and Address Organization Details Recorded Time 02/08/20 21 shoulder injection completed Nicolasa Mckeon [facility] 02/21/2021 09:19:35 08/19/19 19 Diabetic Foot Exam (Monofilament) completed Luz Marina Marquez MA [facility] 08/18/2018 16:12:37 07/21/19 19 catheterization completed Ericka Bowen [facility] 07/20/2018 15:41:08 06/18/19 19 Diabetic Foot Exam (Monofilament) completed Jordin Underwood [facility] 06/18/2018 09:12:04 06/05/19 19 Diabetic Foot Exam (Monofilament) completed Jordin Underwood [facility] 06/05/2018 15:29:59 09/20/19 18 Diabetic Foot Exam (Monofilament) completed Robert Gotti MD [address] [address], [place], [address], [facility] [place] 09/20/2017 13:14:43 05/29/19 06 Neurosurgery completed Maryanne Traore MA [facility] 01/08/2022 14:22:22 08/27/19 05 Appendectomy completed Maryanne Traore MA [facility] 01/08/2022 14:22:22 12/28/19 01 Neurosurgery completed Jordin Underwood [facility] 01/30/2015 15:50:20 09/26/18 84 Hernia Repair completed Maryanne Traore MA [facility] 01/08/2022 14:22:22 10/26/18 66 Hernia Repair completed Jordin Underwood [facility] 01/30/2015 15:50:20 Imaging Results Imaging Date Name Status LastModified by Organiz ation Details LastModified Time 12/31/2022 MRI, cervical spine, w/o contrast completed [facility] [address] [place] [address], [place], [address], 01/01/2023 18:20:37 Procedure Notes None recorded. Medical Equipment None Reported. Allergies Allergen ID Allergen Name Allergen Category Reaction Reaction Severity Criticality Documentation Date Start Date Code Code System Note Provider Name and Address Organization Details Recorded Time 11043 metformin medicatio n diarrhea severe Not available 05/24/2018 6809 RxNorm Robert bermudez MD [address], [place], [address], [facility] [place] 9 09:15:53 46476 Trulicity medicatio n nausea severe Not available 10/27/2018 [id number] RxNorm Carolin Watt PA-C [address], [place], [address], [facility] [place] 9 16:34:54 5748 codeine / guaifenes in medicatio n Not available Not available Not available 11/09/20132013 [id number] RxNorm Robert berumdez MD [address] [facility] [address], [place], [address], [facility] [place] 6 10:24:26 Medications Name Sig Start Date [...] Available No t Available FreeStyle Oj 2 [place] active patient aware we will no longer [...] DateTime 07/11/2022 167.64 cm Kathie Orantes MA [facility] 07/11/2022 09:40:09 Date Recorded Body height Body mass index (BMI) Body weight Heart rate Oxygen saturation Oxygen saturation in Arterial blood by Pulse oximetry Body temperature Systolic blood pressure Diastolic blood pressure Provider Name and Address Organization Details Last Updated DateTime 3 167.64 cm 33.7 kg/m2 58885.8 1 g 83 /min 97 % 97 % 97.6 [degF] 128 mm[Hg] 89 mm[Hg] Riri Alfredo MA [facility] 3 09:31:17 Date Recorded Body height Body mass index (BMI) Body weight Heart rate Oxygen saturation Oxygen saturation in Arterial blood by Pulse oximetry Body temperature Systolic blood pressure Diastolic blood pressure Provider Name and Address Organization Details Last Updated DateTime 4 167.64 cm 34.2 kg/m2 84019.5 8 g 97 /min 94 % 94 % 98.2 [degF] 152 mm[Hg] 99 mm[Hg] Riri Alfredo MA [facility] 4 15:06:09 Date Recorded Body height Body mass index (BMI) Body weight Heart rate Oxygen saturation Oxygen saturation in Arterial blood by Pulse oximetry Body temperature Systolic blood pressure Diastolic blood pressure Provider Name and Address Organization Details Last Updated DateTime 4 167.64 cm 33.7 kg/m2 40187.8 1 g 87 /min 95 % 95 % 98.1 [degF] 123 mm[Hg] 83 mm[Hg] Riri Alfredo MA [facility] 4 09:44:38 Social History Question Answer Notes LastModified by Organizat ion Details LastModified Time Tobacco Smoking Status Never Smoker Not Available [employer] 02/29/2020 03:36:37 Do You Have An Advance Directive? Yes Information not available 01/08/2022 What Is Your Level Of Alcohol Consumption? None [id number] Information not available 02/29/2020 Animal Exposure? Yes Informat ion not available 01/08/2022 Do You Wear A Helmet When Biking? No Information not available 01/08/2022 Is Blood Transfusion Acceptable In An Emergency? Yes [id number] Information not available 02/29/2020 What Is Your Level Of Caffeine Consumption? None Information not available 01/08/2022 How Much Tobacco Do You Chew? None [id number] Information not available 02/29/2020 Are You Currently Employed? Yes [id number] Information not available 02/29/2020 What Type Of Diet Are You Following? REGULAR [id number] Information not available 02/29/2020 Which Illicit Or Recreational Drugs Have You Used? None [id number] Information not available 02/29/2020 Do You Or Have You Ever Used E-cigarettes Or Vape? 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 No Information no t available 01/08/2022 How Many Days In The Past Year Have You Had A Heavy Drinking Consumption (4+ Female, 5+ Male)? 0 [email or web address] Information no t available 10/31/2020 Are There [...] Material From Your Doctor Or Pharmacy? Never [email or web address] Information not available 01/30/2015 Have You Served In The ? Yes [employer] Information not available 09/19/2017 Have You Or [...] How Many Children Do You Have? 4 [id number] Information not available 02/29/2020 Do You Use Protection During Sex? No [id number] Information not available 02/29/2020 Difficulty Reading? No Information not available 01/08/2022 What Is Your Relationship Status? Information not available 01/08/2022 Seat Belts Used Routinely No Information not available 01/08/2022 Are You Sexually Active? Yes [id number] Information not available 02/29/2020 Do You Have Smoke And Carbon Monoxide Detectors In Your Home? Yes Information not available 01/08/2022 Are You Passively Exposed To Smoke? No Information no t available 01/08/2022 Do You Or Have You Ever Used Smokeless Tobacco? Never Used Smokeless Tobacco [id number] Information not available 02/29/2020 How Much Tobacco Do You Smoke? No [id number] Information not available 02/29/2020 What Types Of Sporting Activities Do You Participate In? Basketball/bas eball Information not available 01/08/2022 Do You Use Any Illicit Or Recreational Drugs? No Information not available 01/08/2022 Do You Use Sunscreen Routinely? No [id number] Information not available 02/29/2020 Do You Or [...] you able to care for yourself? Yes [id number] Information not available 02/29/2020 Do you have difficulty dressing or bathing? No Information not available 01/08/2022 What is your exercise level? Heavy [id number] Information not available 02/29/2020 Mental Status Question [...] Diseases N Hyperthyroidism N Breast Cancer N Hypothyroidism N Lung Disease N COPD N Depression N Defects or Inherited Disease N Anesthesia Complications N Headaches/Migraines N Varicose Veins N Anxiety Disorder N Obesity N Vision or Eye Problems N Arthritis N Head Injury/Concussion N Infertility N Polyps N Congenital Anomalies N Acid Reflux (GERD) [...] mcg/0.3 mL dose 021 completed Not Available [facility] 06/09/2023 17:49:47 COVID-19, mRNA, LNP-S, PF, 30 mcg/0.3 mL dose 021 completed Not Available [facility] 06/09/2023 17:49:47 Tdap 019 completed Not Available [facility] 06/09/2023 17:49:47 Influenza, split virus, quadrivalent, PF 022 completed Not Available [facility] 06/09/2023 17:49:47 Influenza, split virus, quadrivalent, PF 018 cancelled patient objection Not Available [facility] 05/15/2019 02:22:16 Pneumococcal conjugate PCV 13 019 cancelled patient objection Not Available [facility] 05/15/2019 02:21:41 pneumococcal polysaccharide PPV23 019 cancelled patient objection Not Available [facility] 05/15/2019 02:21:28 Tdap 019 cancelled patient objection Not Available [facility] 05/15/2019 02:21:49 Td (adult), 5 Lf tetanus toxoid, preservative free, adsorbed 019 cancelled patient objection Not Available [facility] 05/15/2019 02:21:35 Tdap 009 completed Not Available [facility] 06/09/2023 17:49:47 Past Encounters Encounter ID Performer Location Encounter Start Date Encounter Closed Date Diagnosis/Indication Diagnosis SNOMED-CT Code Diagnosis ICD10 Code Diagnosis Note [id number] auto[facility] erce [address] [facility] [place] [address] 08/15/2006 00:00:00 [id number] auto[facility]Comm erce [address] [facility] [place] [address] 02/19/2007 00:00:00 [id number] autoEComm erce [address] [facility] [place] [address] 05/02/2006 00:00:00 [id number] autoEComm erce [address] [facility] [place] [address] 09/09/2007 00:00:00 [id number] autoEComm erce [address] [facility] [place] [address] 10/01/2007 00:00:00 [id number] auto[facility]Comm erce [address] [facility] [place] [address] 11/01/2008 00:00:00 [id number] auto[facility]Comm erce [address] [facility] [place] [address] 01/19/2009 00:00:00 [id number] autoEComm erce [address] [facility] [place] [address] 05/03/2009 00:00:00 [id number] autoEComm erce [address] [facility] [place] [address] 11/07/2009 00:00:00 [id number] autoEComm erce [address] [facility] [place] [address] 03/06/2010 00:00:00 [id number] autoEComm erce [address] [facility] [address] [place] [address] 05/03/2010 00:00:00 [id number] autoEComm erce [address] [facility] [place] [address] 11/06/2010 00:00:00 [id number] autoEComm erce [address] [facility] [place] [address] 05/09/2011 00:00:00 [id number] autoEComm erce [address] [facility] [place] [address] 05/20/2012 00:00:00 [id number] autoEComm erce [address] [facility] [place] [address] 07/27/2012 00:00:00 [id number] autoEComm erce [address] [facility] [place] [address] 07/30/2012 00:00:00 [id number] autoEComm erce [address] [facility] [place] [address] 03/03/2013 00:00:00 [id number] autoEComm erce [address] [facility] [place] [address] 05/21/2013 00:00:00 [id number] autoEComm erce [address] [facility] [place] [address] 06/21/2013 00:00:00 [id number] autoEComm erce [address] [facility] [place] [address] 08/12/2013 00:00:00 [id number] Robert Gotti MD Main Office [address] [facility] [address] [place] [address] 12/15/2013 14:49:37 12/15/2013 15:49:47 Type 2 diabetes mellitus 14662304 he would like to try coming off the metformin. We will check his A1C and if it is running around 6.5 we may try him off meds and recheck it in 3 months. If it is higher he understand s that we will continue the meds and he will continue with lifestyle changes. Essential hypertension 74979600 [id number] Jordin Mcfarlandsabine Main Office [address] [address] [place] [address] 03/09/2014 15:12:14 03/09/2014 16:24:21 Type 2 diabetes mellitus 49228294 he would like to try coming off the metformin. His A1C was 6.2 last week so he will stop the metformin and continue with lifestyle changes. We will recheck his level in 3 months. Shoulder joint pain 548664178 Essential hypertension 33056681 [id number] Jordin Yasmine Main Office [address] [address] [place] [address] 05/04/2014 15:19:35 05/04/2014 15:58:28 Anterior knee pain 105651402 possible gout; we will refer him to the [facility] for further eval. [id number] Caryl New MA Main Office [address] [address] [place] [address] 07/28/2014 14:32:31 07/28/2014 15:44:22 Medial epicondylitis 29873488 I advised him to wear a strap at his upper forearm and to take NSAIDs as well. Shoulder joint pain 278439150 Type 2 garry betes mellitus without complication 166847476 He is well-contr olled off meds. His last A1C was 6.2. We will recheck this is 6 months. [id number] Robert Gotti MD Main Office [address] [address] [place] [address] 01/30/2015 15:37:00 01/30/2015 16:29:00 Adult health examination 696606908 Z00.00 Medial epicondylitis 532 29386 M77.02 I advised him to wear a strap at his upper forearm and to take NSAIDs as well. He is currently not interested in a referral for a possible injection. Foot pain 61502666 M79.6 72 Gout 54370008 M10.9 [id number] Robert Gotti MD Main Office [address] [address] [place] [address] 08/08/2015 16:02:01 08/08/2015 16:53:53 Type 2 diabetes mellitus without complication 983021184 E11.9 His A1C has increased and is up to 8.9. We discussed going back on meds but he refused feeling that he would rather bring this down on his own with lifestyle changes. Secondary erectile dysfunction 616543533 N52.8 [id number] Robert Gotti MD Main Office [address] [address] [place] [address] 08/16/2015 09:45:23 08/16/2015 10:37:01 Cough 99472705 R05 Possibly secondary to PND from URI but given h/o fever/chil ls will get CXR. Instructed him to increase his dose of benzonatat e from 100 to 200 mg per dose. Also take honey at bedtime. [id number] Dexter Hannah MD Main Office [address] [address] [place] [address] 08/26/2015 08:16:28 08/26/2015 09:26:37 Chronic cough 65416750 R05 Wheezing 56163220 R06.2 [id number] Robert Gotti MD Main Office [address] [address] [place] [address] 10/31/2016 14:08:11 10/31/2016 15:23:24 Type 2 diabetes mellitus 29412889 E11.9 He has not had labs done nor been on meds for more than a year. I stressed the importance of checking on this twice a year. Secondary erectile dysfunction 440862185 N52.8 script filled for 1 month with 5 refills. [id number] Robert Gotti MD Main Office [address] [address] [place] [address] 08/21/2017 14:55:37 08/21/2017 15:37:37 Rib pain 668666090 R07.81 right sided. He is splinting with his hand, encouraged to use a blanket or pillow to splint as needed. ice to area 4 times daily as needed. may use tylenol when at work/ driving. vicodin as needed, no driving or alcohol with med. XR today. May take 2 months or so to heal [id number] Robert Gotti MD Main Office [address] [place] [address] 09/19/2017 15:02:35 09/19/2017 15:42:47 Adult health examination 142143920 Z00.00 Refuses pneumonia vaccine. We discussed colonoscop y and he will keep an appointmen t if we make one for him. Type 2 garry betes mellitus 21252142 E11.9 He has not had labs done [...] sugars. Screening for malignant neoplasm of colon 743886005 Z12.11 [id number] Robert Gotti MD Main Office [facility] [address] [place] [address] 09/30/2017 16:08:56 09/30/2017 16:43:04 Benign paroxysmal positional vertigo 972259947 H81.10 Symptoms almost resolved. If they return he will do Eply maneuver at home and will make an appointmen t with vestibular rehab. He has meclizine which he will use prn. [id number] Robert Gotti MD Main Office [address] [place] [address] 03/05/2018 16:06:41 03/05/2018 16:59:41 Type 2 diabetes mellitus 46587071 E11.9 His A1C is poor and we discussed the consequenc es of keeping his A1C at this level over a long period. He is adamant about avoiding meds and states that he can get this down on his own with lifestyle changes. Essential hypertension 45039881 I10 BP running high but continues to refuse starting meds. Needs infl uenza immunization 242760007 Z23 Knee pain 21401830 M25.5 69 Gout 58427705 M10.9 [id number] Robert Gotti MD Main Office [address] [place] [address] [place] [address] 05/22/2018 14:36:24 05/22/2018 15:40:49 Type 2 diabetes mellitus 28160861 E11.9 His A1C is above 11 and he now agrees to meds to help bring this under control. We will start with lantus and put on a CGM and see him back in 2 weeks. We may add amaryl to his regimen but for now only one change at a time. Acute non- ST segment elevation myocardial infarction 007509846 I21.4 He will continue with plavix for 1 year, aspirin for life and metoprolol . He lost his voice last time he was taking metoprolol and attributed it to the med. If this happens again he will talk to his cardiologi st or he will message me and I will cortext Dr Myrick. Essential hypertension 82402758 I10 BP running high. Will add an ACEI to his regimen. Hyperlipidemia 63256599 E78.5 Continue with atorvastat in. [id number] Robert Gotti MD Main Office [address] [facility] [address] [place] [address] 06/05/2018 15:03:50 06/05/2018 16:17:08 Type 2 diabetes mellitus 00823913 E11.9 His CGM did not work but he has been checking his sugars a couple of times a day and they have improved since he started the lantus and has been watching his diet. We will order the Oj sensor and gave him a Oj machine we had in the office. He will increase his lantus to 15 units and will increase again to 20 units if his sugars run higher than 140 consistent ly (3 am readings) in the am. [id number] Robert Gotti MD Main Office [address] [facility] [address] [place] [address] 06/18/2018 09:08:21 06/18/2018 10:02:38 Type 2 diabetes mellitus 83236179 E11.9 We discussed the somoji effect and he will google this and try to make adjustment s. His average sugars according to his CGM download is 147. He will be instructed to increase his lantus to 18 units from 15 units. Hyperlipidemia 50421410 E78.5 Continue with atorvastat in. Acute non- ST segment elevation myocardial infarction 940646361 I21.4 He will continue with plavix for 1 year, aspirin for life and metoprolol . He started cardiac rehab and is going twice a week. [id number] Robert Gotti MD Main Office [address] [place] [address] 07/23/2018 14:09:24 07/23/2018 15:07:51 Unstable angina co-occurrent and due to coronary arteriosclerosis 7112982844 3695492 I25.110 He had a stent placed to the RCA and is currently on meds. Advised to stay OOW until he is seen by cardiology the middle of July. Secondary erectile dysfunction 440825798 N52.8 Advised against viagra for now since he cannot use this as well as nitro if he needed it for chest pain. Type 2 garry betes mellitus 98550445 E11.9 After his most recent insulin increase his average sugars are 124 and his overall sugars are 95% in range. [id number] Robert Gotti MD Main Office [address] [place] [address] 08/18/2018 16:09:22 08/18/2018 17:07:06 Type 2 diabetes mellitus 05616108 E11.9 His sugars are 99% in range. He is taking daily insulin but would like to change his regimen so that he doesn't need to inject himself daily. Acute non- ST segment elevation myocardial infarction 924071601 I21.4 He will continue with plavix for 1 year, aspirin for life and metoprolol . He started cardiac rehab and is going twice a week. Essential hypertension 94252634 I10 BP now under good control. Continue current mgmt. [id number] Carolin Watt PA-C Main Office [address] [place] [address] 09/08/2018 13:13:06 09/08/2018 14:28:08 Type 2 diabetes mellitus 03181103 E11.9 After prolonged discussion when choices were given to pt about what medication s could replace insulin injections , we decided to try GLP-1 hormone for weekly injections . WE john see what is covered by the insurance. Pt. will stop insulin when he starts Trulicity injections and return with CGM in 6 weeks. Hyperlipidemia 77867730 E78.2 Immunization refused 275 949308 Z28.21 [id number] Neftali prabhakar [place] Main Office [address] [place] [address] 10/27/2018 15:59:55 10/27/2018 16:32:00 Type 2 diabetes mellitus 60371391 E11.9 WEll controlled diabetes. PT. does not need insulin at this point. Doing very well with diet alone. Will continue CGM personal use , diet and cardiac rehab. If glucose goes up w/i the next 4-6 weeks, will start pioglitazo ne 15 mg daily. F/u 3 m. [id number] Robert Gotti MD Main Office [facility] [address] [place] [address] 02/17/2019 15:43:42 02/17/2019 16:38:16 Adult health examination 376896673 Z00.00 Refuses pneumonia vaccine. We discussed colonoscop y and he will make his own appointmen t. Type 2 garry betes mellitus 15551506 E11.9 He is no longer on meds but A1C remains very good at 6.6 so will continue to simply monitor. He will make his own eye appointmen t. Administra tion of viral vaccine 73230700 Z23 Bilateral shoulder joint pain 1064165569 9678846 M25.511 M25.512 [id number] Robert Gotti MD Main Office [address] [place] [address] [place] [address] 05/12/2020 11:08:01 05/17/2020 14:49:14 Type 2 diabetes mellitus 45001035 E11.9 We will give him a free sample of a second generation oj CGM and will put in for a PA. [id number] KELESY Sharp Main Office [address] [place] [address] 10/24/2020 15:04:22 10/24/2020 15:54:27 Postconcussion syndrome 94504901 F07.81 no ibuprofen or motrin, tylenol every 6 hours as needed. hydration, lots of rest, Screens, reading, activity- may all worsen headache and concussion symptoms, take frequent breaks. no work for 1 week. 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 We did discuss amitripyli ne and referral to concussion clinic as options if sx are not improving. ALIDA concussion form provided as a guideline for typical sx, red flag sx and returning to normal activities . 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 He immediatel y had frontal headache and his head snapped back. Overall sx are a little better since it happened but still very much present. [id number] Alexandrea Yoon [facility] Main Office [address] [address] 10/31/2020 13:51:39 10/31/2020 14:34:05 Postconcussion syndrome 98670530 F07.81 no ibuprofen or motrin, tylenol every [...] sx and returning to normal activities . [id number] Robert Gotti MD [facility] [address] [address] 08/27/2021 08:28:01 08/27/2021 11:03:59 Acute sinusitis 90035307 J01.90 He has a fever and cough as well as sinus pain on the right. This could represent sinusitis or CAP. Will treat with an abx and he will call next week if his symptoms persist. Hyperlipidemia 09570844 E78.2 Continue with atorvastat in. Type 2 garry betes mellitus 07443548 E11.9 He is currently off all meds and has been trying to keep this under control with diet and exercise. [id number] Alexandrea Yoon [facility] Main Office [address] [address] 10/26/2021 08:52:08 10/26/2021 09:49:44 Neck pain 63890713 M54.2 hx of chronic neck pain with surgery x 2. sx have returned and he is very concerned about the numbness as he does not want to lose feeling in his arm. affecting sleep, ADLs, work. Will check XR and order MRI, recommend ibuprofen as needed, suggest gabapentin but he would like to hold off at this time. [id number] Robert Gotti MD Main Office [address] [address] [facility] [place] [address] 01/08/2022 14:13:40 01/08/2022 15:22:22 Adult health examination 395173354 Z00.00 Refuses pneumonia vaccine. We discussed colonoscop y and he opted for cologuard. Chest pain 41817818 R07. 9 He has a f/u with cardiologi st this month. Essential hypertension 56812649 I10 BP running high but he states that it is normal when he checks it at home. Gout 60619861 M10.9 No recent attacks. Not taking allopurino l. Type 2 garry betes mellitus 44725501 E11.9 He is currently off all meds and has been trying to keep this under control with diet and exercise. He will get his A1C done since it has been a while since he was checked. Screening for malignant neoplasm of colon 238034608 Z12.11 Z12.12 Hepatitis C screening 41 6264182 Z11.59 Hyperlipidemia 60099393 E78.2 Continue with atorvastat in. [id number] Carolin Watt PA-C Main Office [address] [address] [place] [address] 02/12/2022 11:57:30 02/12/2022 11:58:01 [id number] OUSMANE MADDEN MD Main Office [address] [place] [address] 02/22/2022 10:27:55 02/22/2022 11:28:28 Weakness present 490183329 M62.81 Cough 22520443 R05.9 - with associated body aches, chills and sore throat- pt is visibly acutely ill and on PE there were diminished lung sounds- rapid flu and RSV were negative- will start patient on treatment for pneumonia (amoxicill in 1g TID for 7 days)- chest x-ray ordered- to help with the cough ordered sherwin loyolals Upper resp iratory infection 97459651 J06.9 [id number] Robert Gotti MD [facility] [address] [place] [address] 03/14/2022 08:18:43 03/26/2022 15:24:22 Type 2 diabetes mellitus 07212394 E11.9 No changes in mgmt since his readings are generally between 90 and 140 with some outliers. We will see him back in 4 months and he will get labs done before that time. Hepatitis C screening 41 9812512 Z11.59 [id number] Robert Gotti MD Main Office [address] [place] [address] 06/07/2022 08:29:52 06/07/2022 10:35:16 [id number] Robert Gotti MD [facility] [address] [place] [address] 06/13/2022 08:37:59 06/13/2022 14:49:09 Chest pain 13115273 R07.9 He has a f/u with cardiologi st this month. Acute non- ST segment elevation myocardial infarction 634825924 I21.4 His plavix was stopped and he was started on brillinta. He continues with carvedilol . He will start cardiac rehab and will follow up with cardiology later this week. Essential hypertension 30064729 I10 Continue with current mgmt and he will follow it at home. Hyperlipidemia 05456413 E78.2 Continue with atorvastat in and ezetimibe. Type 2 garry betes mellitus 19248774 E11.9 No changes in mgmt since his readings are generally between 90 and 140 with some outliers. We will see him back in 3 months and he will get labs done before that time. [id number] Robert Gotti MD [facility] [address] [place] [address] 07/11/2022 08:20:31 07/11/2022 10:41:22 Acute non-ST segment elevation myocardial infarction [id number] I21.4 Followed by cardiology . His brillinta [...] to return to work 07/27/22. Essential hypertension [id number] I10 Continue with current mgmt and he will follow it at home. BP has been very good and has been at goal. Hyperlipidemia 45022680 E78.2 Continue with atorvastat in and ezetimibe. His last LDL was not at goal= 129. He was not yet on ezetimibe and was not always c/w atorvastat in 80 mg. We will recheck his fasting lipid level. Type 2 garry betes mellitus [id number] E11.9 No changes in mgmt since his readings are generally between 90 and 140 with some outliers. He will get his A1C done and then will make a f/u appointmen t for 3 months after his labs are done. [id number] Bren Kwan RN Main Office [address] [place] [phone] 09/20/2022 14:23:33 10/17/2022 07:52:15 [id number] Robert Gotti MD Main Office [address] [place] [phone] 02/21/2023 09:21:57 02/21/2023 09:59:18 Adult health examination [id number] Z00.00 Refuses pneumonia vaccine. We discussed colonoscop y and he opted for cologuard. He also refuses a flu vaccine and a shingles vaccine. Type 2 garry betes mellitus [id number] E11.9 No changes in mgmt since his readings are generally between 90 and 140 with some outliers. He will get his A1C done and then will make a f/u appointmen t for 6 months. Essential hypertension 61259158 I10 Continue with current mgmt and he will follow it at home. BP has been very good and has been at goal. Hyperlipidemia 50958677 E78.2 Continue with atorvastat in and ezetimibe. His last LDL was at goal=39. Repeat fasting lipid level next year. Coronary arteriosclerosis 48605898 I25.10 Followed regularly by cardiology . His last KS was in May 2022. [id number] Robert Gotti MD Main Office [address] [facility] [address] [place] [place] [address] 08/20/2023 14:51:08 08/20/2023 15:47:08 Type 2 diabetes mellitus 05260578 E11.9 His readings have been running high over the past few months often with readings >than 250. He has been unable to tolerate metformin, trulicity and ozempic. We will do a script for ken and refer him to endocrinol mary. Pain of right wrist [id number] 56964 M25.531 Fell and used his right arm to break his fall. Pain in left foot [id number] 8639 96060 M79.672 Fell at home injuring his right foot. Hyperlipidemia 62063072 E78.5 Continue with atorvastat in and ezetimibe. His last LDL was at goal=39. Repeat fasting lipid level next appointmen t. Medial epi condylitis of right elbow joint [id number] 37348 M77.01 He will do exercises at home and will call for a rheum referral if this persists. Essential hypertension 66372799 I10 Continue with current mgmt and he will follow it at home. he did not take his meds today since he had to mota out of the house this am. [id number] Robert Gotti MD Main Office [address] [facility] [address] [place] [address] 10/04/2023 09:36:53 10/04/2023 10:23:55 Upper abdominal pain [id number] R10.10 No clear etiology for his pain. Doubt cardiac since the pain is non exertional and can start when he is in bed at rest. He is followed by a cardiologi [facility] ed type 2 diabetes mellitus [id number] E11.65 His A1C in July was 6.8 [...] [place] Member ID Guarantor Name 07/11/2022 1 [facility] [id number] Chase J Fitzell [id number] Chase J Fitzell 09/16/2022 1 [facility] ([facility] [id number] Chase J Fitzell [id number] Chase J Fitzell 02/21/2023 1 [facility] [id number] Chase J Fitzell [id number] Chase J Fitzell 08/20/2023 1 [facility] [id number] Chase J Fitzell [id number] Chase J Fitzell 10/04/2023 1 [facility] [id number] Chase J Fitzell [id number] Chase J Fitzell Notes Date Note Type [...] be changed in the future by his financial analysis advisor.Diabetes F/UReported bypatient.Notes:He is using only insulin (lantus) once daily to control his sugars. He follows them at home and states that they have been running less than 200 all the time. He has adjusted his diet and will be seeing a medicare coordinator to help. He will get his A1C checked next week. His last A1C was 8.8.HyperlipidemiaRepo rted bypatient.Type of hyperlipidemia:hyperch olesterolemia Duration:chronic Control:not at goal Current Therapy:last LDL level: (129); last HDL level: (29) Compliance:compliant with diet; exercises; He had not been c/w diet and exercise but restarted since his recent KS. Complications:coronary artery disease Risk Factors:positive family history of premature arteriosclerotic cardiovascular disease;diabetes;hyper tension;obesity;low HDL levelHypertension F/UReported bypatient.Associated Symptoms:no dizziness; no lightheadedness; no chest pain; no shortness of breath; no palpitations; no edema; no calf pain with exertion Lifestyle:regular exercise; limiting/avoiding salt Medications:taking medications as directed; no side effects from medication Robert Gotti MD [address] [address], [place], [phone], [facility] 07/11/2022 10:32:31 09/16/2022 text/html Hospitalization Contact RecordReported bypatient.Follow UpHospital: [facility]; admit date: (Please enter in format [...] w/ stent to RCA 2018 presented to [facility] w/ CP.Ad,mitted for ACS r/wilfrido ACS found-plan for f/u w/ cardiology-09/16 and 09/17 CM spoke to patient in hospital and after d/Kala f/u appt w/ card 09/18-No PCP f/u wanted at this time Bren Kwan RN [facility], [facility] 10/17/2022 07:52:14 02/21/2023 text/html Generic HPI TemplateReported bypatient.Notes:He was laid off from his job last month. He has been much more relaxed since then. He is collecting unemployment and looking for a new job.Followed by cardiology, seen last week and currently w/o symptoms.He is currently managing his diabetes with lantus only. Also has been working on lifestyle changes. Robert Gotti MD [address] [address], [place], [phone], [facility] 02/21/2023 12:54:38 08/20/2023 text/html Diabetes F/URepo rted bypatient.Notes:He has tried ozempic, trulicity and metformin but could tolerate these because of severe nausea and abdominal pain preventing him from eating. His sugars are generally >250 and it seems to make no difference what he eats. He has been to a medicare coordinator but did not find this helpful.Hypertension F/UReported [...] with certain movements. Robert Gotti MD [address] [facility] [address], [place], [address], [facility] 08/20/2023 18:04:53 10/04/2023 text/html He has been [...] or metformin. He has an appointment with [facility] next month. Robert Gotti MD [address] [address], [place], [phone], [facility] 10/04/2023 12:47:27
== END 2024-05-12 12:29 | disposition home or self-care (01) ==
LOC: HO.HOSX 12:28
PROVIDERS: Visit Provider Orthopaedic Surgery
DX: M25.512 Pain in left shoulder (principal); M25.511 Pain in right shoulder; M25.811 Other specified joint disorders, right shoulder; M75.42 Impingement syndrome of left shoulder
CPT/HCPCS: 20610; 73030; J1010; J2003

== ENCOUNTER 2024-09-27 15:20 | Outpatient (AMB) | payer BC, SELFPAY ==
--- NOTE | 2024-09-27 15:26 | MHC.OFFVIS ---
Vital Signs 09/27/24 15:27 Height 5 ft 6 in Weight 209 lb 14.081 oz BMI 33.9 BP 130/80 Blood Pressure Location Lt brachial Position Sitting Pulse 76 Pulse Source Monitor Intake Visit Reasons: HLD (hyperlipidemia) Intake Note: HLD Lining Sewer Required: No Accompanied by: Self / Same As Patient Allergies [facility] Adverse Reaction (Verified 05/12/24 10:01) Vomiting Medication List - Last Reconciled 09/27/24 by Clifford Myrick MD amlodipine 2.5 mg PO DAILY aspirin 81 mg PO DAILY atorvastatin 80 mg PO BEDTIME carvedilol 6.25 mg PO BID clopidogrel 75 mg PO DAILY empagliflozin (Jardiance) 25 mg PO DAILY ezetimibe (Zetia) 10 mg PO DAILY insulin glargine (Lantus Solostar U-100 Insulin) units subcut lorazepam (Ativan) 0.5 mg PO BID PRN nitroglycerin 0.4 mg sublingual Q5M PRN omeprazole 40 mg PO DAILY HPI Comments Details: Pleasant 57 year gentleman here for follow-up. He previously had LAD and RCA PCI. Recently presented with NSTEMI underwent circumflex PCI. He did well after the PCI and was doing well with cardiac rehabilitation. He returns now because he went to the emergency department for chest pain. He said he had twinges on the left side of his chest and then persistent chest discomfort in his left pectoral area which radiated to the shoulder and left arm. These symptoms are present for 6 hours before he went to the emergency department. His high sensitive troponin level was normal. His ECG was also normal. He spent another 8 hours emergency department and then was discharged home. He is quite frustrated because he has been getting the same pain is randomly. He walks his dog daily and is in the [place] going up hill at times. He is saying that off and on he has felt similar pains while going up but this is not a consistent symptoms. Since his PCI has had similar episodes requiring ER visit and blood workup a few times. His biomarkers have never been abnormal. His ECG is completely normal. We discussed that his chest pain could be from other causes and we started omeprazole and low-dose amlodipine thinking that he may have acid reflux with esophageal spasm. He returns for follow-up and has been feeling much better. His symptoms have improved significantly after addition of omeprazole amlodipine. He is walking his dog and has been doing well. 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 02/10/23: He returns for follow-up. Occasionally he gets left-sided chest discomfort. This is nonexertional. When he is walking his dog he has no symptoms. He is under lot of stress because he got laid off from his job. he has applied for new job and is waiting. He is saying that he gets angry very easily these days. He is asking if any of the medications are playing a role in that. 08/22/23: He returns for follow-up. He had a mechanical fall while he was in the garage hitting left side of his chest as well as hip. There is bruising over the left hip area but no bruising on the chest but he has been experiencing chest pain since then. This is a reproducible left chest wall tenderness and it is pleuritic. Clearly musculoskeletal in origin. 6225: He is here for follow-up. Denying any chest discomfort or shortness of breath. He has been walking his dog 2 miles every day without any exertional symptoms. No bleeding concerns. Last PCI was in 2022. [facility] Medical History HLD (hyperlipidemia) HTN (hypertension) CAD (coronary artery disease) Surgical History History of appendectomy History of umbilical hernia repair History of neck surgery History of cardiac cath Family History Mother HTN (hypertension) Father HTN (hypertension) Social History Household Members: Spouse Housing: House Do you presently have visiting nurse or other home services: No Alcohol intake: never Patient Tobacco Use Status: Never used Tobacco Review of Systems Const Denies chills, Denies fatigue, Denies fever(s), Denies frequent falls, Denies weakness, Denies weight gain and Denies weight loss ENT Denies dizziness Card Denies chest pain, Denies leg edema, Denies lightheadedness, Denies palpitations, Denies dyspnea and Denies dyspnea on exertion Resp Denies cough, Denies dyspnea and Denies dyspnea on exertion GI Denies hematochezia Musc Denies abnormal gait, Denies muscle weakness, Denies numbness, Denies radiating pain into limb and Denies tingling Neuro Denies abnormal gait, Denies dizziness, Denies frequent falls, Denies numbness, Denies tingling and Denies weakness Endo Denies fatigue and Denies palpitations Physical Exam Vital Signs: Last Vital Signs Pulse 76 09/27/24 15:27 BP 130/80 09/27/24 15:27 BMI result Body Mass Index 33.9 GENERAL APPEARANCE: in no acute distress, pleasant. NECK: no carotid bruit, no jugular venous distention. SKIN: no suspicious lesions, warm and dry. HEART: no murmurs, regular rate and rhythm. LUNGS: clear to auscultation bilaterally. ABDOMEN: soft, nontender. EXTREMITIES: no edema. PERIPHERAL PULSES: equal. NEUROLOGIC: No gross deficits, AAO X 3 Office Procedures EKG Details: Sinus rhythm 76 beats per minute, normal axis, minimal voltage criteria for left ventricular hypertrophy, inferior infarct, QTC 427 milliseconds. 14194-[id number], Complete Assessment & Plan Assessment & Plan (1) HTN (hypertension): Code(s): I10 - Essential (primary) hypertension Category: Medical (2) HLD (hyperlipidemia): Code(s): E78.5 - Hyperlipidemia, unspecified Category: Medical (3) Stable angina: Code(s): I20.8 - Other forms of angina pectoris Category: Medical Plan Pleasant 59 year gentleman who is here for follow-up. He has background history of coronary disease with multiple PCIs. Last PCI was in 2022. I have advised him to stop the aspirin and continue clopidogrel monotherapy from here onwards. He will be taking clopidogrel nursing home unless there is any bleeding concerns. Blood pressure is well controlled. I have advised him to do a fasting lipid panel. Target LDL is 55 or below. Thank you for allowing me to participate in the care of your patient. Please feel free to contact me if you have any questions. Orders: Orders Lipid Panel Today E78.5 - Hyperlipidemia, unspecified Coding Level of Care Code Est Pt Level 4 (06137) Diagnoses HTN (hypertension) I10 HLD (hyperlipidemia) E78.5 Stable angina I20.8 CPT Codes EKG - CPT: 06212-Hpcyiwvlojejlowps, Complete ([id number])
[2024-09-27 15:27] VITALS: BP 130/80; PULSE 76; BMI 33.9
--- OUTSIDE RECORDS SUMMARY | 2024-09-27 16:32 | XMS_ITS ---
Author Name [facility] ([place] Organization [facility] Address [address] [place] [id number] Support Name Relationship Address Phone BARRERA LE Next of Kin [address] [place] [phone] BARRERA LE Emergency Contact [address] [place] [phone] Selected Encounter This section includes the information on record at OR for the Encounter. Date/Time Encounter Type Encounter Description Reason Provider Source September 14, 2024 09:30 AM Outpatient Encounter AUDIOLOGY ICD-10-CM Z02.89 Encounter for other administrative examinations [facility] Encounter Template Text not used by OR Assessments - Encounter Diagnoses This section includes the primary and secondary diagnoses documented for the Encounter. Date/Time Primary/Secondary Diagnosis Diagnosis Name Provider Source September 14, 2024 10:51 AM PRIMARY Encounter for other administrative examinations [facility] [place] [facility] September 14, 2024 10:51 AM SECONDARY Sensorineural hearing loss, bilateral [facility] [place] [facility] September 14, 2024 10:51 AM SECONDARY Tinnitus, bilateral [facility] [place] [facility] Encounter Notes: All associated encounter notes This section contains the clinical notes associated to the Encounter. Date/Time Encounter Note(s) Provider Source September 14, 2024 09:30 AM C & P EXAMINATION NOTE: LOCAL TITLE: COMPENSATION AND PENSION EXAM STANDARD TITLE: C & P EXAMINATION NOTE DATE OF NOTE: SEPTEMBER 14, 2024@09:30 ENTRY DATE: SEPTEMBER 14, 2024@10:46:56 AUTHOR: MACKENZIE GRAY COSIGNER: URGENCY: STATUS: COMPLETED COMPENSATION AND PENSION EXAM Has ADDENDA Hearing Loss and Tinnitus Disability Benefits Questionnaire Name of patient/: DENISEALYSONShelbie ROEL GAVIOTA REYNOLDS Is this DBQ being completed in conjunction with a OR [phone], C&P Examination Request? [X] Yes [ ] No How was the examination completed? (check all that apply) [X] In-person examination [X] Records reviewed [ ] Examination via approved video telehealth [ ] Other, please specify in comments box Comments: ALIDA and Evidence Review Indicate method used to obtain medical information to complete this document: [ ] Review of available records (without in-person or video telehealth examination) using the Acceptable Clinical Evidence (ALIDA) process because the existing medical evidence provided sufficient information on which to prepare the questionnaire and such an examination will likely provide no additional relevant evidence. [ ] Review of available records in conjunction with an interview with the (without in-person or telehealth examination) using the ALIDA process because the existing medical evidence supplemented with an interview provided sufficient information on which to prepare the questionnaire and such an examination would likely provide no additional relevant evidence. Evidence Review Evidence reviewed (check all that apply): [X] [facility] electronic health record [X] VA e-folder This exam is for: Tinnitus only (proposal engineer or non-proposal engineer clinician) SECTION 2: TINNITUS 1. Medical history Does the report recurrent tinnitus: Yes Date and circumstances of onset of tinnitus: Zearing reports longstanding, intermittent ringing tinnitus in both ears. He reports his tinnitus is present more often than not. 2. Etiology of tinnitus At least as likely as not (likelihood is at least approximately balanced or nearly equal, if not higher) caused by or a result of noise exposure. 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 A significant threshold shift occurred in the left ear at 4000 Hz between enlistment audiogram dated 06/18/86 and discharge audiogram dated 09/06/94. Given 's reports of exposure to hazardous noise while he was in the service, and a significant threshold shift occurred in the left ear at 4000 Hz between enlistment audiogram and discharge audiogram, 's tinnitus is at least as likely as not a result of noise exposure. 3. Functional impact of tinnitus ------- Does the 's tinnitus impact ordinary conditions of daily life, including ability to work: No 4. Remarks, if any, pertaining to tinnitus:: No response provided NOTE: VA may request additional medical information, including additional examinations if necessary to complete VA's review of the 's application. /alonzo/ Obinna Gómez, [facility] Hydraulic Chair Assembler Signed: 09/14/2024 10:46 09/14/2024 ADDENDUM STATUS: COMPLETED Should become eligible for [place] hearing aid services, he is a candidate for aids. If a candidate and eligible, medical clearance from ENT would not be required. 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 He reports his tinnitus is present more often than not. reports, My tells me I'm deaf. I can't distinguish sounds. Things are garbled. 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 He reports a positive history of vertigo, stating he has had 13 episodes over the past few years. denies congenital family history of hearing loss, or otologic history/complaints. He denies significant occupational or recreational noise exposure, but does report one of his work places had a conveyer belt. /alonzo/ Obinna Gómez, [facility] Hydraulic Chair Assembler Signed: 09/14/2024 10:56 [facility]
== END 2024-09-27 15:45 | disposition home or self-care (01) ==
LOC: HO.HCS 15:20
PROVIDERS: PCP Internal Medicine; Visit Provider Internal Medicine Cardiovascular Disease
DX: I10 Essential (primary) hypertension (principal); E78.5 Hyperlipidemia, unspecified; I20.89 Other forms of angina pectoris
CPT/HCPCS: 93010; 99214

== ENCOUNTER → 2024-09-27 15:20 | Outpatient (BNVA) | payer BC, SELFPAY | PROVIDERS: PCP Internal Medicine; Visit Provider Internal Medicine Cardiovascular Disease | DX: E78.5 Hyperlipidemia, unspecified (principal); I10 Essential (primary) hypertension; I25.118 Atherosclerotic heart disease of native coronary artery with other forms of angina pectoris; Z98.61 Coronary angioplasty status; Z98.890 Other specified postprocedural states | CPT/HCPCS: 93005 ==

== ENCOUNTER 2024-10-13 15:24 | Outpatient (AMB) | payer BC, SELFPAY ==
--- NOTE | 2024-10-13 15:30 | A.OFFVIS_ITS ---
Intake Visit Reasons: INJ- Bilateral shoulder injections, last 05/12/24 Intake Note: Chase is a 59 year old male who presents with complaints of bilateral shoulder pains. He describes his pains as sharp in nature. He has had cortisone injections in the past which gave him fairly good relief. He has also tried Tylenol and anti-inflammatory medicines which gave him minimal relief. He wishes to hold off on surgery if at all possible. Allergies dulaglutide (From [facility]) Adverse Reaction (Verified 05/12/24 10:01) Vomiting Medication List - Last Reconciled 10/14/24 by Brandan Lebron MD amlodipine 2.5 mg PO DAILY atorvastatin 80 mg PO BEDTIME carvedilol 6.25 mg PO BID clopidogrel 75 mg PO DAILY empagliflozin (Jardiance) 25 mg PO DAILY ezetimibe (Zetia) 10 mg PO DAILY insulin glargine (Lantus Solostar U-100 Insulin) units subcut lorazepam (Ativan) 0.5 mg PO BID PRN nitroglycerin 0.4 mg sublingual Q5M PRN omeprazole 40 mg PO DAILY [facility] Medical History HLD (hyperlipidemia) HTN (hypertension) CAD (coronary artery disease) Surgical History History of appendectomy History of umbilical hernia repair History of neck surgery History of cardiac cath Family History Mother HTN (hypertension) Father HTN (hypertension) Social History Household Members: Spouse Housing: House Do you presently have visiting nurse or other home services: No Alcohol intake: never Patient Tobacco Use Status: Never used Tobacco Physical Exam Const Other: Well-nourished well-developed very friendly male awake alert and oriented x3 in no acute distress Extrem Other: Bilateral upper extremity examination shows good capillary refill, no skin lesions noted, normal sensation light touch Bilateral shoulder examination shows 4+ out of 5 strength with supraspinatus testing, positive impingement signs, tenderness over his acromioclavicular joint, no instability Office Procedures AMB Joint Injection/Aspiration Joint Injection/Aspiration Primary Site: left shoulder Prep: site was prepped using aseptic technique Injected: 40 mg of, DepoMedrol and 1% plain lidocaine Procedure: The patient tolerated the procedure well Coding 57579 - Large joint Procedure code (CPT) selection complete AMB Joint Injection/Aspiration Joint Injection/Aspiration Primary Site: right shoulder Prep: site was prepped using aseptic technique Injected: 40 mg of, DepoMedrol and 1% plain lidocaine Procedure: The patient tolerated the procedure well Coding 92451 - Large joint Procedure code (CPT) selection complete Assessment & Plan Assessment & Plan (1) Impingement syndrome of left shoulder: Code(s): M75.42 - Impingement syndrome of left shoulder Category: Medical (2) Impingement of right shoulder: Code(s): M25.811 - Other specified joint disorders, right shoulder Category: Medical Plan Mr. Stearns presents with bilateral shoulder pains due to impingement syndrome. The risks and benefits of bilateral shoulder cortisone injections were discussed at length with the patient. The patient wished to proceed. He tolerated the injections well. He will continue with his home stretching program to prevent stiffness. He will follow up with me on an as-needed basis should his symptoms not plateau at an unacceptable level over the next few months. Feel free to call me at any time should questions regarding his orthopedic management arise. I spent 21 minutes in reviewing the patient's records and imaging studies, seeing the patient and documenting in the medical record. Orders: Orders AMB Joint Injection/Aspiration 10/13/24 M25.811 - Other specified joint disorders, right shoulder AMB Joint Injection/Aspiration 10/13/24 M75.42 - Impingement syndrome of left shoulder Coding Level of Care Code Est Pt Level 3 (91773) Complex EM visit Add On G2211 Diagnoses Impingement syndrome of left shoulder M75.42 Impingement of right shoulder M25.811 CPT Codes Coding - Large joint: 71898 - Large joint ([id number]) Coding - 17273 Large joint: 43869 - Large joint ([id number])
== END 2024-10-13 15:47 | disposition home or self-care (01) ==
LOC: HO.HOS 15:24
PROVIDERS: PCP Internal Medicine; Visit Provider Orthopaedic Surgery
DX: M75.42 Impingement syndrome of left shoulder (principal); M25.811 Other specified joint disorders, right shoulder
CPT/HCPCS: 20610; 99213

== ENCOUNTER → 2024-10-13 15:24 | Outpatient (BNVA) | payer BC, SELFPAY | PROVIDERS: PCP Internal Medicine; Visit Provider Orthopaedic Surgery | DX: M75.42 Impingement syndrome of left shoulder (principal); M25.811 Other specified joint disorders, right shoulder; M25.511 Pain in right shoulder; M25.512 Pain in left shoulder | CPT/HCPCS: 20610; J1010; J2003 ==